=== PATIENT | male | born 1935 | race Caucasian/White ===

== ENCOUNTER 2019-06-24 10:34 | Outpatient (CLI) | payer MEDICARE, SELFPAY ==
[2019-06-24 10:57] LABS: Basophils Percent Auto 0.1 % (0.2-1.2); Eosinophils Absolute Auto 0.1 K/mm3 (0-0.3); Eosinophils Percent Auto 1.7 % (0-4.4); Hematocrit 34.5 % (42.0-52.0); Hemoglobin 11.4 g/dL (14.0-18.0); Immature Granulocyte Absolute 0.03 K/mm3 (0.00-0.031); Immature Granulocyte Percent A 0.4 % (0-0.5); Lymphocytes Absolute Auto 2.21 K/mm3 (0.9-3.2); Lymphocytes Percent Auto 31.1 % (18.3-44.2); Mean Corpuscular Hemoglobin 32.4 pg (26-34); Mean Platelet Volume 8.9 fl (7.4-10.4); Monocytes Absolute Auto 0.5 K/mm3 (0.1-0.6); Monocytes Percent Auto 7.2 % (2.6-8.5); Neutrophils Absolute Auto 4.2 K/mm3 (1.3-6.7); Neutrophils Percent Auto 59.5 % (45.5-73.1); Platelet Count Result 158 k/mm3 (150-375); Red Blood Count 3.52 M/mm3 (4.6-6.20); Red Cell Distribution Width 13.4 % (11.5-14.5); White Blood Count 7.1 K/mm3 (4.5-10.0)
[2019-06-24 11:11] LABS: Alanine Aminotransferase 20 U/L (4-50); Albumin Level 4.1 g/dL (3.5-5.1); Alkaline Phosphatase 101 U/L (38-126); Aspartate Amino Transferase 28 U/L (17-59); Bilirubin,Total 0.5 mg/dL (0.2-1.3); Blood Urea Nitrogen 58 mg/dL (9-20); Calcium 9.3 mg/dL (8.4-10.2); Carbon Dioxide 31 mmol/L (22-30); Chloride 107 mmol/L (98-107); Cholesterol 158 mg/dL (0-200); Estimated Glomerular Filt Rate 26; Glucose 110 mg/dL (75-110); HDL Direct 39 mg/dL; Potassium 4.5 mmol/L (3.4-5.0); Sodium 143 mmol/L (137-145); Triglycerides 97 mg/dL (<150)
[2019-06-24 11:22] LABS: LDL Cholesterol Direct 85 mg/dL
[2019-06-24 11:41] LABS: Thyroid Stimulating Hormone 0.811 uIU/mL (0.465-4.680)
== END 2019-06-24 10:35 | disposition home or self-care (01) ==
LOC: ANHLAB 10:36
PROVIDERS: PCP Family Medicine; Visit Provider Family Medicine
DX: I50.20 Unspecified systolic (congestive) heart failure (principal); E78.2 Mixed hyperlipidemia; I10 Essential (primary) hypertension; E11.49 Type 2 diabetes mellitus with other diabetic neurological complication
CPT/HCPCS: 36415; 80053; 80061; 84443; 85025

== ENCOUNTER 2019-08-31 06:20 | Observation (INO) | payer MEDICARE, SELFPAY ==
[2019-08-31] VITALS (12 sets, daily range): BP systolic 120–148; BP diastolic 69–85; PULSE 56–77; RESP 12–20; TEMP 36–36.8; O2SAT 94–97; BMI 39.9
--- NOTE | ~2019-08-31 | US_ITS ---
US venous doppler [facility] DATE: 09/01/2019 10:12 INDICATION: Swelling of the lower extremities TECHNIQUE: Real-time and color flow imaging and Doppler analysis of the veins of the lower extremitie s COMPARISON: None FINDINGS: The greater saphenous veins are patent. There is spontaneous and phasic flow and normal aug mentation and color flow signal and normal compression of the deep veins of both lower extremities. IMPRESSION: No evidence of deep venous thrombosis of the legs Reviewed, dictated and finalized at [facility] Reviewed, dictated and finalized at [facility].
--- NOTE | ~2019-08-31 | XR_ITS ---
XR chest 2V DATE: 08/31/2019 06:54 INDICATION: Shortness of breath TECHNIQUE: AP and lateral views COMPARISON: 04/04/2016 portable AP chest at 1225 hours FINDINGS: Cardiac megaly. Aortic calcification and tortuosity. Left-sided dual-lead pacemaker device with leads overlying right atrial appendage and right ventricle. There is mild pulmonary vascular congestion and redistribution, prominence of the minor fissure and s uggestion of minimal pleural effusions. Minimal perihilar and lower lung infiltrates which may be sec ondary to pulmonary edema versus atelectasis or pneumonia or aspiration. Diffuse osteopenia. IMPRESSION: Mild congestive heart failure, new since 04/04/2016 Mild bilateral perihilar and lower lung infiltrates may be secondary to pulmonary edema, pneumonia an d/or aspiration Reviewed, dictated and finalized at [facility]. IMPRESSION: Mild congestive heart failure, new since 04/04/2016 Mild bilateral perihilar and lower lung infiltrates may be secondary to pulmona ry edema, pneumonia and/or aspiration
--- NOTE | 2019-08-31 06:21 | ED.SOB ---
HPI - SOB/Dyspnea General Chief Complaint: Shortness of Breath/Dyspnea <Kizzy Victor MD - Last Filed: 08/31/19 06:45> Stated Complaint: diff breathing <Kizzy Victor MD - Last Filed: 08/31/19 06:45> Time Seen by Provider: 08/31/19 06:21 <Kizzy Victor MD - Last Filed: 08/31/19 06:45> Source: patient, family and EMS <Kizzy Victor MD - Last Filed: 08/31/19 06:45> Mode of arrival: EMS <Kizzy Victor MD - Last Filed: 08/31/19 06:45> Limitations: no limitations <Kizzy Victor MD - Last Filed: 08/31/19 06:45> History of Present Illness HPI Narrative: Patient is an 83-year-old male with a history of hypertension, coronary artery disease, numerous AR with stenting, CHF, and Stage IV CKD who presents for evaluation of shortness of breath. Patient reportedly has had developing shortness of breath over the past several weeks. Patient denies cough or chest pain, states he just feels as if he can not get a deep breath patient denies fever, chills, cough, congestion, sore throat. No loss of taste or sense or smell. Patient does report some mild lower extremity swelling, difficulty breathing when he lays flat. Patient has been using his CPAP machine at night, but awakened because he felt as if he could not get a deep breath. Patient denying any chest pain, palpitations. No recent immobility. No recent surgeries. No recent long car or air travel. <Kizzy Victor MD - Last Filed: 08/31/19 06:45> Related Data Home Medications: Home Medications Medication Instructions Recorded Confirmed aspirin 81 mg tablet,delayed 81 mg PO DAILY 04/17/19 08/31/19 release cholecalciferol (vitamin D3) 100 3,000 unit PO DAILY cap 04/17/19 08/31/19 mcg (4,000 unit) capsule clopidogrel 75 mg tablet 75 mg PO DAILY 04/17/19 08/31/19 furosemide 40 mg tablet 40 mg PO TID tablet 04/17/19 08/31/19 levothyroxine 50 mcg capsule 50 mcg PO DAILY 04/17/19 08/31/19 loteprednol etabonate 0.5 % eye 3 drop EACH EYE HS 04/17/19 08/31/19 gel drops vitamin B complex 1 tablet PO DAILY 04/17/19 08/31/19 Daily Multiple Vitamins/Iron 1 ea DAILY 08/31/19 08/31/19 acetaminophen 500 mg PO Q6H PRN 08/31/19 08/31/19 alprazolam 0.5 mg PO PRN PRN 08/31/19 08/31/19 carboxymethylcellulose sodium 1 drp OPHTHALMIC (EYE) 08/31/19 08/31/19 [Refresh Tears] USEASDIRECTD PRN dextran 70-hypromellose [GenTeal 1 drp OPHTHALMIC (EYE) PRN PRN 08/31/19 08/31/19 Tears Mild] diphenhydramine-acetaminophen 1 tablet PO HS PRN 08/31/19 08/31/19 [Tylenol PM Extra Strength] vit C,H-Vj-fpmmi-lutein-zeaxan 1 tablet DAILY 08/31/19 08/31/19 [PreserVision AREDS-2] <Kizzy Victor MD - Last Filed: 08/31/19 06:45> Allergies/Adverse Reactions: Allergies Allergy/AdvReac Type Severity Reaction Status Date / Time Androgenic Anabolic Steroid Allergy Unknown breathing Verified 04/17/19 08:26 problems betamethasone Allergy Unknown htn Verified 04/17/19 08:26 bupivacaine Allergy Unknown htn Verified 04/17/19 08:26 lidocaine Allergy Unknown htn Verified 04/17/19 08:26 norflurane [Pod-Care 100KG] Allergy Unknown htn Verified 04/17/19 08:26 oxycodone Allergy Unknown breathing Verified 04/17/19 08:26 troubles pentafluoropropane (HFC Allergy Unknown htn Verified 04/17/19 08:26 [id number]) [Pod-Care 100KG] triamcinolone Allergy Unknown htn Verified 04/17/19 08:26 [Pod-Care 100KG] trolamine salicylate Allergy Unknown htn Verified 04/17/19 08:26 [Aspercreme] <Kizzy Victor MD - Last Filed: 08/31/19 06:45> Review of Systems Review of Systems: Narrative: CONSTITUTIONAL: Denies fever, chills, or sweats. EYES: Denies visual changes ENT: Denies rhinorrhea, congestion, sore throat, or otalgia. CARDIOVASCULAR: Denies chest pain, palpitations, reports bilateral lower extremity edema RESPIRATORY: Denies cough, reports shortness of breath GASTROINTESTINAL: Denies abdominal pain, nausea, vomiting, or di
--- NOTE | 2019-08-31 06:32 | ECG_ITS ---
Measurements Intervals [place] Rate: 81 P: 199 KS: 205 QRS: -44 QRSD: 174 T: 146 QT: 422 QTc: 491 Interpretive Statements ELECTRONIC ATRIAL PACEMAKER WITH INHIBITION ELECTRONIC VENTRICULAR PACEMAKER FUSION COMPLEXES AND VENTRICULAR PREMATURE COMPLEX NO FURTHER INTERPRETATION IS POSSIBLE ATYPICAL ECG Electronically Signed On 08-31-2019 7:40:32 CDT by Jaime Fuchs D.O.
[2019-08-31 06:52] LABS: Basophils Percent Auto 0.2 % (0.2-1.2); Eosinophils Absolute Auto 0.2 K/mm3 (0-0.3); Eosinophils Percent Auto 3.1 % (0-4.4); Hematocrit 30.6 % (42.0-52.0); Hemoglobin 9.8 g/dL (14.0-18.0); Immature Granulocyte Absolute 0.01 K/mm3 (0.00-0.031); Immature Granulocyte Percent A 0.2 % (0-0.5); Lymphocytes Absolute Auto 1.58 K/mm3 (0.9-3.2); Lymphocytes Percent Auto 26.2 % (18.3-44.2); Mean Corpuscular Hemoglobin 31.8 pg (26-34); Mean Corpuscular Volume 99.4 fl (80-100); Mean Platelet Volume 9.9 fl (7.4-10.4); Monocytes Absolute Auto 0.6 K/mm3 (0.1-0.6); Monocytes Percent Auto 9.8 % (2.6-8.5); Neutrophils Absolute Auto 3.7 K/mm3 (1.3-6.7); Neutrophils Percent Auto 60.5 % (45.5-73.1); Platelet Count Result 150 k/mm3 (150-375); Red Blood Count 3.08 M/mm3 (4.6-6.20); Red Cell Distribution Width 13.8 % (11.5-14.5)
[2019-08-31 07:06] LABS: Prothrombin Time 13.3 Seconds (11.1-14.7)
[2019-08-31 07:07] LABS: Alanine Aminotransferase 18 U/L (4-50); Albumin Level 3.8 g/dL (3.5-5.1); Alkaline Phosphatase 130 U/L (38-126); Anion Gap 10.5 mmol/L (7-16); Aspartate Amino Transferase 28 U/L (17-59); Bilirubin,Total 0.7 mg/dL (0.2-1.3); Blood Urea Nitrogen 50 mg/dL (9-20); Calcium 8.8 mg/dL (8.4-10.2); Carbon Dioxide 25 mmol/L (22-30); Chloride 109 mmol/L (98-107); Estimated CRCL calculation 28 ml/min; Estimated Glomerular Filt Rate 27; Glucose 105 mg/dL (75-110); Potassium 4.5 mmol/L (3.4-5.0); Sodium 140 mmol/L (137-145)
[2019-08-31 07:08] LABS: Partial Thromboplastin Time 33.1 SECONDS (22.3-36.8)
[2019-08-31 07:19] LABS: NT Pro B Type Natriuretic Pept 5900 PG/ML (5-100); Troponin I 0.032 ng/mL (0.000-0.034)
[2019-08-31] MEDS: FUROSEMIDE INJ 40 MG/4 ML VIAL IV PUSH ×2 (08:03→21:18)
--- NOTE | 2019-08-31 09:58 | ADMGEN ---
This patient, Desean Montiel, was admitted to Medical Room [facility]- at 0945. Patient/family oriented to hospital policies and general routines including ID bracelet, bed and alarms, visiting hours, pain management, procedures, bathroom and other care routines, personal items, smoking policy, room service/diet, and visiting hours. Valuables list has been completed. Information on how to activate the Rapid Response Team has been discussed. Patient/Family are encouraged to report perceived risks to care and to ask questions if they do not understand what they are told or what they should do.
--- NOTE | 2019-08-31 15:15 | PM.IMHP ---
H&P: HPI History of Present Illness Chief complaint: Shortness of breath. 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 Over the last couple of months he has noticed that he tires more easily when up walking and doing activities, however it has gotten significantly worse over the past week or so. His is currently in [facility] after a hip fracture and it is to the point where he is having to sit and rest to catch his breath 3 or 4 times when walking from the entrance to the hospital up to the rehab center. He tells me that it feels as though he just cannot get in a deep breath, and in fact he reports that early this morning it felt like I had a 500 pound weight on my chest and I could not take in a breath. He then went to the living room to the recliner, and felt a little bit better when sitting upright. With further questioning, he does admit that he has not been taking his morning dose of Lasix for the past 1 week, as he has been coming to the hospital to visit his and he did not want to be going to the bathroom all the time. He has chronic lower extremity edema and is unsure whether not it has changed recently. He does not believe that he has had any significant weight gain. It is also noted that he has been having difficulties with his CPAP, and he is typically only wearing it 2 to 3 hours a night. He has not had any further chest pain or heaviness. He denies fever, chills, sweats, cold and flu symptoms, and cough. No dysphagia or concerns for aspiration. No pleuritic pain or calf pain. No history of venous thromboembolism. Review of Systems Review of Systems: Narrative: Twelve systems were reviewed with pertinent positives and negatives as per HPI. No recent travel or sick contacts. He denies cough. No nausea, vomiting, or diarrhea. Patient and daughter also reports that he has seemed more weak over the past couple of months, and in fact has had several falls, 2 just this week. He reports that his right knee just gives way and he falls. There has been no head trauma or loss of consciousness. States his diabetes is pretty well controlled. He has not had any significant highs or lows. Except as documented, all other systems were reviewed and are negative. [facility] Past Medical History Medical History Benign prostatic hyperplasia Chronic anemia Chronic kidney disease, stage 4 (severe) Baseline creatinine is around 2.40. Combined congestive systolic and diastolic heart failure With improved ejection fraction on echocardiogram in November 2014. Coronary artery disease With history of GA and multiple PCIs. Cyst of lateral meniscus Essential hypertension GI bleed (~04/2012) Due to internal hemorrhoid bleeding. Gout Hypothyroidism Male erectile disorder Mixed hyperlipidemia Obstructive sleep apnea on CPAP Paroxysmal atrial fibrillation Presence of biventricular cardiac pacemaker For symptomatic bradycardia. 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 Surgical History Surgical History History of appendectomy History of arthroplasty of right knee (~10/2011) History of cardiac catheterization With PTCA/ stent on multiple occasions. History of cardiac radiofrequency ablation History of cholecystectomy History of corneal transplant History of gastric bypass (~2006) History of surgery on arm Right arm ORIF after
[2019-08-31] MEDS: FUROSEMIDE INJ 40 MG/4 ML VIAL 20 MG IV PUSH (22:07)
[2019-08-31] MEDS: carvediloL 6.25 MG TABLET PO (22:08)
[2019-08-31] MEDS: ALPRAZolam 0.5 MG TABLET PO (22:09)
[2019-08-31] MEDS: ACETAMINOPHEN 500 MG TABLET PO (22:09)
--- NOTE | 2019-08-31 23:10 | PHAR ---
Pharmacy verified: Loteprednol Etabonate [Lotemax] 0.5% SUSP *SHAKE* and Instill 1 drop in each eye at bedtime
[2019-09-01] VITALS (10 sets, daily range): BP systolic 128–131; BP diastolic 67–86; PULSE 70–93; RESP 15–18; TEMP 36–36.2; O2SAT 95–98
[2019-09-01] MEDS: LEVOTHYROXINE SODIUM 50 MCG TABLET PO (05:29)
[2019-09-01 05:46] LABS: Basophils Percent Auto 0.2 % (0.2-1.2); Eosinophils Absolute Auto 0.2 K/mm3 (0-0.3); Eosinophils Percent Auto 2.6 % (0-4.4); Hematocrit 31.3 % (42.0-52.0); Hemoglobin 10.1 g/dL (14.0-18.0); Immature Granulocyte Absolute 0.01 K/mm3 (0.00-0.031); Immature Granulocyte Percent A 0.2 % (0-0.5); Lymphocytes Absolute Auto 1.71 K/mm3 (0.9-3.2); Lymphocytes Percent Auto 29.2 % (18.3-44.2); Mean Corpuscular HGB Conc 32.3 g/dl (32-36); Mean Corpuscular Hemoglobin 31.7 pg (26-34); Mean Corpuscular Volume 98.1 fl (80-100); Mean Platelet Volume 10.3 fl (7.4-10.4); Monocytes Absolute Auto 0.6 K/mm3 (0.1-0.6); Monocytes Percent Auto 9.6 % (2.6-8.5); Neutrophils Absolute Auto 3.4 K/mm3 (1.3-6.7); Neutrophils Percent Auto 58.2 % (45.5-73.1); Platelet Count Result 163 k/mm3 (150-375); Red Blood Count 3.19 M/mm3 (4.6-6.20); Red Cell Distribution Width 13.6 % (11.5-14.5); White Blood Count 5.9 K/mm3 (4.5-10.0)
[2019-09-01 06:17] LABS: Anion Gap 9.5 mmol/L (7-16); Blood Urea Nitrogen 52 mg/dL (9-20); Calcium 8.8 mg/dL (8.4-10.2); Carbon Dioxide 28 mmol/L (22-30); Chloride 106 mmol/L (98-107); Estimated CRCL calculation 27 ml/min; Estimated Glomerular Filt Rate 26; Glucose 114 mg/dL (75-110); Magnesium 2.3 mg/dL (1.6-2.3); Potassium 4.5 mmol/L (3.4-5.0); Sodium 139 mmol/L (137-145)
[2019-09-01 06:32] LABS: Troponin I 0.041 ng/mL (0.000-0.034)
[2019-09-01 08:15] LABS: Glucose Point of Care 180 (65-105)
[2019-09-01] MEDS: allopurinoL 300 MG TABLET PO (09:11)
[2019-09-01] MEDS: TAMSULOSIN HCL 0.4 MG CAPSULE PO (09:12)
[2019-09-01] MEDS: carvediloL 6.25 MG TABLET PO (09:12)
[2019-09-01] MEDS: CLOPIDOGREL BISULFATE 75 MG TABLET PO (09:12)
[2019-09-01] MEDS: ASPIRIN 81 MG ENTERIC TABLET PO (09:12)
[2019-09-01] MEDS: ATORVASTATIN 10 MG TABLET PO (09:12)
[2019-09-01] MEDS: THERAPEUTIC MULTIVITAMINS/MINERALS TAB (*BKC) 1 TABLET BY MOUTH (09:12)
[2019-09-01] MEDS: CHOLECALCIFEROL 1,000 UNIT TABLET 3000 UNITS PO (09:12)
[2019-09-01] MEDS: OPTI-GEN TAB 1 TABLET BY MOUTH (09:13)
[2019-09-01] MEDS: FUROSEMIDE INJ 100 MG/10 ML VIAL 60 MG IV PUSH (09:13)
[2019-09-01] MEDS: GABAPENTIN 300 MG CAPSULE PO (09:13)
[2019-09-01] MEDS: VITAMIN B COMPLEX CAPSULE 1 CAP PO (09:13)
[2019-09-01] MEDS: ISOSORBIDE MONONITRATE 60 MG TAB.ER.24H PO (09:13)
--- NOTE | 2019-09-01 11:14 | PM.IMPN ---
Progress Note: A&P Assessment and Plan (1) Acute on chronic congestive heart failure: Code(s): I50.9 - Heart failure, unspecified Status: Acute Assessment and Plan: The patient reports that he did not take his morning lasix dose for 1 week. He reports significant symptomatic improvement following diuresis and he has had good urine output with 2.8 liters since admission. Continue IV furosemide and likely switch to PO regimen later today. Monitor I/O and daily weights. He is established with Dr. Saldivar for primary cardiology. I have consulted cardiology and recommendations are greatly appreciated. (2) Elevated troponin: Code(s): R79.89 - Other specified abnormal findings of blood chemistry Status: Acute Assessment and Plan: His troponins were elevated up to 0.041 with flat trend. This is likely elevated in the setting of chronic kidney disease and acute on chronic CHF exacerbation and not due to ACS. He notes significant improvement in his dyspnea following diuresis. (3) Coronary artery disease: Code(s): I25.10 - Atherosclerotic heart disease of [place] coronary artery without angina pectoris Status: Acute Assessment and Plan: Chronic and stable with no complaints of angina. Continue ASA and plavix. Continue carvedilol. Continue atorvastatin. (4) Chronic anemia: Code(s): D64.9 - Anemia, unspecified Status: Acute Assessment and Plan: Hemoglobin was down about a gram from baseline at 9.8. This may be dilutional from hypervolemia. Repeat hemoglobin is 10.1 and Hct 31.3. He has chronic anemia, likely due to his chronic renal insufficiency. Further workup outpatient as indicated per his PCP's discretion. Continue to monitor. Transfuse PRN to maintain hemoglobin >7. (5) Chronic kidney disease, stage 4 (severe): Code(s): N18.4 - Chronic kidney disease, stage 4 (severe) Status: Acute Assessment and Plan: Creatinine is stable on review of previous labs. Cr is 2.4 today and BUN 52 which appears close to baseline. Avoid nephrotoxins and renally dose medications. Monitor renal function closely while diuresing. (6) Essential hypertension: Code(s): I10 - Essential (primary) hypertension Status: Acute Assessment and Plan: Blood pressures were reviewed and are reasonably controlled. Continue carvedilol, furosemide, and imdur. Continue to monitor. (7) Hypothyroidism: Code(s): E03.9 - Hypothyroidism, unspecified Status: Acute Assessment and Plan: TSH was 1.25. Continue levothyroxine. (8) Type 2 diabetes mellitus: Code(s): E11.9 - Type 2 diabetes mellitus without complications Status: Acute Assessment and Plan: Blood sugars were reviewed and are reasonably controlled. Hold glimepiride while hospitalized. Repeat hemoglobin A1c is pending. Continue sliding scale insulin, ACHS glucose monitoring, and hypoglycemia protocol. (9) Obstructive sleep apnea on CPAP: Code(s): G47.33 - Obstructive sleep apnea (adult) (pediatric); Z99.89 - Dependence on other enabling machines and devices Status: Acute Assessment and Plan: He is working with his PCP to change his home CPAP settings. He reports that he slept very well with the CPAP here overnight. (10) Benign prostatic hyperplasia: Code(s): N40.0 - Benign prostatic hyperplasia without lower urinary tract symptoms Status: Acute Assessment and Plan: Chronic with no acute issues. Continue tamsulosin. (11) Generalized weakness: Code(s): R53.1 - Weakness Status: Acute Assessment and Plan: He reports progressive weakness and two falls in the past several months. Initiate fall precautions. PT/OT are seeing the patient in consultation and recommendations are appreciated. Subjective Date/time seen: 09/01/19 11:14 Interval history: Mr. Montiel is a ple
[2019-09-01 11:21] LABS: Glucose Point of Care 199 (65-105)
--- NOTE | 2019-09-01 12:38 | PM.CNCAR ---
Assessment and Plan Assessment and plan (1) Congestive heart failure: Code(s): I50.9 - Heart failure, unspecified Status: Acute Assessment and Plan: acute on chronic systolic and diastolic heart failure secondary to medication noncompliance effectively reducing Lasix to once daily for the past week resulting in decompensated heart failure. Patient states he has returned to baseline and has no complaints at this time. Denies shortness of breath or chest pain. Continue home cardiovascular medical therapy including furosemide. Counseled ports of compliance. Patient states he has learned his lesson and will do so but only did this noted to function as he was visiting his . (2) CAD (coronary artery disease): Code(s): I25.10 - Atherosclerotic heart disease of [place] coronary artery without angina pectoris Status: Acute Assessment and Plan: continue home medical therapy. Mild flat troponin elevation not acute coronary syndrome type 2 infarct secondary to acute on chronic decompensated heart failure and chronic kidney disease. (3) Elevated troponin: Code(s): R79.89 - Other specified abnormal findings of blood chemistry Status: Acute Assessment and Plan: as above. Not ACS. (4) Essential hypertension: Code(s): I10 - Essential (primary) hypertension Status: Acute Assessment and Plan: Continue medical therapy. Fair control overall. Additional Plan Disposition per hospitalist service. No further inpatient cardiovascular workup indicated. Patient will be discharged on same cardiovascular medical therapy. He will follow up in the office with Dr. Saldivar. Contact the office on Monday for follow-up appointment. History of Present Illness History of Present Illness Consult date/time: Date of service:09/01/19 12:38 This is a cardiology consultation at the request of Angeles Zaidi of the [facility] for our opinion regarding congestive heart failure and elevated troponin. Requesting physician: Angeles Zaidi PA-C Consult reason: congestive heart failure Reason For Visit: Shortness of breath. Narrative: Patient is a very pleasant 83-year-old male followed by Dr. Saldivar with past medical history severe coronary disease, ischemic cardiomyopathy with improvement in EF, chronic systolic diastolic heart failure, obstructive sleep apnea on CPAP, diabetes mellitus, chronic kidney disease stage 3 to 4, chronic anemia who was in his usual state of health when over the past week he states he has been more fatigued, shortness of breath with any activity with worsening lower extremity edema. States he had been skipping his morning Lasix dose as he had been visiting his who was in the hospital so that he did not have to use the restroom frequently. He denies weight gain. Denies any exertional chest pain but noted when he could not breathe chest felt heavy but this is completely resolved. He did admit to orthopnea improved sitting up in the recliner but states now he is at his baseline. Troponins are mildly elevated but fairly flat 0.04. Patient feels well would like to be discharged home. He denies any fevers or chills. He has no other complaints and notes his edema is improving as well. Review of Systems Review of Systems: All systems reviewed & are unremarkable except as noted in HPI and below Constitutional: Constitutional: Reports as per HPI, Reports no additional constitutional complaints and Reports fatigue Eyes: Eyes: Reports as per HPI and Reports no additional eye complaints ENT: Reports system reviewed and no additional complaints, except as documented and Reports as per HPI Cardiovascular: Cardiovascular: Reports as per HPI, Reports no additional cardiovascular complaints, Denies chest pain, Reports pedal edema, Reports leg edema and Denies palpitations Respiratory: Respiratory: Reports as per HPI, Reports no additio
[2019-09-01 16:43] LABS: Glucose Point of Care 103 (65-105)
--- NOTE | 2019-09-01 16:43 | PM.DS ---
DS: Admitting Diagnosis Admitting Diagnosis Admitting Diagnosis: Heart failure, unspecified DS: Discharge Diagnosis Discharge Diagnosis (1) Acute on chronic congestive heart failure: Qualifiers: Heart failure type: unspecified Qualified Code(s): I50.9 - Heart failure, unspecified Code(s): I50.9 - Heart failure, unspecified Status: Acute Assessment and Plan: Discharge Summary: Date of service 09/01/19 Mr. Montiel is an 84 y.o. male with PMH significant for CAD, combined systolic and diastolic congestive heart failure, ANTHONY, T2DM, HTN, CKD, chronic anemia, and hypothyroidism who presented to the emergency department for the evaluation of dyspnea. He reported progressive dyspnea on exertion. He endorsed that he missed his morning dose of lasix for the past week because he was visiting his who was in rehab and he did not want to have to use the restroom while visiting. Initial workup in the emergency department was notable for Hb 9.8, Hct 30.6, BUN 50, Cr 2.3, CO2 31, BNP 5900, troponin with elevation up to 0.041 with a flat trend, and CXR with mild pulmonary vascular congestion and redistribution, suggestion of minimal pleural effusions, and minimal perihilar and lower lung infiltrates. He was treated with IV lasix for a presumed acute on chronic congestive heart failure exaceration and admitted to the hospitalist service for further evaluation and management. He was treated with continued IV lasix. He noted significant symptomatic improvement following diuresis. He had excellent urine output with 3.7L output during his stay. His dyspnea resolved completely. He was evaluated by cardiology and no further cardiovascular workup was felt to be indicated. Cardiology recommended he continue his current medication regimen and follow-up with his primary claims attorney, Dr. Saldivar, outpatient. He felt much better and wished to be discharged home. He was discharged in stable condition on the afternoon of 09/01/19. (2) Elevated troponin: Code(s): R79.89 - Other specified abnormal findings of blood chemistry Status: Acute Assessment and Plan: His troponins were elevated up to 0.041 with flat trend. This was likely elevated in the setting of chronic kidney disease and acute on chronic CHF exacerbation and not due to ACS. He notes significant improvement in his dyspnea following diuresis. Cardiology was consulted and his troponin elevation was not felt to be due to ACS. (3) Coronary artery disease: Code(s): I25.10 - Atherosclerotic heart disease of [place] coronary artery without angina pectoris Status: Acute Assessment and Plan: Chronic and stable with no complaints of angina. Continue ASA and plavix. Continue carvedilol. Continue atorvastatin. (4) Chronic anemia: Code(s): D64.9 - Anemia, unspecified Status: Acute Assessment and Plan: Hemoglobin was down about a gram from baseline at 9.8 at presentation. This may be dilutional from hypervolemia. Repeat hemoglobin was 10.1 and Hct 31.3. He has chronic anemia, likely due to his chronic renal insufficiency. Further workup outpatient as indicated per his PCP's discretion. (5) Chronic kidney disease, stage 4 (severe): Code(s): N18.4 - Chronic kidney disease, stage 4 (severe) Status: Acute Assessment and Plan: Creatinine was stable on review of previous labs. He needs to continue follow-up with Dr. Krishnamurthy. (6) Essential hypertension: Code(s): I10 - Essential (primary) hypertension Status: Acute Assessment and Plan: Blood pressures were reviewed and are reasonably controlled. Carvedilol, furosemide, and imdur were continued. (7) Hypothyroidism: Code(s): E03.9 - Hypothyroidism, unspecified Status: Acute Assessment and Plan: TSH was 1.25. Levothyroxine was continued. (8) Type 2 diabetes mellitus: Code(s): E11.9 - Type
[2019-09-02 11:45] LABS: Hemoglobin A1C 5.6 % (<5.7)
== END 2019-09-01 18:29 | disposition home or self-care (01) ==
LOC: ANHED 07:03 → ANH2MED 08:18
PROVIDERS: Emergency Medicine; Physician Assistant; Admitting Provider Family Medicine; Emergency Provider General Practice; PCP Family Medicine; Visit Provider Internal Medicine
DX: I13.0 Hypertensive heart and chronic kidney disease with heart failure and stage 1 through stage 4 chronic kidney disease, or unspecified chronic kidney disease (principal); I50.43 Acute on chronic combined systolic (congestive) and diastolic (congestive) heart failure; E11.22 Type 2 diabetes mellitus with diabetic chronic kidney disease; N18.4 Chronic kidney disease, stage 4 (severe); T50.1X6A Underdosing of loop [high-ceiling] diuretics, initial encounter; Z91.128 Patient's intentional underdosing of medication regimen for other reason; R79.89 Other specified abnormal findings of blood chemistry; I25.10 Atherosclerotic heart disease of native coronary artery without angina pectoris; E11.319 Type 2 diabetes mellitus with unspecified diabetic retinopathy without macular edema; E11.40 Type 2 diabetes mellitus with diabetic neuropathy, unspecified; E78.2 Mixed hyperlipidemia; D64.9 Anemia, unspecified; G47.33 Obstructive sleep apnea (adult) (pediatric); E03.9 Hypothyroidism, unspecified; N40.0 Benign prostatic hyperplasia without lower urinary tract symptoms; M10.9 Gout, unspecified; R53.1 Weakness; Z79.82 Long term (current) use of aspirin; Z79.899 Other long term (current) drug therapy; Z79.84 Long term (current) use of oral hypoglycemic drugs; Z87.891 Personal history of nicotine dependence; Z91.81 History of falling; Z94.7 Corneal transplant status; Z95.0 Presence of cardiac pacemaker; Z96.651 Presence of right artificial knee joint; Z98.61 Coronary angioplasty status; Z98.84 Bariatric surgery status; Z99.89 Dependence on other enabling machines and devices
CPT/HCPCS: 36415; 71046; 80048; 80053; 83036; 83735; 83880; 84443; 84484; 85025; 85610; 85730; 93005; 93970; 96374; 96376; 97161; 97165; 99285; A9270; G0378; J1940

== ENCOUNTER 2019-10-13 04:35 | Inpatient (IN) | payer MEDICARE, SELFPAY ==
[2019-10-13] VITALS (58 sets, daily range): BP systolic 63–124; BP diastolic 30–75; PULSE 69–113; RESP 10–34; TEMP 36.3–36.8; O2SAT 68–100
--- NOTE | ~2019-10-13 | CT_ITS ---
EXAMINATION: CT brain wo con DATE: 10/20/2019 13:04 INDICATION: Fusion. Respiratory arrest. TECHNIQUE: Computed tomography (CT) of the head was performed without intravenous contrast. The dose- length product was 605.33 mGy-cm. The mA was adjusted according to patient size. Iterative reconstruc tion technique was employed. COMPARISON: None FINDINGS: No acute intracranial hemorrhage, infarction, mass or mass effect. No ventriculomegaly or m idline shift. Mild generalized atrophy. There are scattered mild periventricular and subcortical whit e matter changes, most likely related to small vessel ischemic disease (microangiopathy). Basilar cis terns are patent. There is intracranial atherosclerosis. Paranasal sinuses and mastoids are pneumatiz ed. No depressed skull fractures. IMPRESSION: 1. No acute intracranial abnormality. 2: Chronic age-related findings. Reviewed, dictated and finalized at location A.
--- NOTE | ~2019-10-13 | US_ITS ---
US venous doppler [facility] DATE: 10/13/2019 14:47 INDICATION: Respiratory failure TECHNIQUE: Real-time and color flow imaging and Doppler analysis of the veins of both lower extremiti es COMPARISON: 09/01/2019 venous duplex examination of the lower extremities FINDINGS: The greater saphenous veins are patent. There is spontaneous and phasic flow and normal aug mentation and color flow signal and normal compression of the deep veins of both legs. IMPRESSION: No evidence of deep venous thrombosis of the legs Reviewed, dictated and finalized at Location A. Reviewed, dictated and finalized at location A.
--- NOTE | ~2019-10-13 | XR_ITS ---
EXAMINATION: XR chest 1V portable DATE: 10/15/2019 05:47 INDICATION: Acute respiratory failure TECHNIQUE: frontal view of the chest was obtained. COMPARISON: Chest radiograph dated 10/14/2019 FINDINGS: Endotracheal tube tip 3.1 cm above the avis. Nasogastric tube extends below the left hemidiaphragm with distal tip collimated off the study. Unchanged small bilateral pleural effusions. Persistent airspace opacities in the left lower lung zon e. No pneumothorax. Cardiomegaly with pulmonary vascular congestion but no kayla pulmonary edema. Rosa l lead pacemaker seen with leads projecting over the expected locations of the right atrium and right ventricle. Old healed right rib fracture. IMPRESSION: 1. Unchanged small bilateral pleural effusions with associated left basilar atelectasis and/or pneumo mann. 2. Cardiomegaly and pulmonary vascular congestion. Reviewed, dictated and finalized at location A. IMPRESSION: 1. Unchanged small bilateral pleural effusions with associated left basilar ate lectasis and/or pneumonia. 2. Cardiomegaly and pulmonary vascular congestion.
--- NOTE | ~2019-10-13 | CT_ITS ---
EXAMINATION: CT chest high resolution wo co DATE: 10/13/2019 11:49 INDICATION: Atypical pneumonia TECHNIQUE: Computed tomography (CT) of the chest was performed without intravenous contrast. Automate d exposure control and iterative reconstruction technique were employed. Exam dose: 908.94 mGy-cm to anna exam DLP. High-resolution COMPARISON: None FINDINGS: Cardiomegaly. There is extensive coronary artery calcification. Pacemaker leads in the righ t atrium and right ventricle. No pericardial effusion. There is thoracic aortic and great vessel calcification. Abdominal aortic calcification. There is pr ominent calcification at the origins of the celiac, SMA and particularly renal arteries. ET tube in satisfactory position. There is dependent infiltrate or atelectasis of the left upper lobe. There is more prominent atelect asis/consolidation of the lower lobes, with air bronchograms, left greater than right. The left lower lobe is virtually completely consolidated, with air bronchograms. There is slight right pneumothorax. Small right pleural effusion, mild to moderate left pleural effusion. Status post cholecystectomy. There are slightly angulated nondisplaced apparently recent bilateral anterior second through seventh rib fractures, possibly related to cardiopulmonary resuscitation There is mild anterior wedge compression fracture deformity of undetermined age of T12. Diffuse idiop athic skeletal hyperostosis of the thoracic spine. IMPRESSION: Bilateral lower lobe atelectasis/consolidation, involving virtually the entire left lowe r lobe and to a lesser extent the right lower lobe Mild dependent infiltrate or atelectasis in the left upper lobe Slight right pneumothorax ET tube in satisfactory position Slight right and mild to moderate left pleural effusion Cardiomegaly Extensive atherosclerosis Bilateral anterior second through seventh rib fractures, possibly due to cardiopulmonary resuscitatio n Mild anterior wedge compression fracture deformity of T12 Reviewed, dictated and finalized at Location A. Reviewed, dictated and finalized at location A. IMPRESSION: Bilateral lower lobe atelectasis/consolidation, involving virtuall y the entire left lower lobe and to a lesser extent the right lower lobe Mild dependent infiltrate or atelectasis in the left upper lobe Slight right pneumothorax ET tube in satisfactory position Slight right and mild to moderate left pleural effusion Cardiomegaly Extensive atherosclerosis Bilateral anterior second through seventh rib fractures, possibly due to cardio pulmonary resuscitation Mild anterior wedge compression fracture deformity of T12
--- NOTE | ~2019-10-13 | XR_ITS ---
EXAMINATION: XR abdomen NG/feed tube insert INDICATION: OG placement TECHNIQUE: Portable AP KUB-NG at 0454 hours COMPARISON: 08/29/2011 FINDINGS: The OG tube is in the stomach. Cardiomegaly is noted. Interstitial and airspace opacities a re present in the mid and lower lung zones. Surgical clips in the right upper quadrant are likely fro m prior cholecystectomy. IMPRESSION: 1. OG tube in the stomach. 2. Cardiomegaly with pulmonary edema. Reviewed, dictated and finalized at location A.
--- NOTE | ~2019-10-13 | XR_ITS ---
EXAMINATION: XR chest 1V portable INDICATION: Attempted central line insertion TECHNIQUE: Portable AP chest at 0917 hours COMPARISON: 0453 hours FINDINGS: The endotracheal tube ends approximately 2.3 cm above the avis. The nasogastric tube is f ollowed as far as the stomach. Its tip is beyond the inferior margin of the radiograph. No central ve nous catheter is identified. There is stable cardiomegaly. Diffuse interstitial pattern persists with slight worsening in the left midlung zone. There are small pleural effusions. No pneumothorax is chong ntified. A dual-lead cardiac pacemaker of the left chest wall ends with leads in expected locations. IMPRESSION: 1. Cardiomegaly with pulmonary edema, slightly worse on the left midlung zone. 2. No pneumothorax. 3. Small pleural effusions. Reviewed, dictated and finalized at location A.
--- NOTE | ~2019-10-13 | XR_ITS ---
XR chest 1V portable 10/19/2019 07:02 Indication: Dyspnea. Respiratory distress. Procedure: AP portable chest Comparison: Comparison to multiple prior studies sequentially, with oldest reviewed study dated 10/2019. Findings: Moderate cardiomegaly. Pacemaker leads are stable. PICC line tip in the SVC. Diffuse bilate ral airspace disease. Small left pleural effusion. No pneumothorax. There is atherosclerosis. Impression: 1: Cardiomegaly with persistent unchanged diffuse bilateral airspace disease, most likely edema. Supe rimposed pneumonia not excluded. Reviewed, dictated and finalized at location A. Impression: 1: Cardiomegaly with persistent unchanged diffuse bilateral airspace disease, m ost likely edema. Superimposed pneumonia not excluded.
--- NOTE | ~2019-10-13 | XR_ITS ---
XR chest 1V portable DATE: 10/21/2019 05:58 INDICATION: Congestive heart failure, pneumonia TECHNIQUE: Portable AP chest on 10/21/2019 at 0535 hours COMPARISON: 10/19/2019 portable AP chest at 0524 hours FINDINGS: Left-sided dual-lead pacemaker device with leads overlying right atrium and right ventricle . Cardiomegaly. There is pulmonary vascular congestion and redistribution. There are mild bilateral p ulmonary infiltrates the central and lower lung zones. Aortic calcification and unfolding. Diffuse osteopenia. Old right rib fractures. IMPRESSION: Cardiomegaly, congestive heart failure and pulmonary edema; cannot exclude pneumonia No significant change since 10/19/2019. Reviewed, dictated and finalized at location A.
--- NOTE | ~2019-10-13 | XR_ITS ---
EXAMINATION: XR chest PICC line INDICATION: PICC insertion TECHNIQUE: Portable AP chest at 1313 hours COMPARISON: 10/18/2019 FINDINGS: A right upper extremity PICC has been inserted which ends with its tip in the midsuperior v jose cava. There is stable cardiomegaly. Airspace opacities of the mid and lower lung zones persist wi thout significant change. A small left pleural effusion is suggested. There is no pneumothorax. A linda l-lead cardiac pacemaker of the left chest wall ends with leads in expected locations. IMPRESSION: 1. Right upper extremity PICC insertion ending in the midsuperior vena cava. 2. Stable cardiomegaly. 3. Airspace opacities of the mid and lower lung zones, consistent with atelectasis and/or pulmonary e surinder and/or pneumonia. 4. Small left pleural effusion. Reviewed, dictated and finalized at location B. IMPRESSION: 1. Right upper extremity PICC insertion ending in the midsuperior vena cava. 2. Stable cardiomegaly. 3. Airspace opacities of the mid and lower lung zones, consistent with atelecta sis and/or pulmonary edema and/or pneumonia. 4. Small left pleural effusion.
--- NOTE | ~2019-10-13 | XR_ITS ---
EXAMINATION: XR chest 1V portable INDICATION: Acute respiratory failure TECHNIQUE: Portable AP chest at 0517 hours COMPARISON: 10/13/2019 FINDINGS: The endotracheal tube ends approximately 3.8 cm above the avis. The nasogastric tube is f ollowed as far as the stomach. Its tip is beyond the inferior margin of the radiograph. A mild diffus e interstitial pattern persists without significant change. Stable cardiomegaly is noted. Small pleur al effusions are stable. More focal airspace opacity is present in the left lung base. A dual-lead ca rdiac pacemaker of the left chest wall ends with leads in expected locations. IMPRESSION: 1. Cardiomegaly with unchanged mild pulmonary edema. 2. Small pleural effusions. 3. Left basilar airspace opacity, consistent with atelectasis versus pneumonia. Reviewed, dictated and finalized at location A.
--- NOTE | ~2019-10-13 | XR_ITS ---
EXAMINATION: XR chest ET placement INDICATION: Respiratory failure, endotracheal tube placement TECHNIQUE: Portable AP chest at 0453 hours COMPARISON: 08/31/2019 FINDINGS: The endotracheal tube ends approximately 3.0 cm above the avis. The nasogastric tube is f ollowed as far as the stomach. Its tip is beyond the inferior margin of the radiograph. The left cost ophrenic angle is excluded from the examination. There are minimal interstitial and airspace opacitie s of the mid and lower lung zones. Cardiomegaly is noted. There is no pneumothorax. No definite pleur al effusion is identified. A dual-lead cardiac pacemaker of the right-sided rib fractures are noted. chest wall ends with leads in expected locations. IMPRESSION: 1. Cardiomegaly with mild pulmonary edema. 2. Nasogastric and endotracheal tubes in adequate position. Reviewed, dictated and finalized at location A.
--- NOTE | ~2019-10-13 | XR_ITS ---
EXAMINATION: XR chest 1V portable DATE: 10/18/2019 05:49 INDICATION: Acute respiratory failure TECHNIQUE: frontal view of the chest was obtained. COMPARISON: Chest radiograph dated 10/17/19 FINDINGS: Significant improvement in aeration of the left upper and mid lung zones. Persistent airspace opaciti es in the bilateral mid and lower lung zones. Likely small left pleural effusion. No pneumothorax. Ca rdiomegaly. Coronary artery stenting. Dual lead pacemaker seen with leads projecting over the expecte d locations of the right atrium and right ventricle. IMPRESSION: 1. Significant interval improvement in aeration of the left lung. 2. Airspace opacities in the bilateral mid and lower lung zones which could represent pneumonia, atel ectasis, pulmonary edema or some combination thereof along with a likely small left pleural effusion. 3. Cardiomegaly. Reviewed, dictated and finalized at location A. IMPRESSION: 1. Significant interval improvement in aeration of the left lung. 2. Airspace opacities in the bilateral mid and lower lung zones which could rep resent pneumonia, atelectasis, pulmonary edema or some combination thereof kiera g with a likely small left pleural effusion. 3. Cardiomegaly.
--- NOTE | ~2019-10-13 | XR_ITS ---
EXAMINATION: XR chest 1V portable DATE: 10/16/2019 05:48 INDICATION: Acute respiratory failure TECHNIQUE: frontal view of the chest was obtained. COMPARISON: Chest radiograph dated 10/15/2019 FINDINGS: Endotracheal tube tip 2.5 cm above the avis. Nasogastric tube extends below the left hemidiaphragm with distal tip collimated off the study. Opacities at the bilateral lower lung zones without significant interval change in the right with inc rease on the left along with new mild patchy airspace opacities in the midlung zone. No pneumothorax. Cardiomegaly with pulmonary vascular congestion but without pulmonary edema. Coronary artery stentin g. Dual lead pacemaker seen with leads projecting over the expected locations of the right atrium and right ventricle. Old right rib fracture. IMPRESSION: 1. Unchanged tiny right and small left pleural effusions 2. Opacities unchanged the right lower lung zone and with increase in the left mid and lower lung zon es which could represent atelectasis and/or pneumonia. Reviewed, dictated and finalized at location A. IMPRESSION: 1. Unchanged tiny right and small left pleural effusions 2. Opacities unchanged the right lower lung zone and with increase in the left mid and lower lung zones which could represent atelectasis and/or pneumonia.
--- NOTE | ~2019-10-13 | XR_ITS ---
EXAMINATION: XR chest 1V portable INDICATION: Attempted central line placement TECHNIQUE: Portable AP chest at 1337 hours COMPARISON: 0917 hours FINDINGS: The endotracheal tube ends approximately 2.7 cm above the avis. The nasogastric tube is f ollowed as far as the stomach. Its tip is beyond the inferior margin of the radiograph. There is stab le cardiomegaly. A diffuse interstitial pattern persists without significant change. Small pleural ef fusions are present. No pneumothorax is identified. A dual-lead cardiac pacemaker of the left chest w all ends with leads in expected locations. IMPRESSION: 1. No new central line or pneumothorax identified. 2. Cardiomegaly with pulmonary edema. 3. Small pleural effusions. Reviewed, dictated and finalized at location A.
--- NOTE | ~2019-10-13 | XR_ITS ---
EXAMINATION: XR chest 1V portable DATE: 10/17/2019 06:15 INDICATION: Acute respiratory failure TECHNIQUE: frontal view of the chest was obtained. COMPARISON: Chest radiograph dated 10/16/2019 FINDINGS: Progression of now significant opacification of the entire left hemithorax without suggestion of sign ificant associated volume loss consistent with likely large left pleural effusion with associated ate lectasis and/or pneumonia. Increasing more patchy airspace opacities in the right mid to lower lung z one. The left side of the cardiomediastinal silhouette is largely obscured however heart size appears enlarged. Coronary artery stenting. Dual lead pacemaker seen with leads projecting over the expected locations of the right atrium and right ventricle. Old right rib fracture. IMPRESSION: 1. Definite increase in a now large left pleural effusion with underlying atelectasis and/or pneumoni a. 2. Increasing patchy airspace opacities in the right mid to lower lung zone which could represent pne umonia, pulmonary edema, atelectasis or some combination thereof 3. Cardiomegaly. Reviewed, dictated and finalized at location A. IMPRESSION: 1. Definite increase in a now large left pleural effusion with underlying atele ctasis and/or pneumonia. 2. Increasing patchy airspace opacities in the right mid to lower lung zone whi ch could represent pneumonia, pulmonary edema, atelectasis or some combination thereof 3. Cardiomegaly.
--- NOTE | 2019-10-13 04:39 | PC.NURSE ---
EDP Speedy in room for intubation. 0439 - successful intubation, good equal rise and fall of chest, size 7.5 ETT, good color change, 25 at the lip.
--- NOTE | 2019-10-13 04:46 | ED.GENADULT ---
HPI - General Adult General Chief complaint: Cardiac Arrest/CPR Stated complaint: vomiting blood Time Seen by Provider: 10/13/19 04:45 History of Present Illness HPI narrative: Patient is an 84-year-old male who presents the ER with complaint of bloody sputum. Is began over the evening. He is on Plavix. Has history of heart failure and coronary disease. Patient has had weakness since last week after helping his into the house. He spent 3 days in bed after that. He has had no complaints of chest pain per family. EMS reports patient started having low sats on the way and. They have some passive breaths with BVM. Patient was awake and holding his emesis bag upon arrival to the ER but as he was transferred to the bed he lost consciousness, became cyanotic, and lost pulses. CPR initiated immediately. Related Data Home Medications Medication Instructions Recorded Confirmed aspirin 81 mg tablet,delayed 81 mg PO DAILY 04/17/19 09/12/19 release cholecalciferol (vitamin D3) 100 3,000 unit PO DAILY cap 04/17/19 09/12/19 mcg (4,000 unit) capsule clopidogrel 75 mg tablet 75 mg PO DAILY 04/17/19 09/12/19 furosemide 40 mg tablet 40 mg PO TID tablet 04/17/19 09/12/19 loteprednol etabonate 0.5 % eye 3 drop EACH EYE HS 04/17/19 09/12/19 gel drops vitamin B complex 1 tablet PO DAILY 04/17/19 09/12/19 Daily Multiple Vitamins/Iron 1 ea DAILY 08/31/19 09/12/19 GenTeal Tears Mild 1 drp OPHTHALMIC (EYE) PRN PRN 08/31/19 09/12/19 PreserVision AREDS-2 1 tablet DAILY 08/31/19 09/12/19 Refresh Tears 1 drp OPHTHALMIC (EYE) 08/31/19 09/12/19 USEASDIRECTD PRN acetaminophen 500 mg PO Q6H PRN 08/31/19 09/12/19 alprazolam 0.5 mg PO PRN PRN 08/31/19 09/12/19 diphenhydramine-acetaminophen 1 tablet PO HS PRN 08/31/19 09/12/19 [Tylenol PM Extra Strength] Allergies Allergy/AdvReac Type Severity Reaction Status Date / Time Androgenic Anabolic Steroid Allergy Unknown breathing Verified 04/17/19 08:26 problems betamethasone Allergy Unknown htn Verified 04/17/19 08:26 bupivacaine Allergy Unknown htn Verified 04/17/19 08:26 lidocaine Allergy Unknown htn Verified 04/17/19 08:26 norflurane [Pod-Care 100KG] Allergy Unknown htn Verified 04/17/19 08:26 oxycodone Allergy Unknown breathing Verified 04/17/19 08:26 troubles pentafluoropropane (HFC Allergy Unknown htn Verified 04/17/19 08:26 [id number]) [Pod-Care 100KG] triamcinolone Allergy Unknown htn Verified 04/17/19 08:26 [Pod-Care 100KG] trolamine salicylate Allergy Unknown htn Verified 04/17/19 08:26 [Aspercreme] Review of Systems Review of Systems: ROS unobtainable: Yes unobtainable due to medical condition [facility] Social History Social History (Updated 10/13/19 @ 05:59 by Lali Soriano, DO) Social History: Surrogate decision maker: Claire, spouse. Code status: Full code Smoking packs per day: 2 Smoking cigarettes per day: 40.0 Years smoked: 18 Smoking pack-years: 36.00 Smoking status: Never smoker Tobacco type: cigarettes Smoking end date: 02/07/1968 Alcohol intake: never Substance use: never Additional living arrangements comments: Patient lives with his in [facility] in [place]. They have a cat and a dog. Additional occupation/education comments: Retired. Gender identity (if verbalized by the patient): Male Spiritual care concerns: No Exam Narrative: Exam Narrative: GENERAL: Ill-appearing, obese, and rapidly losing consciousness. HEAD: Normocephalic, atraumatic. ENT: Mucous membranes moist with bloody frothy sputum.. CHEST: Agonal breathing. Coarse lung sounds with ventilations. HEART: Pulseless with cyanotic extremities and cyanotic face. ABDOMEN: Soft, nontender, nondistended. EXTREMITIES: Normal range of motion. Trace edema. SKIN: Cool, dry, cyanotic. NEURO: GCS 3. Course Reevaluation(s) Reevaluation #1: CODE BLUE initiated upon transfer from EMS stretcher to the hospital bed. Patient min
[2019-10-13 04:57] LABS: Basophils Percent Auto 0.2 % (0.2-1.2); Eosinophils Percent Auto 0.3 % (0-4.4); Hematocrit 37.9 % (42.0-52.0); Hemoglobin 11.6 g/dL (14.0-18.0); Immature Granulocyte Absolute 0.19 K/mm3 (0.00-0.031); Immature Granulocyte Percent A 1.7 % (0-0.5); Lymphocytes Absolute Auto 3.43 K/mm3 (0.9-3.2); Lymphocytes Percent Auto 30.1 % (18.3-44.2); Mean Corpuscular HGB Conc 30.6 g/dl (32-36); Mean Corpuscular Hemoglobin 31.4 pg (26-34); Mean Corpuscular Volume 102.4 fl (80-100); Mean Platelet Volume 10.2 fl (7.4-10.4); Monocytes Absolute Auto 0.5 K/mm3 (0.1-0.6); Monocytes Percent Auto 4.7 % (2.6-8.5); Neutrophils Absolute Auto 7.2 K/mm3 (1.3-6.7); Nucleated Red Blood Cells Absolute Auto 0.1 K/mm3 (0.0-0.012); Nucleated Red Blood Cells Perc 0.7 % (0.0-0.2); Platelet Count Result 178 k/mm3 (150-375); Red Cell Distribution Width 14.1 % (11.5-14.5); White Blood Count 11.4 K/mm3 (4.5-10.0)
[2019-10-13 05:07] LABS: INR 1.2; Prothrombin Time 14.6 Seconds (11.1-14.7)
[2019-10-13 05:08] LABS: Partial Thromboplastin Time 36.5 SECONDS (22.3-36.8); Potassium 3.4 mmol/L (3.4-5.0)
[2019-10-13 05:12] LABS: Alanine Aminotransferase 50 U/L (4-50); Albumin Level 3.7 g/dL (3.5-5.1); Alkaline Phosphatase 124 U/L (38-126); Anion Gap 12 mmol/L (8-16); Aspartate Amino Transferase 76 U/L (17-59); Bilirubin,Total 0.8 mg/dL (0.2-1.3); Blood Urea Nitrogen 58 mg/dL (9-20); Calcium 8.3 mg/dL (8.4-10.2); Carbon Dioxide 23 mmol/L (22-30); Chloride 103 mmol/L (98-107); Estimated CRCL calculation 22 ml/min; Estimated Glomerular Filt Rate 19; Glucose 267 mg/dL (75-110); Sodium 138 mmol/L (137-145)
--- NOTE | 2019-10-13 05:12 | PC.NURSE ---
Patient starting to move at this time. EDP Speedy notified. Per SANTO Ruff verbal order read back give Versed 1mg IVP.
[2019-10-13 05:18] LABS: NT Pro B Type Natriuretic Pept 5920 PG/ML (5-100)
[2019-10-13 05:22] LABS: Troponin I 0.051 ng/mL (0.000-0.034)
[2019-10-13 05:24] LABS: Alveolar/Arterial O2 Gradient 606.6 mmHg; Base Excess ABG -7.9 mEq/l (+/-2.0); Carboxyhemoglobin 0.6 % THb (0-2.0); Fractional Inspired Oxygen 100 %; Methemoglobin ABG 0.3 %THb (0-1.5); Oxygen Content ABG 14.2 %vol (16.0-22.0); Oxygen Saturation ABG 91.8 % (95.0-100.0); Oxyhemoglobin 90.5 % THb (90.0-100.0); PCO2 ABG 38.2 mmHg (35.0-45.0); PO2 ABG 68.2 mmHg (80.0-100.0); PO2 FiO2 Ratio Arterial Blood 0.68 %; Reduced Hemoglobin 8.6 %THb (0-5.0); Total Hemoglobin 11.1 g/dL (12.0-18.0); pH ABG 7.292 (7.350-7.450)
[2019-10-13 05:25] LABS: Arterial Blood Gas PEEP 8 cmH2O; Arterial Blood Gas Tidal Volume 450 ml; Arterial Blood Gas Vent Mode CMV; Arterial Blood Gas Ventilator rate 18 /MIN; Device VENTILATOR; Site Drawn RIGHT BRACHIAL
--- NOTE | 2019-10-13 05:30 | ECG_ITS ---
Measurements Intervals [place] Rate: 105 P: WI: 366 QRS: 95 QRSD: 142 T: -81 QT: 317 QTc: 419 Interpretive Statements ELECTRONIC VENTRICULAR PACEMAKER VENTRICULAR COUPLET AND VENTRICULAR BIGEMINY BASELINE ARTIFACT- I, II, V1 NO FURTHER INTERPRETATION IS POSSIBLE ABNORMAL ECG Electronically Signed On 10-13-2019 7:54:05 CDT by Jaime Fuchs D.O.
--- NOTE | 2019-10-13 05:48 | PC.NURSE ---
Patient has received a total of 500mL normal saline at this time.
--- NOTE | 2019-10-13 05:57 | PM.IMHP ---
H&P: HPI History of Present Illness Date/Time: 10/13/19 05:57 Chief complaint: Coughing up blood Narrative: The patient was seen and examined well still down in the ER. Desean Montiel is a 84 year old male With a past medical history of coronary artery disease, CHF, obstructive sleep apnea and chronic kidney disease stage 4 presented to the ER via EMS due to coughing up bloody sputum for 24 hours. Patient has had weakness since last week after helping his into the house. He spent 3 days in bed after that. He has had no complaints of chest pain per family. upon EMS arrival the patient was noted to have low oxygen saturations down in the 70s. They have some passive breaths with BVM. Patient was awake and holding his emesis bag upon arrival to the ER but as he was transferred to the bed he lost consciousness, became cyanotic, and lost pulses. CPR initiated immediately. ER physician reports that at the time of intubation the patient was found have frothy bloody secretions. after 5 minutes of resuscitation efforts the patient regained perfusing circulation. He was able to respond appropriately to directions. The patient is nodding appropriately to answer questions. He is moving all extremities equally. When OG was placed the patient did not have any kayla hematemesis. his x-ray is consistent with pulmonary edema. The patient's blood pressures were initially stable after resuscitation efforts. However just before my arrival at the patient's bedside patient's blood pressures dropped to the 70s systolic. The ER physician was discussing placement of a central line with the patient and his . Both the patient and his have consented the central line placement. As I left the ER the ER physician was preparing for central line placement. source of information for HPI came from ER records and family report. at the time of this dictation the patient is still in the ER. he has not arrived in the ICU. As such his home med rec a has yet to be reconciled. Review of Systems Review of Systems: ROS unobtainable: Yes unobtainable due to endotracheal tube PMFSH Past Medical History Medical History Benign prostatic hyperplasia Chronic anemia Chronic kidney disease, stage 4 (severe) Baseline creatinine is around 2.40. Combined congestive systolic and diastolic heart failure With improved ejection fraction on echocardiogram in November 2014. Coronary artery disease With history of TX and multiple PCIs. Cyst of lateral meniscus DM w/o complication type II, uncontrolled Essential hypertension GI bleed (~04/2012) Due to internal hemorrhoid bleeding. Gout Hypothyroidism Male erectile disorder Mixed hyperlipidemia Obstructive sleep apnea on CPAP Paroxysmal atrial fibrillation Presence of biventricular cardiac pacemaker For symptomatic bradycardia. 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 Surgical History Surgical History History of appendectomy History of arthroplasty of right knee (~10/2011) History of cardiac catheterization With PTCA/ stent on multiple occasions. History of cardiac radiofrequency ablation History of cholecystectomy History of corneal transplant History of gastric bypass (~2006) History of surgery on arm Right arm ORIF after fracture. History of thoracotomy (~2008) Right-sided. Status post biventricular cardiac pacemaker insertion (~03/2012) For symptomatic bradycardia. Status post surgical removal of malignant neoplasm of skin Multiple excisions of squamous cell and basal cell carcinoma of the ears, face, and hand. Family History Family History Father Family history of elevated blood lipids
--- NOTE | 2019-10-13 06:29 | PC.NURSE ---
SANTO Speedy in room for central line insertion.
--- NOTE | 2019-10-13 07:09 | PC.NURSE ---
EDP was unable to start central line at this time. Speedy spoke to finishing manager transition teacher and patient will get a central line in the ICU.
[2019-10-13] MEDS: PHENYLEPHRINE HCL INJ 50 MG in DEXTROSE 5% IN WATER 250 ML/245 ML BAG 21 ML IV CONT (08:23)
[2019-10-13 08:45] LABS: Troponin I 0.361 ng/mL (0.000-0.034)
[2019-10-13 10:23] LABS: Alveolar/Arterial O2 Gradient 350.2 mmHg; Base Excess ABG -4.6 mEq/l (+/-2.0); Device VENTILATOR; Fractional Inspired Oxygen 70 %; HCO3 ABG 20.6 mEq/l (22.0-26.0); Oxygen Content ABG 16.5 %vol (16.0-22.0); Oxygen Saturation ABG 97.7 % (95.0-100.0); Oxyhemoglobin 96.2 % THb (90.0-100.0); PCO2 ABG 38.7 mmHg (35.0-45.0); PO2 ABG 107.3 mmHg (80.0-100.0); PO2 FiO2 Ratio Arterial Blood 1.53 %; Site Drawn RIGHT BRACHIAL; Total Hemoglobin 12.1 g/dL (12.0-18.0); pH ABG 7.345 (7.350-7.450)
[2019-10-13 10:24] LABS: Arterial Blood Gas PEEP 8 cmH2O; Arterial Blood Gas Tidal Volume 450 ml; Arterial Blood Gas Vent Mode CMV; Arterial Blood Gas Ventilator rate 18 /MIN
[2019-10-13] MEDS: levoFLOXacin 500 MG/D5W 100 ML 500 MG/100 ML BAG 100 MG IVPB (10:43)
[2019-10-13] MEDS: PHENYLEPHRINE HCL 10 MG/ML VIAL (10:57)
[2019-10-13 11:21] LABS: Lactic Acid 1.6 mmol/L (0.7-2.1)
[2019-10-13 11:37] LABS: Troponin I 0.576 ng/mL (0.000-0.034)
--- NOTE | 2019-10-13 11:44 | WPDPROCEDUR ---
Procedures Central Line Placement Right Femoral: Central Line Date: 10/13/19 Central Line Time: 09:44 Discussed w/ the patient/family/POA,the placement of a central venous catheter, including its clinical necessity/indication & associated potential risks, benifits and alternatives.: Yes The patient/family/POA understand(s) and acknowledge(s) the need to proceed with central venous catheter insertion as an important element of the patient's clinical management.: Yes Consent: Consent has already been obtained by emergency department physician. Patient family was called again from the ICU and confirmed consent. Time Out Performed: Yes Patient Position: trendelenburg Patient placed on monitor/pulse ox: Yes Provider Prep: mask, sterile gown, sterile gloves, Max. sterile barrier precautions, cap and hand hygiene with conventional soap/water or alcohol based hand rub Central line prep: 2% Chlorhexidine scrub Local anesthesia used: lidocaine 1% Amount of anesthesia used (ml): 5 Sterile US Technique with sterile gel/sterile probe covers: Yes Central line lumen inserted: triple Length (cm): 16 Depth of Insertion (cm): 16 Post procedure: sutured in place, good blood return, all ports aspirated, flushed, capped, tegaderm, antimicrobial disc and aseptic technique maintained throughout procedure Post procedure x-ray: other Patient tolerated procedure: well Complications: none Additional comments: Left IJ central venous placement is attempted. Vein was cannulated 3 times but unable to place the guidewire after 8-10 as guidewire cannot be advanced beyond that. Right IJ site was attempted by emergency department physician and accidentally punctured the carotid artery. Pressure was applied on the left IJ site. No bleeding was noted. No hematoma was noted. Chest x-ray will be obtained to rule out pneumothorax. A decision was made to put in a catheter in the femoral area and it was successfully done in the right femoral vein.
--- NOTE | 2019-10-13 11:48 | WPDCNINT ---
Assessment and Plan Assessment and plan (1) Cardiac arrest due to respiratory disorder: Code(s): J98.9 - Respiratory disorder, unspecified; I46.8 - Cardiac arrest due to other underlying condition Status: Acute Assessment and Plan: Likely as a result of respiratory arrest. It is unclear the underlying rhythm during cardiac arrest. ROCS were achieved after 5 minutes. He was awake and following command and did not require hypothermia protocol. (2) Coronary artery disease: Code(s): I25.10 - Atherosclerotic heart disease of [place] coronary artery without angina pectoris Status: Acute Assessment and Plan: He has extensive cardiac history with 17 stents. Troponin has been elevated here. Cardiology has been consulted for their inputs. (3) Pulmonary edema: Qualifiers: Chronicity: acute Qualified Code(s): J81.0 - Acute pulmonary edema Code(s): J81.1 - Chronic pulmonary edema Status: Acute Assessment and Plan: Bilateral airspace disease with pink frothy secretion with some red blood as well. Cannot be diuresed at this time because of shock status. (4) Acute exacerbation of CHF (congestive heart failure): Code(s): I50.9 - Heart failure, unspecified Status: Acute Assessment and Plan: Cardiology has been consulted. Strict intake output record and elevate. Command diurese now because of the shock status. (5) Chronic kidney disease, stage 3 (moderate): Code(s): N18.3 - Chronic kidney disease, stage 3 (moderate) Status: Acute Assessment and Plan: Monitor renal parameters. Involved nephrology service in case his renal parameters does not improve. Continue to monitor strict intake output record and Electrolytes. Continue and monitor electrolytes as well. (6) Pneumonia: Code(s): J18.9 - Pneumonia, unspecified organism Status: Acute Assessment and Plan: Bilateral airspace disease with hemoptysis. Continue empiric antibiotics with cefepime levofloxacin and vancomycin. Send sputum culture. Follow sputum and blood culture. Pulmonary has been consulted. Their recommendations are pending. Chest CT has been performed today. If his hemoptysis continues then can consider rheumatological and vascular Garry workup. (7) Acute respiratory failure: Code(s): J96.00 - Acute respiratory failure, unspecified whether with hypoxia or hypercapnia Status: Acute Assessment and Plan: Continue mechanical ventilation. His FiO2 is down to 50%. His PEEP is 8. Continue to wean FiO2 and PEEP if tolerated. Low tidal volume strategies to avoid barotrauma. Fentanyl and Versed for sedation. Daily sedation vacation trial. Target RASS for -1. Continue to monitor ABG and chest x-ray and adjust vent settings accordingly. (8) Shock: Code(s): R57.9 - Shock, unspecified Status: Acute Assessment and Plan: Currently requiring Levophed. Unclear mechanism likely septic versus cardiogenic versus positive pressure ventilation with low volume status wean Levophed if tolerated. Continue to trend lactic acid until it resolves. Echo and Doppler ultrasound has been ordered. If he has significant systolic dysfunction then may consider to add dobutamine. (9) Acute on chronic renal failure: Code(s): N17.9 - Acute kidney failure, unspecified; N18.9 - Chronic kidney disease, unspecified Status: Acute Assessment and Plan: Strict intake output record and daily weight. At baseline he follows with a child and family services worker. Unclear baseline creatinine. Creatinine today is 3.1. if his renal function does not improve then may need to involve Nephrology service for their inputs. Additional Plan SCD boot because of bleeding from respiratory trach with some blood-tinged secretion in the OG tube GI prophylaxis with PPI full code
--- NOTE | 2019-10-13 11:53 | PM.IMPN ---
Progress Note: A&P Assessment and Plan (1) Cardiac arrest due to respiratory disorder: Code(s): J98.9 - Respiratory disorder, unspecified; I46.8 - Cardiac arrest due to other underlying condition Status: Acute Assessment and Plan: cardiac arrest likely secondary to respiratory arrest. Given the patient's overall weakness for the last couple of days after exerting himself pushing his up wheelchair ramp wonder if the patient may not have had a cardiac event a couple of days ago? 10/13/19 11:53 patient is 84-year-old male with history of coronary artery disease and CHF apparently patient had been feeling tired and weak was having bloody streaks put and developed shortness of breath and hypoxia, EMS was called upon arrival patient was saturating 70%, patient was brought to the emergency depart while in the emergency department patient had a cardiac arrest and CPR with ACLS was started after 5 minutes patient had ROSC, and patient was intubated currently on vent unable to provide any review of symptoms, is being tested COVID-19. (2) Pulmonary edema: Qualifiers: Chronicity: acute Qualified Code(s): J81.0 - Acute pulmonary edema Code(s): J81.1 - Chronic pulmonary edema Status: Acute Assessment and Plan: The patient is been intubated and there was protected. The patient has not yet received Lasix as his pressures have now dropped. Patient may benefit from dobutamine will administration. (3) Elevated troponin: Code(s): R79.89 - Other specified abnormal findings of blood chemistry Status: Acute Assessment and Plan: Will trend serial troponins. Subjective Date/time seen: 10/13/19 11:53 patient is 84-year-old male with history of coronary artery disease and CHF apparently patient had been feeling tired and weak was having bloody streaks put and developed shortness of breath and hypoxia, EMS was called upon arrival patient was saturating 70%, patient was brought to the emergency depart while in the emergency department patient had a cardiac arrest and CPR with ACLS was started after 5 minutes patient had ROSC, and patient was intubated currently on vent unable to provide any review of symptoms, is being tested COVID-19. Review of Systems Review of Systems: ROS unobtainable: Yes unobtainable due to endotracheal tube Exam Narrative: Exam Narrative: patient was seen outside his room from glass door but was not examined as patient under investigation for COVID-19 Const: General: comfortable and no acute distress HENMT: Other: ET tube in place Neck: Other: no retraction Resp: Effort & Inspection: normal respiratory effort GI: Other: not distant Skin: General skin exam: normal color Neuro: Other: on vent and sedated Extrem: General: normal to inspection Psych: Other: on vent and sedated Objective Data Vital Signs Vital Signs: Vital Signs - 24 hr 10/13/19 04:40 10/13/19 04:51 10/13/19 05:00 Temperature 98.1 F Pulse Rate 113 H 91 77 Respiratory Rate 25 H 31 H Blood Pressure 116/54 L 77/30 L Pulse Oximetry 68 L 97 94 10/13/19 05:01 10/13/19 05:05 10/13/19 05:14 Temperature Pulse Rate 72 75 76 Respiratory Rate 34 H 32 H Blood Pressure 91/35 L Pulse Oximetry 96 91 93 10/13/19 05:15 10/13/19 05:16 10/13/19 05:21 Temperature Pulse Rate 80 71 70 Respiratory Rate 32 H 32 H 29 H Blood Pressure 102/42 L 86/34 L Pulse Oximetry 93 91 98 10/13/19 05:23 10/13/19 05:26 10/13/19 05:30 Temperature Pulse Rate 70 73 70 Respiratory Rate 25 H 31 H 30 H Blood Pressure 98/32 L Pulse Oximetry 97 98 10/13/19 05:31 10/13/19 05:36 10/13/19 05:37 Temperature Pulse Rate 80 79 Respiratory Rate 31 H 30 H 25 H Blood Pressure 94/33 L 104/54 L Pulse Oximetry 98 99 99 10/13/19 05:41 10/13/19 05:45 10/13/19 05:46 Temperature Pulse Rate 79 70 72 Respiratory Rate 24 H 10 L 29 H Blood Pres
--- NOTE | 2019-10-13 12:57 | PC.NURSE ---
Pt admitted to ICU 5 from ED, intubated and sedated prior to arrival, MD Beck aware and to bedside for eval.
--- NOTE | 2019-10-13 13:22 | WPDPROCEDUR ---
Procedures Central Line Placement Left Femoral: Central Line Date: 10/13/19 Central Line Time: 13:22 Discussed w/ the patient/family/POA,the placement of a central venous catheter, including its clinical necessity/indication & associated potential risks, benifits and alternatives.: Yes The patient/family/POA understand(s) and acknowledge(s) the need to proceed with central venous catheter insertion as an important element of the patient's clinical management.: Yes Time Out Performed: Yes Patient Position: trendelenburg Patient placed on monitor/pulse ox: Yes Provider Prep: mask, sterile gown, sterile gloves, Max. sterile barrier precautions, cap and hand hygiene with conventional soap/water or alcohol based hand rub Central line prep: 2% Chlorhexidine scrub Local anesthesia used: lidocaine 1% Amount of anesthesia used (ml): 5 Sterile US Technique with sterile gel/sterile probe covers: Yes Central line lumen inserted: triple Length (cm): 16 Depth of Insertion (cm): 16 Post procedure: sutured in place, good blood return, all ports aspirated, flushed, capped, tegaderm, antimicrobial disc and aseptic technique maintained throughout procedure Post procedure x-ray: other Patient tolerated procedure: well Complications: none Additional comments: His right femoral central line accidentally get dislodged during CT scan. Right subclavian central line placement is attempted. Vein was cannulated but could not advance the guidewire. Right femoral line was attempted again and vein was cannulated but could not thread in the catheter were the guidewire because of kinked guidewire. Left femoral vein central line was placed without any difficulty.
--- NOTE | 2019-10-13 15:51 | PM.CNCAR ---
Assessment and Plan Assessment and plan (1) Elevated troponin: Code(s): R79.89 - Other specified abnormal findings of blood chemistry Status: Acute Assessment and Plan: likely type 2 infarction rather than related to acute plaque rupture. Will repeat troponin in a.m. (2) Coronary artery disease: Code(s): I25.10 - Atherosclerotic heart disease of [place] coronary artery without angina pectoris Status: Acute Assessment and Plan: known history of multiple stents. Hold aspirin and Plavix because of hemoptysis. (3) Cardiac arrest due to respiratory disorder: Code(s): J98.9 - Respiratory disorder, unspecified; I46.8 - Cardiac arrest due to other underlying condition Status: Acute Assessment and Plan: ? Etiology. Probably PE a related. Will interrogate his Medtronic device. (4) Pulmonary edema: Qualifiers: Chronicity: acute Qualified Code(s): J81.0 - Acute pulmonary edema Code(s): J81.1 - Chronic pulmonary edema Status: Acute Assessment and Plan: COVID pending. 2D echocardiogram with Doppler will be ordered and reviewed. Continue pressor support for now and diuresis when able (5) Acute exacerbation of CHF (congestive heart failure): Code(s): I50.9 - Heart failure, unspecified Status: Acute Assessment and Plan: restart his carvedilol, furosemide, isosorbide when able. Currently in shock with Levophed being given. (6) Acute on chronic renal failure: Code(s): N17.9 - Acute kidney failure, unspecified; N18.9 - Chronic kidney disease, unspecified Status: Acute Assessment and Plan: Follow renal function (7) Shock: Code(s): R57.9 - Shock, unspecified Status: Acute Assessment and Plan: ? Etiology. Patient does not seem to be volume overloaded by examination. Given hemoptysis and hypotension, rule out PE. History of Present Illness History of Present Illness Consult date/time: 10/13/19 15:51 Requesting physician: Nallely Beck MD Consult reason: Other (Cardiac arrest) Reason For Visit: Coughing up blood Narrative: date of service 10/13/2019 reason for consultation: Cardiac arrest History: Patient is a 84-year-old male who is a patient of Dr. Saldivar who was admitted in August for what sounds to be heart failure exacerbation. He has a history of severe coronary disease, ischemic cardiomyopathy, diastolic heart failure, obstructive sleep apnea, chronic kidney disease, chronic anemia, diabetes who also has a Medtronic device who came to the hospital because of weakness and bloody sputum. Bloody sputum have been present for the previous 24 hours. He does have generalized weakness especially after helping his who had broken her hip recently. He had been in bed for previous several days. He was transferred to the bed while in the emergency department and suddenly lost consciousness and became cyanotic. Pulses were lost and CPR was initiated. He did have 5 minutes of resuscitation but then pulse was regained. He was intubated and responding to questions. chest x-ray is consistent with pulmonary edema. Blood pressures did drop and pressors were started. He is now more stable. He is under droplet precautions for rule out COVID. Currently intubated and sedated. There was no recent chest pain that is described or syncope, presyncope or significant edema. Review of Systems Review of Systems: All systems reviewed & are unremarkable except as noted in HPI and below Constitutional: Constitutional: Reports weakness Eyes: Eyes: Denies blurry vision ENT: Denies epistaxis Cardiovascular: Cardiovascular: Denies pedal edema Respiratory: Respiratory: Reports cough, Reports hemoptysis and Reports dyspnea Gastrointestinal: Gastrointestinal: Reports vomiting Genitourinary: Genitourinary: Denies dysuria Musculoskeletal: Musculoskeletal: Denies neck pain Integume
[2019-10-13] MEDS: NOREPINEPHRINE 8 MG/D5W 250 ML 8 MG/250 ML BAG 9.4 MG IV CONT (17:34)
--- NOTE | 2019-10-13 19:29 | PM.CNPUL ---
Assessment and Plan Assessment and plan (1) Acute hypoxemic respiratory failure: Code(s): J96.01 - Acute respiratory failure with hypoxia Status: Acute Assessment and Plan: Likely from bilateral pneumonia, probably aspiration in nature - broad spectrum antibiotics with Cefpime, Vancomcycin and Levaquin with pharmacy to dose - SARS-CoV-2 nasal swab sent - low tidal volume. Would recommend decreasing TV to 400, titrate oxygen to keep sats 92-96%. Plateau pressure target < 30 - consider starting Dexamethasone 6 mg daily and d/c if SARS-CoV-2 RT CR is negative (2) Pneumonia: Qualifiers: Pneumonia type: due to unspecified organism Laterality: bilateral Lung location: lower lobe of lung Qualified Code(s): J18.9 - Pneumonia, unspecified organism Code(s): J18.9 - Pneumonia, unspecified organism Status: Acute (3) Shock: Code(s): R57.9 - Shock, unspecified Status: Acute History of Present Illness History of Present Illness Consult date: 10/13/19 Chief complaint: Coughing up blood Narrative: 84 y/o male with history of diastolic CHF, severe CAD, CRI, anemia of chronic disease, hypothyroidism, DM, presents with acute hypoxemic respiratory failure and shock requiring vasopressor support. It's unclear but the hypoxemia may have lead to a cardiac arrest as he underwent CPR for 5 minutes. He is currently intubate sedated and mechanically ventilated with CMV 450/20/PEEP 8 and FiO2 weaned form 100% down to 50% rapidly. CXR shows bilateral scattered airspace disease which was also present on August 30 CXR from this year. Futher history is not available from family. BNP is > 5000 but this is unreliable in sever chronic kidney disease. HRCT chest shows bibasilar apirspace disease and significant consolidation of the LLL with mild pleural effusions. I question whether he aspirated. Review of Systems Review of Systems: All systems reviewed & are unremarkable except as noted in HPI and below PMFSH Past Medical History Medical History Benign prostatic hyperplasia Chronic anemia Chronic kidney disease, stage 4 (severe) Baseline creatinine is around 2.40. Combined congestive systolic and diastolic heart failure With improved ejection fraction on echocardiogram in November 2014. Coronary artery disease With history of IL and multiple PCIs. Cyst of lateral meniscus DM w/o complication type II, uncontrolled Essential hypertension GI bleed (~04/2012) Due to internal hemorrhoid bleeding. Gout Hypothyroidism Male erectile disorder Mixed hyperlipidemia Obstructive sleep apnea on CPAP Paroxysmal atrial fibrillation Presence of biventricular cardiac pacemaker For symptomatic bradycardia. 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 Surgical History Surgical History History of appendectomy History of arthroplasty of right knee (~10/2011) History of cardiac catheterization With PTCA/ stent on multiple occasions. History of cardiac radiofrequency ablation History of cholecystectomy History of corneal transplant History of gastric bypass (~2006) History of surgery on arm Right arm ORIF after fracture. History of thoracotomy (~2008) Right-sided. Status post biventricular cardiac pacemaker insertion (~03/2012) For symptomatic bradycardia. Status post surgical removal of malignant neoplasm of skin Multiple excisions of squamous cell and basal cell carcinoma of the ears, face, and hand. Family History Family History Father Family history of elevated blood lipids Family history of cardiovascular disease Sibling Family history of cardiovascular disease, Onset Age: 48 Other Fam
[2019-10-13] MEDS: DEXAMETHASONE SOD PHOS INJ 4 MG/ML VIAL 6 MG IV PUSH (20:35)
[2019-10-13] MEDS: CENTRAL LINE FLUSH 10 ML IV PUSH (21:54)
[2019-10-13 23:10] LABS: Glucose Point of Care 162 (65-105)
[2019-10-14] VITALS (28 sets, daily range): BP systolic 101–139; BP diastolic 52–103; PULSE 69–95; RESP 18–25; TEMP 36.2–36.9; O2SAT 92–97
--- NOTE | 2019-10-14 | ECHO_ITS ---
Patient Info Name: Desean Montiel Age: 84 years : 1935 Gender: Male Ht: 72 in Wt: 253 lbs BSA: 2.45 m2 HR: 59 bpm BP: 115 / 56 mmHg Heart Rhythm: Paced Technical Quality: Good Exam Date: 10/14/2019 1:25 PM Exam Location: [facility]monary Patient Status: Inpatient Admit Date: 10/13/2019 Staff Ordering Physician: Nallely Beck MD Assisted Living Coordinator: Yfn Yen RDCS Attending Provider: Lali Soriano DO Exam Type: CA echo doppler color flow Study Info Indications J96.01 - Acute respiratory failure with hypoxia Complete two-dimensional, color flow and Doppler transthoracic echocardiogram is performed. History/Risk Factors NSTEMI; CAD, respiratory failure, pulmonary edema, ICM, CKD4, DM2, Afib w/ PPM. Summary 1. Complete two-dimensional, color flow and Doppler transthoracic echocardiogram is performed. 2. Left ventricular chamber dimension is moderately enlarged. 3. Left ventricular systolic function is severely reduced, estimated at 20-25%. 4. There is moderately increased left ventricular wall thickness. 5. Left ventricular septal wall motion is abnormal with septal motion related to pacing. 6. The left ventricular diastolic function is grade II diastolic dysfunction. 7. Left atrial chamber dimension is mildly enlarged. 8. There is moderate aortic valve calcification. 9. The mitral valve has thickened leaflets and calcified annulus. 10. There is moderate mitral valve regurgitation. 11. Moderate pulmonary hypertension, estimated pulmonary arterial systolic pressure is 53 mmHg. 12. There is mild tricuspid valve regurgitation. 13. There is mild pulmonic regurgitation. Left Ventricle Left ventricular chamber dimension is moderately enlarged. Left ventricular systolic function is severely reduced, estimated at 20-25%. There is moderately increased left ventricular wall thickness. Left ventricular septal wall motion is abnormal with septal motion related to pacing. The left ventricular diastolic function is grade II diastolic dysfunction. Right Ventricle Right ventricular chamber dimension is normal. Right ventricular systolic function is normal. Left Atria Left atrial chamber dimension is mildly enlarged. Right Atria Right atrial chamber dimension is normal. Atrial Septum Intact interatrial septum visualized by color flow imaging. Aortic Valve The aortic valve is trileaflet. There is no aortic valve stenosis. There is trace aortic valve regurgitation. There is moderate aortic valve calcification. Pulmonic Valve The pulmonic valve is normal. There is no pulmonic valve stenosis. There is mild pulmonic regurgitation. Mitral Valve The mitral valve has thickened leaflets and calcified annulus. There is no mitral valve stenosis. There is moderate mitral valve regurgitation. Tricuspid Valve Moderate pulmonary hypertension, estimated pulmonary arterial systolic pressure is 53 mmHg. The tricuspid valve leaflets are normal. There is no significant tricuspid valve stenosis. There is mild tricuspid valve regurgitation. Pericardium/Pleural The pericardium appears normal. There is no pericardial effusion. Inferior Vena Cava Dilated inferior vena cava with <50% collapse upon inspiration consistent with elevated right atrial pressure, 15 mmHg. Aorta The aortic root size at the sinus of Valsalva is normal. The prox ascending aorta size is normal. There is mild aortic atherosclerosis. Tricuspid Valve
[2019-10-14 04:35] LABS: Alveolar/Arterial O2 Gradient 203.6 mmHg; Base Excess ABG -0.5 mEq/l (+/-2.0); Carboxyhemoglobin 0.3 % THb (0-2.0); Fractional Inspired Oxygen 45 %; HCO3 ABG 24.3 mEq/l (22.0-26.0); Methemoglobin ABG 0.3 %THb (0-1.5); Oxygen Content ABG 13.9 %vol (16.0-22.0); Oxygen Saturation ABG 94.2 % (95.0-100.0); Oxyhemoglobin 92.8 % THb (90.0-100.0); PCO2 ABG 40.7 mmHg (35.0-45.0); PO2 FiO2 Ratio Arterial Blood 1.58 %; Reduced Hemoglobin 6.6 %THb (0-5.0); Total Hemoglobin 10.6 g/dL (12.0-18.0); pH ABG 7.394 (7.350-7.450)
[2019-10-14 04:37] LABS: Arterial Blood Gas Vent Mode CMV; Arterial Blood Gas Ventilator rate 18 /MIN; Device VENTILATOR; Site Drawn RIGHT BRACHIAL
[2019-10-14 04:38] LABS: Arterial Blood Gas PEEP 8 cmH2O; Arterial Blood Gas Tidal Volume 450 ml
[2019-10-14] MEDS: CENTRAL LINE FLUSH 10 ML IV PUSH ×3 (05:04→20:43)
[2019-10-14 05:21] LABS: Hematocrit 29.5 % (42.0-52.0); Hemoglobin 9.4 g/dL (14.0-18.0); Mean Corpuscular HGB Conc 31.9 g/dl (32-36); Mean Corpuscular Hemoglobin 31.3 pg (26-34); Mean Corpuscular Volume 98.3 fl (80-100); Mean Platelet Volume 10.1 fl (7.4-10.4); Platelet Count Result 127 k/mm3 (150-375); White Blood Count 13.4 K/mm3 (4.5-10.0)
[2019-10-14 05:41] LABS: Lactic Acid Reflex 1.6 mmol/L (0.7-2.1)
[2019-10-14 05:51] LABS: Anion Gap 8 mmol/L (8-16); Blood Urea Nitrogen 70 mg/dL (9-20); Calcium 8.4 mg/dL (8.4-10.2); Carbon Dioxide 24 mmol/L (22-30); Chloride 102 mmol/L (98-107); Estimated CRCL calculation 20 ml/min; Estimated Glomerular Filt Rate 17; Glucose 175 mg/dL (75-110); Magnesium 2.2 mg/dL (1.6-2.3); Phosphorus 5.4 mg/dL (2.5-4.5); Potassium 4.8 mmol/L (3.4-5.0); Sodium 134 mmol/L (137-145)
[2019-10-14 06:00] LABS: Troponin I 0.308 ng/mL (0.000-0.034)
[2019-10-14] MEDS: DEXAMETHASONE SOD PHOS INJ 4 MG/ML VIAL 6 MG IV PUSH (09:28)
[2019-10-14] MEDS: levoFLOXacin 250 MG/D5W 50 ML 250 MG/50 ML BAG 50 MG IVPB (09:28)
--- NOTE | 2019-10-14 10:15 | PM.PNCARD ---
Progress Note: A&P Assessment and Plan (1) Elevated troponin: Code(s): R79.89 - Other specified abnormal findings of blood chemistry Status: Acute Assessment and Plan: likely type 2 infarction rather than related to acute plaque rupture. troponins are trending down (2) Coronary artery disease: Code(s): I25.10 - Atherosclerotic heart disease of [place] coronary artery without angina pectoris Status: Acute Assessment and Plan: known history of multiple stents. restart aspirin 81 mg p.o. daily the hold Plavix for now given hemoptysis (3) Cardiac arrest due to respiratory disorder: Code(s): J98.9 - Respiratory disorder, unspecified; I46.8 - Cardiac arrest due to other underlying condition Status: Acute Assessment and Plan: ? Etiology. (4) Pulmonary edema: Qualifiers: Chronicity: acute Qualified Code(s): J81.0 - Acute pulmonary edema Code(s): J81.1 - Chronic pulmonary edema Status: Acute Assessment and Plan: COVID pending. 2D echocardiogram with Doppler pending. Continue pressor support for now and diuresis when able (5) Acute exacerbation of CHF (congestive heart failure): Code(s): I50.9 - Heart failure, unspecified Status: Acute Assessment and Plan: restart his carvedilol, furosemide, isosorbide when able. Currently in shock with Levophed being given. (6) Acute on chronic renal failure: Code(s): N17.9 - Acute kidney failure, unspecified; N18.9 - Chronic kidney disease, unspecified Status: Acute Assessment and Plan: Follow renal function (7) Shock: Code(s): R57.9 - Shock, unspecified Status: Acute Assessment and Plan: ? Etiology. Patient does not seem to be volume overloaded by examination. Given hemoptysis and hypotension, rule out PE. Subjective Date/time seen: 10/14/19 10:15 Interval history: 84-year-old admitted for shortness of breath, hemoptysis. Status post arrest in ER Date of service 10/14/2019: Blood pressure is stable. Av paced rhythm. No acute issues overnight Review of Systems Review of Systems: ROS unobtainable: Yes unobtainable due to endotracheal tube Constitutional: Constitutional: Reports fatigue and Reports weakness Eyes: Eyes: Denies blurry vision ENT: Denies lip swelling, Denies epistaxis and Denies neck pain Cardiovascular: Cardiovascular: Denies pedal edema and Reports dyspnea Respiratory: Respiratory: Reports cough, Reports hemoptysis and Reports dyspnea Gastrointestinal: Gastrointestinal: Reports vomiting Genitourinary: Genitourinary: Denies dysuria Musculoskeletal: Musculoskeletal: Denies neck pain Integumentary/Breasts: Skin/Breast: Denies dry skin Neurologic: Denies behavioral changes and Reports weakness Psychiatric: Psychiatric: Denies behavioral changes Endocrine: Endocrine: Reports fatigue Hematologic/Lymphatic: Hematologic/Lymphatic: Reports easy bleeding Allergic/Immunologic: Allergic/Immunologic: Denies lip swelling Exam Narrative: Exam Narrative: Currently intubated and sedated. Const: General: comfortable HENMT: General nose exam: Normal nares present Neck: Neck: supple and no JVD Chest: Other: No chest wall deformities noted. Cardio: Rate: regular rate Other: Ectopy noted Skin: General skin exam: normal color Neuro: Motor exam (neuro): Normal motor muscle tone present throughout Other: patient is currently intubated and sedated Extrem: General: no edema Psych: Other: sedated Objective Data Vital Signs Vital Signs: Vital Signs - 24 hr 10/13/19 10:57 10/13/19 11:55 10/13/19 12:00 Temperature 36.3 C L Pulse Rate 82 69 Respiratory Rate 18 Blood Pressure 118/75 106/59 L Pulse Oximetry 100 10/13/19 14:00 10/13/19 14:45 10/13/19 14:51 Temperature Pulse Rate 70 70 Respiratory Rate 18 Blood Pressure 104/57 L Pulse Oximetry 100 100
[2019-10-14 11:39] LABS: SARS-CoV-2 RNA PCR Negative
--- NOTE | 2019-10-14 11:47 | WPDINTPN ---
Progress Note: A&P Assessment and Plan (1) Acute respiratory failure: Code(s): J96.00 - Acute respiratory failure, unspecified whether with hypoxia or hypercapnia Status: Acute Assessment and Plan: Continue mechanical ventilation. His FiO2 is down to 40%%. His PEEP is 8. Continue to wean FiO2 and PEEP if tolerated. Low tidal volume strategies to avoid barotrauma. Fentanyl and Versed for sedation. Daily sedation vacation trial. Target RASS for -1. Continue to monitor ABG and chest x-ray and adjust vent settings accordingly. (2) Pneumonia: Qualifiers: Pneumonia type: due to unspecified organism Laterality: bilateral Lung location: lower lobe of lung Qualified Code(s): J18.9 - Pneumonia, unspecified organism Code(s): J18.9 - Pneumonia, unspecified organism Status: Acute Assessment and Plan: Bilateral airspace disease with hemoptysis. Continue empiric antibiotics with cefepime levofloxacin and vancomycin. Follow sputum and blood culture. Pulmonary has been consulted. HRCT done and report pending but shows diffuse ground-glass opacities suggestive of pulmonary edema, left lower lobe consolidation/ atelectasis and left pleural effusion (3) Cardiac arrest due to respiratory disorder: Code(s): J98.9 - Respiratory disorder, unspecified; I46.8 - Cardiac arrest due to other underlying condition Status: Acute Assessment and Plan: Likely as a result of respiratory arrest. It is unclear the underlying rhythm during cardiac arrest. ROCS were achieved after 5 minutes. He was awake and following command and did not require hypothermia protocol. echocardiogram is ordered and pending (4) Coronary artery disease: Code(s): I25.10 - Atherosclerotic heart disease of [place] coronary artery without angina pectoris Status: Acute Assessment and Plan: He has extensive cardiac history with 17 stents. Troponin has been elevated here. Cardiology has been consulted and recommend conservative management at this time (5) Pulmonary edema: Qualifiers: Chronicity: acute Qualified Code(s): J81.0 - Acute pulmonary edema Code(s): J81.1 - Chronic pulmonary edema Status: Acute Assessment and Plan: Bilateral airspace disease with pink frothy secretion with some red blood as well. will give Lasix 80 mg IV x1 (6) Acute exacerbation of CHF (congestive heart failure): Code(s): I50.9 - Heart failure, unspecified Status: Acute Assessment and Plan: Cardiology has been consulted. Strict intake output record and elevate. start Lasix today (7) Chronic kidney disease, stage 3 (moderate): Code(s): N18.3 - Chronic kidney disease, stage 3 (moderate) Status: Acute Assessment and Plan: continue to monitor urine output, creatinine and electrolytes. will consult nephrology service in case his renal parameters does not improve. Lasix 80 mg IV x1 today for pulmonary edema (8) Shock: Code(s): R57.9 - Shock, unspecified Status: Acute Assessment and Plan: improved and patient is off of vasopressors. likely septic and cardiogenic in nature monitor echocardiogram pending (9) Acute on chronic renal failure: Code(s): N17.9 - Acute kidney failure, unspecified; N18.9 - Chronic kidney disease, unspecified Status: Acute Assessment and Plan: see above (10) Type 2 diabetes mellitus: Code(s): E11.9 - Type 2 diabetes mellitus without complications Status: Acute Assessment and Plan: add sliding scale insulin (11) Hemoptysis: Code(s): R04.2 - Hemoptysis Status: Acute Assessment and Plan: patient presented with hemoptysis which has since improved. Today the ET suction is not blood tinged. His coags are normal. CT shows bilateral interstitial infiltrate and left lower lobe pneumonia. Pulmonar
[2019-10-14] MEDS: FUROSEMIDE INJ 100 MG/10 ML VIAL 80 MG IV PUSH (12:17)
[2019-10-14 12:30] LABS: Glucose Point of Care 180 (65-105)
--- NOTE | 2019-10-14 14:15 | PM.PNPUL ---
Progress Note: A&P Assessment and Plan (1) Acute hypoxemic respiratory failure: Code(s): J96.01 - Acute respiratory failure with hypoxia Status: Acute Assessment and Plan: Likely from bilateral pneumonia, probably aspiration in nature - broad spectrum antibiotics with Cefpime, Vancomcycin and Levaquin. - SARS-CoV-2 nasal swab negative - low tidal volume. TV 400, titrate oxygen to keep sats 92-96%. Plateau pressure target < 30 (2) Pneumonia: Qualifiers: Laterality: bilateral Lung location: lower lobe of lung Pneumonia type: due to unspecified organism Qualified Code(s): J18.9 - Pneumonia, unspecified organism Code(s): J18.9 - Pneumonia, unspecified organism Status: Acute (3) Shock: Code(s): R57.9 - Shock, unspecified Status: Acute Subjective Date/time seen: 10/14/19 14:15 This 84 yo man is seen in [facility] for acute hypoxemic respiratory failure. he presented with shock requiring vasopressor support. It's unclear but the hypoxemia may have lead to a cardiac arrest as he underwent CPR for 5 minutes PMH: dCHF, severe CAD, CRI, anemia of chronic disease, hypothyroidism, DM, CMV 450/20/PEEP 8 and FiO2 weaned fromorm 100% down to 50% rapidly. CXR shows bilateral scattered airspace disease which was also present on August 30 CXR from this year. Futher history is not available from family. BNP is > 5000 but this is unreliable in sever chronic kidney disease. HRCT: bibasilar airspace disease and significant consolidation of the LLL with mild pleural effusions. Possible aspiration. Review of Systems Review of Systems: All systems reviewed & are unremarkable except as noted in HPI and below Exam Const: General: no acute distress Other: intubated and mechanically ventilated Neck: Neck: supple and no JVD Resp: Auscultation: crackles (at bases ) bilateral Cardio: Rate: regular rate Rhythm: regular rhythm Heart sounds: no murmurs GI: Auscultation: normal bowel sounds Skin: General skin exam: normal color and no rashes or lesions noted Extrem: General: normal to inspection, no edema and no pedal edema Objective Data Vital Signs Vital Signs: Vital Signs - 24 hr 10/13/19 14:45 10/13/19 14:51 10/13/19 16:00 Temperature 36.8 C Pulse Rate 70 74 Respiratory Rate 18 Blood Pressure 107/58 L Pulse Oximetry 100 100 100 10/13/19 16:18 10/13/19 17:47 10/13/19 20:00 Temperature 36.6 C Pulse Rate 74 71 70 Respiratory Rate 18 18 Blood Pressure 103/69 107/59 L Pulse Oximetry 100 100 97 10/13/19 20:31 10/13/19 20:32 10/13/19 20:42 Temperature Pulse Rate 72 73 73 Respiratory Rate 18 18 18 Blood Pressure Pulse Oximetry 10/13/19 21:06 10/13/19 22:00 10/13/19 22:24 Temperature Pulse Rate 70 70 70 Respiratory Rate 18 Blood Pressure 124/56 L 124/56 L Pulse Oximetry 98 97 10/13/19 23:05 10/13/19 23:06 10/13/19 23:20 Temperature Pulse Rate 71 69 70 Respiratory Rate 18 18 18 Blood Pressure Pulse Oximetry 97 10/13/19 23:54 10/14/19 00:00 10/14/19 02:00 Temperature Pulse Rate 70 70 91 Respiratory Rate 25 H 18 Blood Pressure 139/60 130/103 H Pulse Oximetry 97 97 94 10/14/19 02:07 10/14/19 02:17 10/14/19 03:35 Temperature Pulse Rate 73 71 70 Respiratory Rate 22 H 19 18 Blood Pressure Pulse Oximetry 97 10/14/19 04:00 10/14/19 04:33 10/14/19 05:02 Temperature 36.9 C Pulse Rate 70 70 70 Respiratory Rate 18 18 Blood Pressure 104/55 L Pulse Oximetry 95 95 10/14/19 05:03 10/14/19 06:00 10/14/19 08:00 Temperature 36.6 C Pulse Rate 70 70 71 Respiratory Rate 19 18 20 Blood Pressure 102/53 L 121/70 Pulse Oximetry 93 94 10/14/19 10:00 10/14/19 10:08 10/14/19 12:00 Temperature 36.6 C Pulse Rate 69 69 71 Respiratory Rate 18 18 Blood Pressure 101/52 L 115/69 Pulse Oximetry 95 92 93 Intake/Output Intake/Output: Intake & Output 10/11/19 10/12/19 09/0
--- NOTE | 2019-10-14 16:14 | PM.IMPN ---
Progress Note: A&P Assessment and Plan (1) Cardiac arrest due to respiratory disorder: Code(s): J98.9 - Respiratory disorder, unspecified; I46.8 - Cardiac arrest due to other underlying condition Status: Acute Assessment and Plan: cardiac arrest likely secondary to respiratory arrest. Given the patient's overall weakness for the last couple of days after exerting himself pushing his up wheelchair ramp wonder if the patient may not have had a cardiac event a couple of days ago? 10/14/19 16:14 patient is 84-year-old male with history of coronary artery disease and CHF apparently patient had been feeling tired and weak was having bloody streaks put and developed shortness of breath and hypoxia, EMS was called upon arrival patient was saturating 70%, patient was brought to the emergency depart while in the emergency department patient had a cardiac arrest and CPR with ACLS was started after 5 minutes patient had ROSC, and patient was intubated, respiratory arrest secondary to aspiration pneumoniac being treated with cefepime Levaquin and vancomycin, patient seen by project technician, patient with elevated tropes patient seen by pest locator suspect type 2 medical infarcts secondary to pneumonia and stress unlikely acute coronary syndrome, patient seen managed tank filler and appreciate, currently on vent unable to provide any review of symptoms, is being tested COVID-19 and pending. (2) Pulmonary edema: Qualifiers: Chronicity: acute Qualified Code(s): J81.0 - Acute pulmonary edema Code(s): J81.1 - Chronic pulmonary edema Status: Acute Assessment and Plan: The patient is been intubated and there was protected. The patient has not yet received Lasix as his pressures have now dropped. Patient may benefit from dobutamine will administration. (3) Elevated troponin: Code(s): R79.89 - Other specified abnormal findings of blood chemistry Status: Acute Assessment and Plan: Will trend serial troponins. Subjective Date/time seen: 10/14/19 16:14 patient is 84-year-old male with history of coronary artery disease and CHF apparently patient had been feeling tired and weak was having bloody streaks put and developed shortness of breath and hypoxia, EMS was called upon arrival patient was saturating 70%, patient was brought to the emergency depart while in the emergency department patient had a cardiac arrest and CPR with ACLS was started after 5 minutes patient had ROSC, and patient was intubated, respiratory arrest secondary to aspiration pneumoniac being treated with cefepime Levaquin and vancomycin, patient seen by project technician, patient with elevated tropes patient seen by pest locator suspect type 2 medical infarcts secondary to pneumonia and stress unlikely acute coronary syndrome, patient seen managed tank filler and appreciate, currently on vent unable to provide any review of symptoms, is being tested COVID-19 and pending. Review of Systems Review of Systems: ROS unobtainable: Yes unobtainable due to endotracheal tube Exam Narrative: Exam Narrative: patient was seen outside his room from glass door but was not examined as patient under investigation for COVID-19 Const: General: comfortable and no acute distress HENMT: Other: ET tube in place Neck: Other: no retraction Resp: Effort & Inspection: normal respiratory effort GI: Other: not distant Skin: General skin exam: normal color Neuro: Other: on vent and sedated Extrem: General: normal to inspection Psych: Other: on vent and sedated Objective Data Vital Signs Vital Signs: Vital Signs - 24 hr 10/13/19 16:18 10/13/19 17:47 10/13/19 20:00 Temperature 97.9 F Pulse Rate 74 71 70 Respiratory Rate 18 18 Blood Pressure 103/69 107/59 L Pulse Oximetry 100 100 97 10/13/19 20:31 10/13/19 20:32 10/13/19 20:42 Temperature Pulse Rate 72 73 73 Respiratory Rate 18
[2019-10-14 17:58] LABS: Glucose Point of Care 198 (65-105)
[2019-10-14 23:29] LABS: Glucose Point of Care 192 (65-105)
[2019-10-15] VITALS (30 sets, daily range): BP systolic 97–158; BP diastolic 56–76; PULSE 70–93; RESP 13–22; TEMP 36.4–36.8; O2SAT 96–99; BMI 34.4
[2019-10-15 04:19] LABS: Hematocrit 27.7 % (42.0-52.0); Mean Corpuscular HGB Conc 32.5 g/dl (32-36); Mean Corpuscular Hemoglobin 31.5 pg (26-34); Mean Corpuscular Volume 96.9 fl (80-100); Mean Platelet Volume 10.5 fl (7.4-10.4); Platelet Count Result 128 k/mm3 (150-375); Red Blood Count 2.86 M/mm3 (4.6-6.20); Red Cell Distribution Width 13.8 % (11.5-14.5); White Blood Count 12.9 K/mm3 (4.5-10.0)
[2019-10-15 04:34] LABS: Lactic Acid Reflex 1.4 mmol/L (0.7-2.1)
[2019-10-15 04:36] LABS: Anion Gap 10 mmol/L (8-16); Blood Urea Nitrogen 89 mg/dL (9-20); Calcium 8.5 mg/dL (8.4-10.2); Carbon Dioxide 24 mmol/L (22-30); Chloride 99 mmol/L (98-107); Estimated CRCL calculation 20 ml/min; Estimated Glomerular Filt Rate 18; Glucose 200 mg/dL (75-110); Magnesium 2.3 mg/dL (1.6-2.3); Phosphorus 5.9 mg/dL (2.5-4.5); Potassium 4.6 mmol/L (3.4-5.0); Sodium 133 mmol/L (137-145)
[2019-10-15 04:56] LABS: Alveolar/Arterial O2 Gradient 166.8 mmHg; Base Excess ABG -4.2 mEq/l (+/-2.0); Carboxyhemoglobin 0.3 % THb (0-2.0); Fractional Inspired Oxygen 40 %; HCO3 ABG 20.2 mEq/l (22.0-26.0); Methemoglobin ABG 0.3 %THb (0-1.5); Oxygen Content ABG 14.3 %vol (16.0-22.0); Oxygen Saturation ABG 95.6 % (95.0-100.0); Oxyhemoglobin 93.6 % THb (90.0-100.0); PCO2 ABG 34.5 mmHg (35.0-45.0); PO2 ABG 78.7 mmHg (80.0-100.0); PO2 FiO2 Ratio Arterial Blood 1.97 %; Reduced Hemoglobin 5.8 %THb (0-5.0); Total Hemoglobin 10.8 g/dL (12.0-18.0); pH ABG 7.385 (7.350-7.450)
[2019-10-15 04:58] LABS: Device VENTILATOR; Modified Allen's Test Pass; Site Drawn RIGHT RADIAL
[2019-10-15 04:59] LABS: Arterial Blood Gas PEEP 8 cmH2O; Arterial Blood Gas Tidal Volume 450 ml; Arterial Blood Gas Vent Mode CMV; Arterial Blood Gas Ventilator rate 18 /MIN
[2019-10-15] MEDS: CENTRAL LINE FLUSH 10 ML IV PUSH ×4 (05:16→20:17)
--- NOTE | 2019-10-15 08:57 | PM.CNNEP ---
Assessment and Plan Assessment and plan (1) IMER (acute kidney injury): Code(s): N17.9 - Acute kidney failure, unspecified Status: Acute Assessment and Plan: multifactorial ATN due to: - cardiac arrest - respiratory arrest - hemodynamic instability (shock) - acute infection (pneumonia?) no critical electrolytes at this time volume status a bit of an issue - still making urine; ok to use diuretics PRN follow repeat labs and UOP (2) Chronic kidney disease, stage 4 (severe): Code(s): N18.4 - Chronic kidney disease, stage 4 (severe) Status: Chronic Assessment and Plan: baseline creatinine ~ 2.0 - 2.5mg/dl since as far back as 2017 more recently, 2.4mg/dl as of August 2019 due to DM, HTN, ANTHONY, vascular disease and likely chronic prerenal azotemia from diuretics (3) Acute hypoxemic respiratory failure: Code(s): J96.01 - Acute respiratory failure with hypoxia Status: Acute Assessment and Plan: due to pneumonia +/- pulmonary edema CT of chest results noted Pulmonary following on antibiotics COVID-19 ruled out PRN diuretics to facilitate diuresis (4) Cardiac arrest due to respiratory disorder: Code(s): J98.9 - Respiratory disorder, unspecified; I46.8 - Cardiac arrest due to other underlying condition Status: Acute Assessment and Plan: presumably potentiated by respiratory failure ROSC after ~ 5 minutes continue supportive therapy (5) Hemoptysis: Code(s): R04.2 - Hemoptysis Status: Acute Assessment and Plan: due to edema and pneumonia previous serological testing for CKD negative however, consider re-checking given presentation (hemoptysis + IMER...etc) appears to be clearing Will continue to follow. History of Present Illness Reason for Consult Consult date: 10/15/19 Reason for consult: acute renal failure (on chronic kidney disease) Chief Complaint Chief complaint: Coughing up blood History of Present Illness Narrative: Most of the information I have obtained is from review of the electronic medical record as the patient is currently intubated and unable to provide me with much history. The patient is a 84 year old male with a past medical history as noted below who presented to [facility] ER with complaints of coughing up bloody sputum/hemoptysis. Initially, the patient had reported increased fatigue for last few days after doing some housework. He apparently rest in bed for last few days because of these symptoms. However, as it seemed that things are not improving, his family called EMS for further evaluation. Upon arrival by EMS, they found that he was quite hypoxic and reportedly had O2 saturations of 70% on room air. He was placed on supplemental oxygen and subsequently transferred to the emergency room for further evaluation and therapy. On arrival to the ER, he apparently was somewhat nauseated and when he was transferred to a bed in the emergency room he apparently lost consciousness and was reportedly cyanotic and pulseless. CPR/ACLS protocol was initiated and return of circulation was achieved after approximately 5 minutes. During this, the ER physician noted frothy bloody secretions at the time of intubation. he appeared to be neurologically intact following a cardiac arrest but his blood pressure dropped to the 70 systolic requiring central line placement and initiation of vasopressor therapy. He was subsequent transferred to the intensive care unit for further therapy. Since his admission to the ICU, he has been weaned off vasopressor therapy with relative stability in his hemodynamics. His chest x-ray was somewhat consistent with pulmonary edema and he received IV diuretic therapy for this issue. Pulmonary was consulted given the a for mentioned hemoptysis and high-resolution CT scan of his chest was done with results as outlined below. He wa
--- NOTE | 2019-10-15 09:00 | WPDINTPN ---
Progress Note: A&P Assessment and Plan (1) Acute respiratory failure: Code(s): J96.00 - Acute respiratory failure, unspecified whether with hypoxia or hypercapnia Status: Acute Assessment and Plan: Continue mechanical ventilation. His FiO2 is down to 40%%. His PEEP is 8. I will decrease his PEEP to 5 will attempt SBT today but I am not sure if he is ready for extubation as he needs more diuresis. HisS chest x-ray still shows significant pulmonary edema Fentanyl and Versed for sedation. Daily sedation vacation trial. Target RASS for -1. Continue to monitor ABG and chest x-ray and adjust vent settings accordingly. (2) Pneumonia: Qualifiers: Pneumonia type: due to unspecified organism Laterality: bilateral Lung location: lower lobe of lung Qualified Code(s): J18.9 - Pneumonia, unspecified organism Code(s): J18.9 - Pneumonia, unspecified organism Status: Acute Assessment and Plan: Bilateral airspace disease with hemoptysis. Continue empiric antibiotics with cefepime levofloxacin and vancomycin. Follow sputum and blood culture which are negative as of now Pulmonary has been consulted. HRCT done and report pending but shows diffuse ground-glass opacities suggestive of pulmonary edema, left lower lobe consolidation/ atelectasis and left pleural effusion (3) Shock: Code(s): R57.9 - Shock, unspecified Status: Acute Assessment and Plan: improved and patient is off of vasopressors. likely septic and cardiogenic in nature monitor echocardiogram reviewed (4) Cardiac arrest due to respiratory disorder: Code(s): J98.9 - Respiratory disorder, unspecified; I46.8 - Cardiac arrest due to other underlying condition Status: Acute Assessment and Plan: Likely as a result of respiratory arrest. It is unclear the underlying rhythm during cardiac arrest. ROCS were achieved after 5 minutes. He was awake and following command and did not require hypothermia protocol. (5) Coronary artery disease: Code(s): I25.10 - Atherosclerotic heart disease of [place] coronary artery without angina pectoris Status: Acute Assessment and Plan: He has extensive cardiac history with 17 stents. Troponin has been elevated here. Cardiology has been consulted and recommend conservative management at this time (6) Pulmonary edema: Qualifiers: Chronicity: acute Qualified Code(s): J81.0 - Acute pulmonary edema Code(s): J81.1 - Chronic pulmonary edema Status: Acute Assessment and Plan: Bilateral airspace disease with pink frothy secretion with some red blood as well. will give Lasix again today (7) Acute exacerbation of CHF (congestive heart failure): Code(s): I50.9 - Heart failure, unspecified Status: Acute Assessment and Plan: ECHO 10/13 shows moderate pulmonary hypertension and both systolic and diastolic congestive heart failure with EF of 20-25%. I will start patient on low-dose dobutamine infusion to see if that helps with diuresis Summary 1. Complete two-dimensional, color flow and Doppler transthoracic echocardiogram is performed. 2. Left ventricular chamber dimension is moderately enlarged. 3. Left ventricular systolic function is severely reduced, estimated at 20-25%. 4. There is moderately increased left ventricular wall thickness. 5. Left ventricular septal wall motion is abnormal with septal motion related to pacing. 6. The left ventricular diastolic function is grade II diastolic dysfunction. 7. Left atrial chamber dimension is mildly enlarged. 8. There is moderate aortic valve calcification. 9. The mitral valve has thickened leaflets and calcified annulus. 10. There is moderate mitral valve regurgitation. 11. Moderate pulmonary hypertension, estimated pulmonary arterial systolic pressure is 53 mmHg. 12. There is mild tricuspid valve reg
[2019-10-15] MEDS: levoFLOXacin 250 MG/D5W 50 ML 250 MG/50 ML BAG 50 MG IVPB (09:15)
[2019-10-15] MEDS: ASPIRIN 81 MG ENTERIC TABLET PO (09:16)
[2019-10-15] MEDS: FUROSEMIDE INJ 100 MG/10 ML VIAL 80 MG IV PUSH ×2 (09:16→16:15)
--- NOTE | 2019-10-15 09:52 | WPDCDIQUERY2 ---
CDI Query Clarification Request - Shock has been documented by spacer type bar and segment - No mention of shock by hospitalist - Pt received Levophed gtt on 10/12 and Phenylephrine gtt on 10/12. Please clarify if shock was ruled in or ruled out. Also if ruled in, please specify type of shock: septic, cardiogenic, other, unable to determine. <Bhavna Auguste RN - Last Filed: 10/16/19 07:15> Provider Comments CARDIOGENIC SHOCK <Lili Narvaez MD - Last Filed: 11/03/19 18:07>
[2019-10-15] MEDS: DOBUTamine 250 MG/D5W 250 ML 250 MG/250 ML BAG 17.3 MG IV CONT ×2 (10:23→23:48)
--- NOTE | 2019-10-15 12:25 | PM.PNCARD ---
Progress Note: A&P Assessment and Plan (1) Elevated troponin: Code(s): R79.89 - Other specified abnormal findings of blood chemistry Status: Acute Assessment and Plan: thought most likely type 2 infarction rather than related to acute plaque rupture. continue supportive care. Known underlying CAD. (2) Coronary artery disease: Code(s): I25.10 - Atherosclerotic heart disease of [place] coronary artery without angina pectoris Status: Acute Assessment and Plan: known history of multiple stents. Continue aspirin 81 mg p.o. daily the hold Plavix for now given hemoptysis (3) Cardiac arrest due to respiratory disorder: Code(s): J98.9 - Respiratory disorder, unspecified; I46.8 - Cardiac arrest due to other underlying condition Status: Acute Assessment and Plan: ? Etiology. most likely respiratory. still blood-tinged sputum in OG. Per Critical Care. Patient remains critically ill. Prognosis guarded. (4) Pulmonary edema: Qualifiers: Chronicity: acute Qualified Code(s): J81.0 - Acute pulmonary edema Code(s): J81.1 - Chronic pulmonary edema Status: Acute Assessment and Plan: COVID Negative. 2D echocardiogram with Doppler pending. Continue pressor support for now and diuresis when able (5) Acute exacerbation of CHF (congestive heart failure): Code(s): I50.9 - Heart failure, unspecified Status: Acute Assessment and Plan: resume carvedilol, IV furosemide increased to 80 mg twice daily. isosorbide when able. Currently in shock with Levophed being given. on dobutamine for management of heart failure, declining urine output, worsening renal failure. Monitor for tachyarrhythmias on dobutamine. Monitor and replete electrolytes as appropriate. (6) Acute on chronic renal failure: Code(s): N17.9 - Acute kidney failure, unspecified; N18.9 - Chronic kidney disease, unspecified Status: Acute Assessment and Plan: Worsening renal function, BUN 89, creatinine 3.3 today. as above. (7) Shock: Code(s): R57.9 - Shock, unspecified Status: Acute Assessment and Plan: As above. Dexamethasone discontinued due to negative COVID. Monitor hemodynamic status with diuresis very closely. Check chest x-ray in a.m.. Chest x-ray today with pulmonary vascular congestion. Subjective Date/time seen: Date of service:10/15/19 12:25 Interval history: 84-year-old admitted for shortness of breath, hemoptysis , CHF. Status post arrest in ER Blood pressure is stable. Av paced rhythm. No acute issues overnight. patient awake on ventilator this morning. Started on dobutamine 2.5 mcg/ kg/minute this morning by Critical Care due to declining urine output and worsening kidney failure. Review of Systems Review of Systems: All systems reviewed & are unremarkable except as noted in HPI and below ROS unobtainable: Yes unobtainable due to endotracheal tube Constitutional: Constitutional: Reports fatigue and Reports weakness Eyes: Eyes: Denies blurry vision ENT: Denies lip swelling, Denies epistaxis and Denies neck pain Cardiovascular: Cardiovascular: Denies pedal edema and Reports dyspnea Respiratory: Respiratory: Reports cough, Reports hemoptysis and Reports dyspnea Gastrointestinal: Gastrointestinal: Reports vomiting Genitourinary: Genitourinary: Denies dysuria Musculoskeletal: Musculoskeletal: Denies neck pain Integumentary/Breasts: Skin/Breast: Denies dry skin Neurologic: Denies behavioral changes and Reports weakness Psychiatric: Psychiatric: Denies behavioral changes Endocrine: Endocrine: Reports fatigue Hematologic/Lymphatic: Hematologic/Lymphatic: Reports easy bleeding Allergic/Immunologic: Allergic/Immunologic: Denies lip swelling Exam Narrative: Exam Narrative: Currently intubated and sedated. eyes open, no apparent distress. Nodding head to questions. Const: Genera
[2019-10-15 12:33] LABS: Glucose Point of Care 181 (65-105)
--- NOTE | 2019-10-15 14:02 | PM.IMPN ---
Progress Note: A&P Assessment and Plan (1) Acute hypoxemic respiratory failure: Code(s): J96.01 - Acute respiratory failure with hypoxia Status: Acute Assessment and Plan: Likely due to pulmonary edema and PNA. He remains intubated. (2) Shock: Code(s): R57.9 - Shock, unspecified Status: Acute Assessment and Plan: Possible cardiogenic and septic. On dobutamine. On wide spectrum antibiotics for possible PNA. (3) Acute exacerbation of CHF (congestive heart failure): Code(s): I50.9 - Heart failure, unspecified Status: Acute Assessment and Plan: Ef noted to be around 20-25% systolic dysfunction. On lasix and was also started on dobutamine. (4) Pulmonary edema: Qualifiers: Chronicity: acute Qualified Code(s): J81.0 - Acute pulmonary edema Code(s): J81.1 - Chronic pulmonary edema Status: Acute Assessment and Plan: As detailed above. (5) Hemoptysis: Code(s): R04.2 - Hemoptysis Status: Acute Assessment and Plan: This problem seems to be resolved now. Continue to monitor. (6) Suspected COVID-19 virus infection: Code(s): Z20.828 - Contact with and (suspected) exposure to other viral communicable diseases Status: Acute Assessment and Plan: Negative. (7) Pneumonia: Qualifiers: Pneumonia type: due to unspecified organism Laterality: bilateral Lung location: lower lobe of lung Qualified Code(s): J18.9 - Pneumonia, unspecified organism Code(s): J18.9 - Pneumonia, unspecified organism Status: Acute Assessment and Plan: On levofloxacin, cefepime and vancomycin. Subjective Date/time seen: Pt seen and examined, intubated, sedated. 10/15/19 14:02 Exam Const: Other: Intubated and sedated. Neck: Neck: supple Resp: Auscultation: rales Cardio: Other: Paced rhythm. GI: Auscultation: normal bowel sounds Urinary Catheter: Urinary Catheter: patent and draining Neuro: Other: Sedated Extrem: Other: Non pitting edema in lower extremities. Objective Data Vital Signs Vital Signs: Vital Signs - 24 hr 10/14/19 14:27 10/14/19 14:55 10/14/19 15:05 Temperature Pulse Rate 70 70 69 Respiratory Rate 18 18 Blood Pressure Pulse Oximetry 95 10/14/19 16:00 10/14/19 17:10 10/14/19 18:00 Temperature 97.6 F Pulse Rate 70 72 73 Respiratory Rate 18 18 Blood Pressure 115/66 106/76 Pulse Oximetry 95 95 95 10/14/19 20:00 10/14/19 20:40 10/14/19 22:00 Temperature 97.2 F L Pulse Rate 80 81 80 Respiratory Rate 18 18 Blood Pressure 119/63 114/55 L Pulse Oximetry 95 96 96 10/14/19 23:19 10/14/19 23:20 10/14/19 23:30 Temperature Pulse Rate 71 79 80 Respiratory Rate 18 18 Blood Pressure Pulse Oximetry 97 10/15/19 00:00 10/15/19 01:09 10/15/19 01:15 Temperature 97.6 F Pulse Rate 80 76 76 Respiratory Rate 18 18 18 Blood Pressure 117/56 L Pulse Oximetry 96 10/15/19 02:00 10/15/19 03:56 10/15/19 04:00 Temperature 97.9 F Pulse Rate 74 74 77 Respiratory Rate 18 18 18 Blood Pressure 97/61 L 115/59 L Pulse Oximetry 96 96 96 10/15/19 04:19 10/15/19 05:00 10/15/19 06:00 Temperature Pulse Rate 71 70 78 Respiratory Rate 20 18 Blood Pressure 111/59 L Pulse Oximetry 96 96 10/15/19 06:02 10/15/19 06:03 10/15/19 08:00 Temperature Pulse Rate 80 80 70 Respiratory Rate 18 18 18 Blood Pressure Pulse Oximetry 99 10/15/19 08:22 10/15/19 10:00 10/15/19 10:10 Temperature Pulse Rate 70 70 70 Respiratory Rate 18 Blood Pressure 114/63 Pulse Oximetry 96 98 99 10/15/19 11:55 10/15/19 12:00 Temperature 97.6 F Pulse Rate 92 85 Respiratory Rate 13 Blood Pressure 158/61 H Pulse Oximetry 98 97 Intake/Output Intake/Output: Intake & Output 10/12/19 10/13/19 10/14/19 10/15/19 23:59 23:59 23:59 23:59 Intake Total 858 263 866 Output Total 350 850 720 B
[2019-10-15 19:40] LABS: Glucose Point of Care 159 (65-105)
[2019-10-15] MEDS: INSULIN ASPART (*BKC) 100 UNITS/ML SUB-Q (23:47)
[2019-10-15 23:48] LABS: Glucose Point of Care 240 (65-105)
[2019-10-16] VITALS (28 sets, daily range): BP systolic 127–163; BP diastolic 48–101; PULSE 74–108; RESP 14–26; TEMP 36.6–37.2; O2SAT 88–99
[2019-10-16 04:53] LABS: Alveolar/Arterial O2 Gradient 173.6 mmHg; Carboxyhemoglobin 0.3 % THb (0-2.0); Fractional Inspired Oxygen 40 %; HCO3 ABG 22.3 mEq/l (22.0-26.0); Methemoglobin ABG 0.3 %THb (0-1.5); Oxygen Content ABG 13.1 %vol (16.0-22.0); Oxygen Saturation ABG 94.2 % (95.0-100.0); Oxyhemoglobin 92.8 % THb (90.0-100.0); PCO2 ABG 36.4 mmHg (35.0-45.0); PO2 ABG 69.7 mmHg (80.0-100.0); PO2 FiO2 Ratio Arterial Blood 1.74 %; Reduced Hemoglobin 6.6 %THb (0-5.0); pH ABG 7.406 (7.350-7.450)
[2019-10-16 04:54] LABS: Device VENTILATOR; Modified Allen's Test Unable to perform; Site Drawn RIGHT RADIAL
[2019-10-16 04:55] LABS: Arterial Blood Gas PEEP 5 cmH2O; Arterial Blood Gas Tidal Volume 450 ml; Arterial Blood Gas Vent Mode CMV; Arterial Blood Gas Ventilator rate 18 /MIN
[2019-10-16] MEDS: CENTRAL LINE FLUSH 10 ML IV PUSH ×4 (05:04→20:49)
[2019-10-16 05:08] LABS: Glucose Point of Care 199 (65-105)
[2019-10-16 05:34] LABS: Hematocrit 28.9 % (42.0-52.0); Hemoglobin 9.4 g/dL (14.0-18.0); Mean Corpuscular HGB Conc 32.5 g/dl (32-36); Mean Corpuscular Volume 95.4 fl (80-100); Mean Platelet Volume 11.1 fl (7.4-10.4); Platelet Count Result 155 k/mm3 (150-375); Red Blood Count 3.03 M/mm3 (4.6-6.20); Red Cell Distribution Width 13.5 % (11.5-14.5); White Blood Count 14.5 K/mm3 (4.5-10.0)
[2019-10-16 05:44] LABS: Lactic Acid Reflex 1.1 mmol/L (0.7-2.1)
[2019-10-16 05:47] LABS: Anion Gap 10 mmol/L (8-16); Blood Urea Nitrogen 106 mg/dL (9-20); Calcium 8.5 mg/dL (8.4-10.2); Carbon Dioxide 24 mmol/L (22-30); Chloride 100 mmol/L (98-107); Estimated CRCL calculation 23 ml/min; Estimated Glomerular Filt Rate 21; Glucose 215 mg/dL (75-110); Magnesium 2.4 mg/dL (1.6-2.3); Phosphorus 4.1 mg/dL (2.5-4.5); Potassium 3.8 mmol/L (3.4-5.0); Sodium 134 mmol/L (137-145)
[2019-10-16] MEDS: levoFLOXacin 250 MG/D5W 50 ML 250 MG/50 ML BAG 50 MG IVPB (09:07)
[2019-10-16] MEDS: ASPIRIN 81 MG ENTERIC TABLET PO (09:07)
[2019-10-16] MEDS: FUROSEMIDE INJ 40 MG/4 ML VIAL IV PUSH ×2 (10:55→16:35)
[2019-10-16] MEDS: DORNASE ALFA INH SOLN 1 MG/ML 2.5 ML AMP 2.5 MG INHALATION ×2 (11:51→20:53)
--- NOTE | 2019-10-16 12:14 | PCDIET ---
ICU Rounding Note: Patient has been receiving Nepro at 40mL/hr goal rate without reported issues. Last recorded weight is 115.3kg which is stable, despite increased urine output and negative I/O. Bowel Motility: Last documented BM on 10/14/19. Labs Reviewed: Hgb (9.4), Hct (28.9), Glu (199), BUN (106), Cr (2.9), Na (134) Meds Noted: Cefepime, Dobutamine, Fentanyl, Lasix, Novolog, Levaquin, Versed, Levophed, Vancomycin Additional Notes: RN reports rash in abdominal folds. No open areas documented. Following daily in ICU rounds. Assessing/reassessing every Monday/Monday.
[2019-10-16 12:43] LABS: Vancomycin Trough 14.4 ug/mL (10.0-20.0)
--- NOTE | 2019-10-16 13:04 | WPDINTPN ---
Progress Note: A&P Assessment and Plan (1) Acute respiratory failure: Code(s): J96.00 - Acute respiratory failure, unspecified whether with hypoxia or hypercapnia Status: Acute Assessment and Plan: patient with acute respiratory failure on admission, likely respiratory arrest from congestive heart failure, pneumonia, pulmonary edema and volume overload - Continue mechanical ventilation. His FiO2 is down to 35%. His PEEP is 5. - have asked bedside RN to hold Sedation and tube feeds - patient diuresed very well yesterday, will again diurese today, place patient on spontaneous breathing trial and evaluate for extubation today (2) Pneumonia: Qualifiers: Pneumonia type: due to unspecified organism Laterality: bilateral Lung location: lower lobe of lung Qualified Code(s): J18.9 - Pneumonia, unspecified organism Code(s): J18.9 - Pneumonia, unspecified organism Status: Acute Assessment and Plan: Bilateral airspace disease with hemoptysis. Continue empiric antibiotics with cefepime levofloxacin and vancomycin. Follow sputum and blood culture which are negative as of now Pulmonary has been consulted. HRCT done 10/14/2019: shows diffuse ground-glass opacities suggestive of pulmonary edema, left lower lobe consolidation/ atelectasis and left pleural effusion (3) Shock: Code(s): R57.9 - Shock, unspecified Status: Acute Assessment and Plan: improved and patient is off of vasopressors. likely septic and cardiogenic in nature monitor echocardiogram reviewed (4) Cardiac arrest due to respiratory disorder: Code(s): J98.9 - Respiratory disorder, unspecified; I46.8 - Cardiac arrest due to other underlying condition Status: Acute Assessment and Plan: Likely as a result of respiratory arrest. It is unclear the underlying rhythm during cardiac arrest. ROCS were achieved after 5 minutes. He was awake and following command and did not require hypothermia protocol. (5) Coronary artery disease: Code(s): I25.10 - Atherosclerotic heart disease of [place] coronary artery without angina pectoris Status: Acute Assessment and Plan: He has extensive cardiac history with 17 stents. Troponin has been elevated here. Cardiology has been consulted and recommend conservative management at this time (6) Pulmonary edema: Qualifiers: Chronicity: acute Qualified Code(s): J81.0 - Acute pulmonary edema Code(s): J81.1 - Chronic pulmonary edema Status: Acute Assessment and Plan: Bilateral airspace disease with pink frothy secretion with some red blood as well. will give Lasix again today (7) Acute exacerbation of CHF (congestive heart failure): Code(s): I50.9 - Heart failure, unspecified Status: Acute Assessment and Plan: ECHO 10/13 shows moderate pulmonary hypertension and both systolic and diastolic congestive heart failure with EF of 20-25%. continue low-dose dobutamine infusion and diuresis Summary 1. Complete two-dimensional, color flow and Doppler transthoracic echocardiogram is performed. 2. Left ventricular chamber dimension is moderately enlarged. 3. Left ventricular systolic function is severely reduced, estimated at 20-25%. 4. There is moderately increased left ventricular wall thickness. 5. Left ventricular septal wall motion is abnormal with septal motion related to pacing. 6. The left ventricular diastolic function is grade II diastolic dysfunction. 7. Left atrial chamber dimension is mildly enlarged. 8. There is moderate aortic valve calcification. 9. The mitral valve has thickened leaflets and calcified annulus. 10. There is moderate mitral valve regurgitation. 11. Moderate pulmonary hypertension, estimated pulmonary arterial systolic pressure is 53 mmHg. 12. There is mild tricuspid valve regurgitation. 13. There is mild pulmonic regurg
[2019-10-16 13:35] LABS: Glucose Point of Care 188 (65-105)
[2019-10-16 13:56] LABS: Fractional Inspired Oxygen 35 %; HCO3 ABG 23.5 mEq/l (22.0-26.0); Oxygen Content ABG 14.5 %vol (16.0-22.0); Oxyhemoglobin 94.1 % THb (90.0-100.0); PCO2 ABG 33.9 mmHg (35.0-45.0); PO2 ABG 76.1 mmHg (80.0-100.0); PO2 FiO2 Ratio Arterial Blood 2.17 %; Total Hemoglobin 10.9 g/dL (12.0-18.0); pH ABG 7.458 (7.350-7.450)
[2019-10-16 13:57] LABS: Arterial Blood Gas PEEP 5 cmH2O; Arterial Blood Gas Pressure Support 8 cmH2O; Arterial Blood Gas Vent Mode SPONTANEOUS; Device VENTILATOR; Modified Allen's Test Pass; Site Drawn LEFT RADIAL
--- NOTE | 2019-10-16 14:51 | PM.PNCARD ---
Progress Note: A&P Assessment and Plan (1) Elevated troponin: Code(s): R79.89 - Other specified abnormal findings of blood chemistry Status: Acute Assessment and Plan: thought most likely type 2 infarction rather than related to acute plaque rupture. continue supportive care. Known underlying CAD. (2) Coronary artery disease: Code(s): I25.10 - Atherosclerotic heart disease of [place] coronary artery without angina pectoris Status: Acute Assessment and Plan: known history of multiple stents. Continue aspirin 81 mg p.o. daily the hold Plavix for now given hemoptysis (3) Cardiac arrest due to respiratory disorder: Code(s): J98.9 - Respiratory disorder, unspecified; I46.8 - Cardiac arrest due to other underlying condition Status: Acute Assessment and Plan: Unclear etiology most likely respiratory. still blood-tinged sputum in OG. Per Critical Care. Patient remains critically ill. Prognosis guarded. planning to extubate per critical care later today. (4) Pulmonary edema: Qualifiers: Chronicity: acute Qualified Code(s): J81.0 - Acute pulmonary edema Code(s): J81.1 - Chronic pulmonary edema Status: Acute Assessment and Plan: COVID Negative. Continue pressor support for now. diuresing, urine output improving. (5) Acute exacerbation of CHF (congestive heart failure): Code(s): I50.9 - Heart failure, unspecified Status: Acute Assessment and Plan: IV furosemide 80 mg twice daily. on dobutamine for management of heart failure, declining urine output, worsening renal failure. Monitor for tachyarrhythmias on dobutamine. Monitor and replete electrolytes as appropriate. Wean Levophed. (6) Acute on chronic renal failure: Code(s): N17.9 - Acute kidney failure, unspecified; N18.9 - Chronic kidney disease, unspecified Status: Acute Assessment and Plan: on dobutamine, BUN 106, creatinine 2.9 today. as above. (7) Shock: Code(s): R57.9 - Shock, unspecified Status: Acute Assessment and Plan: As above. Dexamethasone discontinued due to negative COVID. Monitor hemodynamic status with diuresis very closely. . Subjective Date/time seen: date of service:10/16/19 14:51 Interval history: 84-year-old admitted for shortness of breath, hemoptysis , CHF. Status post arrest in ER Hemodynamically stable. Urine output improving, FIO2 35%, on Dobutamine. On vent, sedated. Intermittent V paced. Review of Systems Review of Systems: All systems reviewed & are unremarkable except as noted in HPI and below ROS unobtainable: Yes unobtainable due to endotracheal tube Constitutional: Constitutional: Reports fatigue and Reports weakness Eyes: Eyes: Denies blurry vision ENT: Denies lip swelling, Denies epistaxis and Denies neck pain Cardiovascular: Cardiovascular: Denies pedal edema and Reports dyspnea Respiratory: Respiratory: Reports cough, Reports hemoptysis and Reports dyspnea Gastrointestinal: Gastrointestinal: Reports vomiting Genitourinary: Genitourinary: Denies dysuria Musculoskeletal: Musculoskeletal: Denies neck pain Integumentary/Breasts: Skin/Breast: Denies dry skin Neurologic: Denies behavioral changes and Reports weakness Psychiatric: Psychiatric: Denies behavioral changes Endocrine: Endocrine: Reports fatigue Hematologic/Lymphatic: Hematologic/Lymphatic: Reports easy bleeding Allergic/Immunologic: Allergic/Immunologic: Denies lip swelling Exam Narrative: Exam Narrative: Currently intubated and sedated. no apparent distress. . Const: General: comfortable HENMT: General nose exam: Normal nares present Eyes: Sclera: sclerae normal Neck: Neck: supple and no JVD Chest: Other: No chest wall deformities noted. Resp: Auscultation: diminished lung sounds Cardio: Rate: regular rate Other: Ectopy noted Skin: General skin exam: normal colo
--- NOTE | 2019-10-16 15:50 | ECG_ITS ---
Measurements Intervals [place] Rate: 96 P: 43 [place]: 208 QRS: -47 QRSD: 170 T: 143 QT: 368 QTc: 467 Interpretive Statements ELECTRONIC ATRIAL PACEMAKER WITH INHIBITION ELECTRONIC VENTRICULAR PACEMAKER WITH INHIBITION FREQUENTVENTRICULAR PREMATURE COMPLEX NO FURTHER INTERPRETATION IS POSSIBLE ABNORMAL ECG Electronically Signed On 10-17-2019 11:13:55 CDT by Jaime Fuchs D.O.
[2019-10-16] MEDS: DOBUTamine 250 MG/D5W 250 ML 250 MG/250 ML BAG 17.3 MG IV CONT (16:03)
--- NOTE | 2019-10-16 16:34 | PM.IMPN ---
Progress Note: A&P Assessment and Plan (1) Acute hypoxemic respiratory failure: Code(s): J96.01 - Acute respiratory failure with hypoxia Status: Acute Assessment and Plan: Likely due to pulmonary edema and PNA. He is going for a breathing trial and possible extubation. (2) Shock: Code(s): R57.9 - Shock, unspecified Status: Acute Assessment and Plan: Possible cardiogenic and septic. On dobutamine. On wide spectrum antibiotics for possible PNA. (3) Acute exacerbation of CHF (congestive heart failure): Code(s): I50.9 - Heart failure, unspecified Status: Acute Assessment and Plan: Ef noted to be around 20-25% systolic dysfunction. On lasix and was also started on dobutamine. (4) Pulmonary edema: Qualifiers: Chronicity: acute Qualified Code(s): J81.0 - Acute pulmonary edema Code(s): J81.1 - Chronic pulmonary edema Status: Acute Assessment and Plan: As detailed above. (5) Pneumonia: Qualifiers: Pneumonia type: due to unspecified organism Laterality: bilateral Lung location: lower lobe of lung Qualified Code(s): J18.9 - Pneumonia, unspecified organism Code(s): J18.9 - Pneumonia, unspecified organism Status: Acute Assessment and Plan: On levofloxacin, cefepime and vancomycin. (6) Hemoptysis: Code(s): R04.2 - Hemoptysis Status: Acute Assessment and Plan: This problem seems to be resolved now. Continue to monitor. (7) Suspected COVID-19 virus infection: Code(s): Z20.828 - Contact with and (suspected) exposure to other viral communicable diseases Status: Acute Assessment and Plan: Negative. Subjective Date/time seen: Off sedation, he is going for a breathing trial later today. 10/16/19 16:34 Exam Const: Other: Intubated but alert Resp: Auscultation: rales Cardio: Other: Paced rhythm. GI: Auscultation: normal bowel sounds Urinary Catheter: Urinary Catheter: patent and draining Extrem: Other: Non pitting edema in lower extremities. Objective Data Vital Signs Vital Signs: Vital Signs - 24 hr 10/15/19 17:29 10/15/19 18:00 10/15/19 20:00 Temperature 97.7 F Pulse Rate 75 90 88 Respiratory Rate 21 H 22 H Blood Pressure 152/76 H 140/76 Pulse Oximetry 99 99 99 10/15/19 20:24 10/15/19 20:49 10/15/19 21:38 Temperature Pulse Rate 89 90 90 Respiratory Rate 18 18 Blood Pressure Pulse Oximetry 96 10/15/19 21:39 10/15/19 22:00 10/15/19 23:08 Temperature Pulse Rate 90 81 90 Respiratory Rate 18 20 Blood Pressure 133/61 Pulse Oximetry 97 97 10/15/19 23:48 10/16/19 00:00 10/16/19 01:51 Temperature 97.9 F Pulse Rate 78 74 85 Respiratory Rate 18 Blood Pressure 157/62 H 155/87 H Pulse Oximetry 95 97 10/16/19 02:00 10/16/19 04:00 10/16/19 04:24 Temperature 98.2 F Pulse Rate 76 81 81 Respiratory Rate 18 18 18 Blood Pressure 157/73 H 150/95 H Pulse Oximetry 97 94 10/16/19 05:03 10/16/19 05:30 10/16/19 06:00 Temperature Pulse Rate 87 82 107 H Respiratory Rate 18 22 H Blood Pressure 161/79 H Pulse Oximetry 96 97 10/16/19 08:00 10/16/19 08:09 10/16/19 09:30 Temperature 98.5 F Pulse Rate 99 90 85 Respiratory Rate 21 H 15 Blood Pressure 152/59 H Pulse Oximetry 97 97 10/16/19 10:00 10/16/19 11:00 10/16/19 11:09 Temperature Pulse Rate 81 98 102 H Respiratory Rate 14 15 Blood Pressure 151/101 H Pulse Oximetry 97 98 10/16/19 11:54 10/16/19 12:00 10/16/19 12:05 Temperature Pulse Rate 97 90 98 Respiratory Rate 18 17 18 Blood Pressure 162/82 H Pulse Oximetry 98 10/16/19 14:00 Temperature Pulse Rate 82 Respiratory Rate 19 Blood Pressure 127/48 L Pulse Oximetry 95 Intake/Output Intake/Output: Intake & Output 10/13/19 10/14/19 10/15/19 10/16/19 23:59 23:59 23:59 23:59 Intake Total 170 874 9724 1105.1 Output Total 350
[2019-10-16] MEDS: INSULIN ASPART (*BKC) 100 UNITS/ML SUB-Q (16:45)
[2019-10-16 16:58] LABS: Glucose Point of Care 215 (65-105)
--- NOTE | 2019-10-16 17:52 | P.PNNP_ITS ---
Progress Note: A&P Assessment and Plan (1) IMER (acute kidney injury): Code(s): N17.9 - Acute kidney failure, unspecified Status: Acute Assessment and Plan: * multifactorial ATN due to: - cardiac arrest - respiratory arrest - hemodynamic instability (shock) - acute infection (pneumonia?) * this is further complicated by his cardio-renal syndrome/physiology * no critical electrolytes at this time * volume status a bit of an issue - still making urine with IV diuretics and dobutamine gtt * follow repeat labs and UOP (2) Chronic kidney disease, stage 4 (severe): Code(s): N18.4 - Chronic kidney disease, stage 4 (severe) Status: Chronic Assessment and Plan: * baseline creatinine ~ 2.0 - 2.5mg/dl since as far back as 2017 * more recently, 2.4mg/dl as of August 2019 * due to DM, HTN, ANTHONY, vascular disease and likely chronic prerenal azotemia (from cardiorenal syndrome) (3) Acute hypoxemic respiratory failure: Code(s): J96.01 - Acute respiratory failure with hypoxia Status: Acute Assessment and Plan: * extubated * due to pneumonia +/- pulmonary edema * CT of chest results noted * Pulmonary following * on antibiotics * COVID-19 ruled out * continue diuretics (4) Cardiac arrest due to respiratory disorder: Code(s): J98.9 - Respiratory disorder, unspecified; I46.8 - Cardiac arrest due to other underlying condition Status: Acute Assessment and Plan: * presumably potentiated by respiratory failure * ROSC after ~ 5 minutes * continue supportive therapy (5) Acute exacerbation of CHF (congestive heart failure): Code(s): I50.9 - Heart failure, unspecified Status: Acute Assessment and Plan: * Echo results noted * on IV diuretics and dobutamine * follow I/Os and repeat labs * Cardiology following (6) Hemoptysis: Code(s): R04.2 - Hemoptysis Status: Acute Assessment and Plan: * due to edema and pneumonia * previous serological testing for CKD negative * however, consider re-checking given presentation (hemoptysis + IMER...etc) * appears to be clearing Will continue to follow. Subjective Date/time seen: 10/16/19 17:52 Successfully extubated today after good diuresis in the last 24 hours; remains on dobutamine gtt and remains hemodynamically stable; no acute distress voiced -- respiratory status seems reasonable. Exam Narrative: Exam Narrative: General: WD/WN male in NAD; on venti-mask Heart: normal S1 and S2; no rub Lungs: coarse with bibasilar rhonchi Abdomen: soft, nontender, nondistended, positive bowel sounds Extremities: no cyanosis or clubbing; trace edema Skin: warm and dry Objective Data Vital Signs Vital Signs: Vital Signs Temp Pulse Resp BP Pulse Ox 10/16/19 17:00 95 10/16/19 16:55 88 L 10/16/19 14:15 93 10/16/19 14:00 82 19 127/48 L 95 10/16/19 12:05 98 18 10/16/19 12:00 90 17 162/82 H 98 10/16/19 11:54 97 18 10/16/19 11:09 102 H 98 10/16/19 11:00 98 15 10/16/19 10:00 81 14 151/101 H 97 10/16/19 09:30 85 15 10/16/19 08:09 90 97 10/16/19 08:00 36.9 C 99 21 H 152/59 H 97 10/16/19 06:00 107 H 22 H 161/79 H 97 10/16/19 05:30 82 18 10/16/19 05:03 87 96
--- NOTE | 2019-10-16 17:52 | PM.PNNEP ---
Progress Note: A&P Assessment and Plan (1) IMER (acute kidney injury): Code(s): N17.9 - Acute kidney failure, unspecified Status: Acute Assessment and Plan: multifactorial ATN due to: - cardiac arrest - respiratory arrest - hemodynamic instability (shock) - acute infection (pneumonia?) this is further complicated by his cardio-renal syndrome/physiology no critical electrolytes at this time volume status a bit of an issue - still making urine with IV diuretics and dobutamine gtt follow repeat labs and UOP (2) Chronic kidney disease, stage 4 (severe): Code(s): N18.4 - Chronic kidney disease, stage 4 (severe) Status: Chronic Assessment and Plan: baseline creatinine ~ 2.0 - 2.5mg/dl since as far back as 2017 more recently, 2.4mg/dl as of August 2019 due to DM, HTN, ANTHONY, vascular disease and likely chronic prerenal azotemia (from cardiorenal syndrome) (3) Acute hypoxemic respiratory failure: Code(s): J96.01 - Acute respiratory failure with hypoxia Status: Acute Assessment and Plan: extubated due to pneumonia +/- pulmonary edema CT of chest results noted Pulmonary following on antibiotics COVID-19 ruled out continue diuretics (4) Cardiac arrest due to respiratory disorder: Code(s): J98.9 - Respiratory disorder, unspecified; I46.8 - Cardiac arrest due to other underlying condition Status: Acute Assessment and Plan: presumably potentiated by respiratory failure ROSC after ~ 5 minutes continue supportive therapy (5) Acute exacerbation of CHF (congestive heart failure): Code(s): I50.9 - Heart failure, unspecified Status: Acute Assessment and Plan: Echo results noted on IV diuretics and dobutamine follow I/Os and repeat labs Cardiology following (6) Hemoptysis: Code(s): R04.2 - Hemoptysis Status: Acute Assessment and Plan: due to edema and pneumonia previous serological testing for CKD negative however, consider re-checking given presentation (hemoptysis + IMER...etc) appears to be clearing Will continue to follow. Subjective Date/time seen: 10/16/19 17:52 Successfully extubated today after good diuresis in the last 24 hours; remains on dobutamine gtt and remains hemodynamically stable; no acute distress voiced -- respiratory status seems reasonable. Exam Narrative: Exam Narrative: General: WD/WN male in NAD; on venti-mask Heart: normal S1 and S2; no rub Lungs: coarse with bibasilar rhonchi Abdomen: soft, nontender, nondistended, positive bowel sounds Extremities: no cyanosis or clubbing; trace edema Skin: warm and dry Objective Data Vital Signs Vital Signs: Vital Signs Temp Pulse Resp BP Pulse Ox 10/16/19 17:00 95 10/16/19 16:55 88 L 10/16/19 14:15 93 10/16/19 14:00 82 19 127/48 L 95 10/16/19 12:05 98 18 10/16/19 12:00 90 17 162/82 H 98 10/16/19 11:54 97 18 10/16/19 11:09 102 H 98 10/16/19 11:00 98 15 10/16/19 10:00 81 14 151/101 H 97 10/16/19 09:30 85 15 10/16/19 08:09 90 97 10/16/19 08:00 36.9 C 99 21 H 152/59 H 97 10/16/19 06:00 107 H 22 H 161/79 H 97 10/16/19 05:30 82 18 10/16/19 05:03 87 96 10/16/19 04:24 81 18 10/16/19 04:00 36.8 C 81 18 150/95 H 94 10/16/19 02:00 76 18 157/73 H 97 10/16/19 01:51 85 97 10/16/19 00:00 36.6 C 74 18 155/87 H 95 10/15/19 23:48 78 157/62 H 10/15/19 23:08 90 97 10/15/19 22:00 81 20 133/61 97 10/15/19 21:39 90 18 10/15/19 21:38 90 18 10/15/19 20:49 90 18 10/15/19 20:24 89 96 10/15/19 20:00 36.5 C 88 22 H 140/76 99 10/15/19 18:00 90 21 H 152/76 H 99 Intake/Output Intake/Output: Intake & Output 10/13/19 10/14/19 10/15/19 10/16/19 23:59 23:59 23:59 23:59 Intake Total 804 854 4449 1105.1 Output Tot
--- NOTE | 2019-10-16 20:08 | PM.PNPUL ---
Progress Note: A&P Assessment and Plan (1) Acute hypoxemic respiratory failure: Code(s): J96.01 - Acute respiratory failure with hypoxia <Eufemia Cadena MD - Last Filed: 10/18/19 22:42> Status: Acute <Eufemia Cadena MD - Last Filed: 10/18/19 22:42> Assessment and Plan: Likely from bilateral pneumonia, probably aspiration in nature - broad spectrum antibiotics with Cefpime, Vancomcycin and Levaquin. - SARS-CoV-2 nasal swab negative -extubated, appears to be tolerating this, watching closely for any deterioration <Eufemia Cadena MD - Last Filed: 10/18/19 22:42> (2) Pneumonia: Qualifiers: Laterality: bilateral Lung location: lower lobe of lung Pneumonia type: due to unspecified organism Qualified Code(s): J18.9 - Pneumonia, unspecified organism <Eufemia Cadena MD - Last Filed: 10/18/19 22:42> Code(s): J18.9 - Pneumonia, unspecified organism <Eufemia Cadena MD - Last Filed: 10/18/19 22:42> Status: Acute <Eufemia Cadena MD - Last Filed: 10/18/19 22:42> Assessment and Plan: - stable pattern on CXR <Eufemia Cadena MD - Last Filed: 10/18/19 22:42> Subjective Date/time seen: 10/16/19 20:08 84 yo man is seen in follow up for acute respiratory failure due to hemoptysis, CHF, now extubated, has chest pain from CPR, appears to be comfortable however will need to be watched closely to see if he can protect his airway and stay off the vent. <Eufemia Cadena MD - Last Filed: 10/18/19 22:42> Review of Systems Review of Systems: All systems reviewed & are unremarkable except as noted in HPI and below <Eufemia Cadena MD - Last Filed: 10/18/19 22:42> Exam Const: General: no acute distress <Eufemia Cadena MD - Last Filed: 10/18/19 22:42> Other: <Eufemia Cadena MD - Last Filed: 10/18/19 22:42> HENMT: Mouth: Yes moist mucous membranes <Eufemia Cadena MD - Last Filed: 10/18/19 22:42> Eyes: General: appearance normal, both eyes and all related structures <Eufemia Cadena MD - Last Filed: 10/18/19 22:42> Neck: Neck: supple and no JVD <Eufemia Cadena MD - Last Filed: 10/18/19 22:42> Resp: Auscultation: crackles (at bases ) bilateral <Eufemia Cadena MD - Last Filed: 10/18/19 22:42> Cardio: Rate: regular rate <Eufemia Cadena MD - Last Filed: 10/18/19 22:42> Rhythm: regular rhythm <Eufemia Cadena MD - Last Filed: 10/18/19 22:42> Heart sounds: no murmurs <Eufemia Cadnea MD - Last Filed: 10/18/19 22:42> GI: Auscultation: normal bowel sounds <Eufemia Cadena MD - Last Filed: 10/18/19 22:42> Skin: General skin exam: normal color and no rashes or lesions noted <Eufemia Cadena MD - Last Filed: 10/18/19 22:42> Extrem: General: normal to inspection and edema (mild generalized edema) bilateral <Eufemia Cadena MD - Last Filed: 10/18/19 22:42> Objective Data Vital Signs Vital Signs: Vital Signs - 24 hr 10/15/19 20:24 10/15/19 20:49 10/15/19 21:38 Temperature Pulse Rate 89 90 90 Respiratory Rate 18 18 Blood Pressure Pulse Oximetry 96 10/15/19 21:39 10/15/19 22:00 10/15/19 23:08 Temperature Pulse Rate 90 81 90 Respiratory Rate 18 20 Blood Pressure 133/61 Pulse Oximetry 97 97 10/15/19 23:48 10/16/19 00:00 10/16/19 01:51 Temperature 36.6 C Pulse Rate 78 74 85 Respiratory Rate 18 Blood Pressure 157/62 H 155/87 H Pulse Oximetry 95 97 10/16/19 02:00 10/16/19 04:00 10/16/19 04:24 Temperature 36.8 C Pulse Rate 76 81 81 Respiratory Rate 18 18 18 Blood Pressure 157/73 H 150/95 H Pulse Oximetry 97 94 10/16/19 05:03 10/16/19 05:30 10/16/19 06:00 Temperature Pulse Rate 87 82 107 H Respiratory Rate 18 22 H Blood Pressure 161/79 H Pulse Oximetry 96 97 10/16/19 08:00
[2019-10-16] MEDS: TOLNAFTATE 1% POWDER 45 GM BTL 1 APPLIC TOPICAL (20:49)
[2019-10-17] VITALS (22 sets, daily range): BP systolic 100–168; BP diastolic 52–89; PULSE 69–98; RESP 21–34; TEMP 36.3–36.9; O2SAT 91–100
[2019-10-17] MEDS: INSULIN ASPART (*BKC) 100 UNITS/ML SUB-Q ×4 (00:11→23:01)
[2019-10-17 00:13] LABS: Glucose Point of Care 243 (65-105)
[2019-10-17] MEDS: CENTRAL LINE FLUSH 10 ML IV PUSH ×4 (04:10→20:14)
[2019-10-17 04:20] LABS: Basophils Percent Auto 0.1 % (0.2-1.2); Eosinophils Percent Auto 0.1 % (0-4.4); Hematocrit 32.9 % (42.0-52.0); Hemoglobin 10.6 g/dL (14.0-18.0); Immature Granulocyte Absolute 0.13 K/mm3 (0.00-0.031); Immature Granulocyte Percent A 0.9 % (0-0.5); Lymphocytes Absolute Auto 1.08 K/mm3 (0.9-3.2); Lymphocytes Percent Auto 7.6 % (18.3-44.2); Mean Corpuscular HGB Conc 32.2 g/dl (32-36); Mean Corpuscular Hemoglobin 31.1 pg (26-34); Mean Corpuscular Volume 96.5 fl (80-100); Mean Platelet Volume 10.7 fl (7.4-10.4); Monocytes Absolute Auto 1.2 K/mm3 (0.1-0.6); Monocytes Percent Auto 8.5 % (2.6-8.5); Neutrophils Absolute Auto 11.8 K/mm3 (1.3-6.7); Neutrophils Percent Auto 82.8 % (45.5-73.1); Platelet Count Result 160 k/mm3 (150-375); Red Blood Count 3.41 M/mm3 (4.6-6.20); Red Cell Distribution Width 13.8 % (11.5-14.5); White Blood Count 14.2 K/mm3 (4.5-10.0)
[2019-10-17 04:29] LABS: Alveolar/Arterial O2 Gradient 258.1 mmHg; Base Excess ABG -0.9 mEq/l (+/-2.0); Carboxyhemoglobin 0.4 % THb (0-2.0); Fractional Inspired Oxygen 50 %; HCO3 ABG 23.2 mEq/l (22.0-26.0); Oxygen Content ABG 14.8 %vol (16.0-22.0); Oxygen Saturation ABG 90.3 % (95.0-100.0); Oxyhemoglobin 89.1 % THb (90.0-100.0); PCO2 ABG 36.8 mmHg (35.0-45.0); PO2 FiO2 Ratio Arterial Blood 1.14 %; Reduced Hemoglobin 10.5 %THb (0-5.0); Total Hemoglobin 11.8 g/dL (12.0-18.0); pH ABG 7.418 (7.350-7.450)
[2019-10-17 04:30] LABS: Device VENTURI MASK; Modified Allen's Test Pass; Site Drawn LEFT RADIAL
[2019-10-17 04:33] LABS: Lactic Acid Reflex 1.8 mmol/L (0.7-2.1)
[2019-10-17 04:34] LABS: Anion Gap 10 mmol/L (8-16); Blood Urea Nitrogen 97 mg/dL (9-20); Calcium 8.9 mg/dL (8.4-10.2); Carbon Dioxide 25 mmol/L (22-30); Chloride 100 mmol/L (98-107); Estimated CRCL calculation 24 ml/min; Estimated Glomerular Filt Rate 22; Glucose 240 mg/dL (75-110); Magnesium 2.3 mg/dL (1.6-2.3); Phosphorus 3.8 mg/dL (2.5-4.5); Potassium 3.7 mmol/L (3.4-5.0); Sodium 135 mmol/L (137-145)
[2019-10-17] MEDS: DOBUTamine 250 MG/D5W 250 ML 250 MG/250 ML BAG 17.3 MG IV CONT ×2 (04:51→20:13)
[2019-10-17 05:05] LABS: Glucose Point of Care 256 (65-105)
[2019-10-17] MEDS: DORNASE ALFA INH SOLN 1 MG/ML 2.5 ML AMP 2.5 MG INHALATION ×2 (10:09→21:05)
[2019-10-17] MEDS: levoFLOXacin 250 MG/D5W 50 ML 250 MG/50 ML BAG 50 MG IVPB (11:45)
[2019-10-17] MEDS: TOLNAFTATE 1% POWDER 45 GM BTL 1 APPLIC TOPICAL ×2 (12:10→20:14)
[2019-10-17 12:13] LABS: Glucose Point of Care 228 (65-105)
--- NOTE | 2019-10-17 13:35 | P.PNNP_ITS ---
Progress Note: A&P Assessment and Plan (1) IMER (acute kidney injury): Code(s): N17.9 - Acute kidney failure, unspecified Status: Acute Assessment and Plan: * multifactorial ATN due to: - cardiac arrest - respiratory arrest - hemodynamic instability (shock) - acute infection (pneumonia?) * this is further complicated by his cardio-renal syndrome/physiology * no critical electrolytes at this time * making good urine output with IV diuretics and dobutamine gtt * follow repeat labs and UOP (2) Chronic kidney disease, stage 4 (severe): Code(s): N18.4 - Chronic kidney disease, stage 4 (severe) Status: Chronic Assessment and Plan: * baseline creatinine ~ 2.0 - 2.5mg/dl since as far back as 2017 * more recently, 2.4mg/dl as of August 2019 * due to DM, HTN, ANTHONY, vascular disease and likely chronic prerenal azotemia (from cardiorenal syndrome) (3) Acute hypoxemic respiratory failure: Code(s): J96.01 - Acute respiratory failure with hypoxia Status: Acute Assessment and Plan: * extubated * due to pneumonia +/- pulmonary edema * CT of chest results noted * Pulmonary following - may need bronchoscopy based on last imaging * on antibiotics * COVID-19 ruled out * continue diuretics (4) Cardiac arrest due to respiratory disorder: Code(s): J98.9 - Respiratory disorder, unspecified; I46.8 - Cardiac arrest due to other underlying condition Status: Acute Assessment and Plan: * presumably potentiated by respiratory failure * ROSC after ~ 5 minutes * continue supportive therapy (5) Acute exacerbation of CHF (congestive heart failure): Code(s): I50.9 - Heart failure, unspecified Status: Acute Assessment and Plan: * Echo results noted * on IV diuretics and dobutamine * follow I/Os and repeat labs * Cardiology following (6) Hemoptysis: Code(s): R04.2 - Hemoptysis Status: Acute Assessment and Plan: * due to edema and pneumonia * previous serological testing for CKD negative - however, consider re-checking given presentation (hemoptysis + IMER...etc) * appears to be clearing Will continue to follow. Subjective Date/time seen: 10/17/19 13:35 Extubated yesterday and remains on supplemental oxygen at this time; significant pain issues all over requiring pain medications; remains on dobutamine with excellent urine output in response to IV diuretics. Exam Narrative: Exam Narrative: General: WD/WN male with on/off pain issues Heart: normal S1 and S2; no rub Lungs: coarse with bibasilar rhonchi Abdomen: soft, nontender, nondistended, positive bowel sounds Extremities: no cyanosis or clubbing; trace edema Skin: warm and intact Objective Data Vital Signs Vital Signs: Vital Signs Temp Pulse Resp BP Pulse Ox 10/17/19 12:00 36.4 C L 70 26 H 163/73 H 91 10/17/19 10:10 82 28 H 10/17/19 10:00 75 27 H 154/89 H 96 10/17/19 08:00 36.3 C L 87 34 H 158/74 H 98 10/17/19 07:00 88 139/65 10/17/19 06:00 90 30 H 155/56 H 97 10/17/19 04:51 79 144/68 H 10/17/19 04:15 90 25 H 94 10/17/19 04:00 36.8 C 95 26 H 144/68 H 95 10/17/19 02:00 75 25 H 139/72 100 10/17/19 00:00 36.7 C 98 25 H 140/64 96 10/16/19 22:45 81 26 H 163/100 H 94 10/16/19 22
--- NOTE | 2019-10-17 13:35 | PM.PNNEP ---
Progress Note: A&P Assessment and Plan (1) IMER (acute kidney injury): Code(s): N17.9 - Acute kidney failure, unspecified Status: Acute Assessment and Plan: multifactorial ATN due to: - cardiac arrest - respiratory arrest - hemodynamic instability (shock) - acute infection (pneumonia?) this is further complicated by his cardio-renal syndrome/physiology no critical electrolytes at this time making good urine output with IV diuretics and dobutamine gtt follow repeat labs and UOP (2) Chronic kidney disease, stage 4 (severe): Code(s): N18.4 - Chronic kidney disease, stage 4 (severe) Status: Chronic Assessment and Plan: baseline creatinine ~ 2.0 - 2.5mg/dl since as far back as 2017 more recently, 2.4mg/dl as of August 2019 due to DM, HTN, ANTHONY, vascular disease and likely chronic prerenal azotemia (from cardiorenal syndrome) (3) Acute hypoxemic respiratory failure: Code(s): J96.01 - Acute respiratory failure with hypoxia Status: Acute Assessment and Plan: extubated due to pneumonia +/- pulmonary edema CT of chest results noted Pulmonary following - may need bronchoscopy based on last imaging on antibiotics COVID-19 ruled out continue diuretics (4) Cardiac arrest due to respiratory disorder: Code(s): J98.9 - Respiratory disorder, unspecified; I46.8 - Cardiac arrest due to other underlying condition Status: Acute Assessment and Plan: presumably potentiated by respiratory failure ROSC after ~ 5 minutes continue supportive therapy (5) Acute exacerbation of CHF (congestive heart failure): Code(s): I50.9 - Heart failure, unspecified Status: Acute Assessment and Plan: Echo results noted on IV diuretics and dobutamine follow I/Os and repeat labs Cardiology following (6) Hemoptysis: Code(s): R04.2 - Hemoptysis Status: Acute Assessment and Plan: due to edema and pneumonia previous serological testing for CKD negative - however, consider re-checking given presentation (hemoptysis + IMER...etc) appears to be clearing Will continue to follow. Subjective Date/time seen: 10/17/19 13:35 Extubated yesterday and remains on supplemental oxygen at this time; significant pain issues all over requiring pain medications; remains on dobutamine with excellent urine output in response to IV diuretics. Exam Narrative: Exam Narrative: General: WD/WN male with on/off pain issues Heart: normal S1 and S2; no rub Lungs: coarse with bibasilar rhonchi Abdomen: soft, nontender, nondistended, positive bowel sounds Extremities: no cyanosis or clubbing; trace edema Skin: warm and intact Objective Data Vital Signs Vital Signs: Vital Signs Temp Pulse Resp BP Pulse Ox 10/17/19 12:00 36.4 C L 70 26 H 163/73 H 91 10/17/19 10:10 82 28 H 10/17/19 10:00 75 27 H 154/89 H 96 10/17/19 08:00 36.3 C L 87 34 H 158/74 H 98 10/17/19 07:00 88 139/65 10/17/19 06:00 90 30 H 155/56 H 97 10/17/19 04:51 79 144/68 H 10/17/19 04:15 90 25 H 94 10/17/19 04:00 36.8 C 95 26 H 144/68 H 95 10/17/19 02:00 75 25 H 139/72 100 10/17/19 00:00 36.7 C 98 25 H 140/64 96 10/16/19 22:45 81 26 H 163/100 H 94 10/16/19 22:00 81 26 H 163/100 H 94 10/16/19 21:01 94 26 H 10/16/19 20:53 90 26 H 97 10/16/19 20:00 36.9 C 108 H 21 H 162/63 H 95 10/16/19 18:00 99 25 H 143/81 H 99 10/16/19 17:00 95 10/16/19 16:55 88 L 10/16/19 16:00 37.2 C 103 H 18 159/76 H 91 10/16/19 14:15 88 15 93 10/16/19 14:00 82 19 127/48 L 95 Intake/Output Intake/Output: Intake & Output 10/14/19 10/15/19 10/16/19 10/17/19 23:59 23:59 23:59 23:59 Intake Total 263 1350 1848.1 350 Output Total 850 2370 3600 2300 [facility]587 -1020 -1751.9 -1950 Meds/Results Medications: Active
--- NOTE | 2019-10-17 14:27 | PCDIET ---
ICU Rounding Note: Patient extubated with plan to keep NPO today, per MD. Last recorded weight is 115.3kg which is stable. Bowel Motility: Last documented BM on 10/13/19. Labs Reviewed: Hgb (10.6), Hct (32.9), Glu (240), BUN (97), Cr (2.8), Na (135) Meds Noted: Albuterol, Novolog, Cefepime, Atrovent, Dobutamine, Levaquin, Vancomycin Additional Notes: Documented maceration to bilateral groin with no other skin issues noted. Following daily in ICU rounds. Assessing/reassessing every 3 days.
--- NOTE | 2019-10-17 14:35 | WPDINTPN ---
Progress Note: A&P Assessment and Plan (1) Acute respiratory failure: Code(s): J96.00 - Acute respiratory failure, unspecified whether with hypoxia or hypercapnia Status: Acute Assessment and Plan: patient with acute respiratory failure on admission, likely respiratory arrest from congestive heart failure, pneumonia, pulmonary edema and volume overload - patient was successfully extubated on 10/16/2019 - chest x-ray this morning shows opacification of the left side, likely pleural effusion, mucus plugging, atelectasis - start patient on Pulmozyme, Mucomyst inhalers and bronchodilators, will have RT do chest PT with percussion and vest therapy - repeat chest x-ray in a.m., if does not improve have discussed with pulmonology to perform bronchoscopy (2) Pneumonia: Qualifiers: Pneumonia type: due to unspecified organism Laterality: bilateral Lung location: lower lobe of lung Qualified Code(s): J18.9 - Pneumonia, unspecified organism Code(s): J18.9 - Pneumonia, unspecified organism Status: Acute Assessment and Plan: Bilateral airspace disease with hemoptysis. Continue empiric antibiotics with cefepime levofloxacin and vancomycin. Follow sputum and blood culture which are negative as of now Pulmonary has been consulted. HRCT done 10/14/2019: shows diffuse ground-glass opacities suggestive of pulmonary edema, left lower lobe consolidation/ atelectasis and left pleural effusion (3) Shock: Code(s): R57.9 - Shock, unspecified Status: Acute Assessment and Plan: improved and patient is off of vasopressors. likely septic and cardiogenic in nature monitor echocardiogram reviewed (4) Cardiac arrest due to respiratory disorder: Code(s): J98.9 - Respiratory disorder, unspecified; I46.8 - Cardiac arrest due to other underlying condition Status: Acute Assessment and Plan: Likely as a result of respiratory arrest. It is unclear the underlying rhythm during cardiac arrest. ROCS were achieved after 5 minutes. He was awake and following command and did not require hypothermia protocol. (5) Coronary artery disease: Code(s): I25.10 - Atherosclerotic heart disease of [place] coronary artery without angina pectoris Status: Acute Assessment and Plan: He has extensive cardiac history with 17 stents. Troponin has been elevated here. Cardiology has been consulted and recommend conservative management at this time (6) Pulmonary edema: Qualifiers: Chronicity: acute Qualified Code(s): J81.0 - Acute pulmonary edema Code(s): J81.1 - Chronic pulmonary edema Status: Acute Assessment and Plan: Bilateral airspace disease with pink frothy secretion with some red blood as well. patient diuresed well approximately -5 L negative in cumulative fluid balance (7) Acute exacerbation of CHF (congestive heart failure): Code(s): I50.9 - Heart failure, unspecified Status: Acute Assessment and Plan: ECHO 10/13 shows moderate pulmonary hypertension and both systolic and diastolic congestive heart failure with EF of 20-25%. continue low-dose dobutamine infusion Summary 1. Complete two-dimensional, color flow and Doppler transthoracic echocardiogram is performed. 2. Left ventricular chamber dimension is moderately enlarged. 3. Left ventricular systolic function is severely reduced, estimated at 20-25%. 4. There is moderately increased left ventricular wall thickness. 5. Left ventricular septal wall motion is abnormal with septal motion related to pacing. 6. The left ventricular diastolic function is grade II diastolic dysfunction. 7. Left atrial chamber dimension is mildly enlarged. 8. There is moderate aortic valve calcification. 9. The mitral valve has thickened leaflets and calcified annulus. 10. There is moderate mitral valve regurgitation. 11. Moderate pulmonary hy
--- NOTE | 2019-10-17 14:57 | PM.PNCARD ---
Progress Note: A&P Assessment and Plan (1) Elevated troponin: Code(s): R79.89 - Other specified abnormal findings of blood chemistry Status: Acute Assessment and Plan: thought most likely type 2 infarction rather than related to acute plaque rupture. continue supportive care. Known underlying CAD. (2) Coronary artery disease: Code(s): I25.10 - Atherosclerotic heart disease of [place] coronary artery without angina pectoris Status: Acute Assessment and Plan: known history of multiple stents. Continue aspirin 81 mg p.o. daily the hold Plavix for now given hemoptysis (3) Cardiac arrest due to respiratory disorder: Code(s): J98.9 - Respiratory disorder, unspecified; I46.8 - Cardiac arrest due to other underlying condition Status: Acute Assessment and Plan: Stable, extubated. Continue supportive care. Chest physiotherapy planned for suspicion for mucus plug. (4) Pulmonary edema: Qualifiers: Chronicity: acute Qualified Code(s): J81.0 - Acute pulmonary edema Code(s): J81.1 - Chronic pulmonary edema Status: Acute Assessment and Plan: COVID Negative. Diuresis held today. P.r.n. diuresis for now, but he will require moving forward. (5) Acute exacerbation of CHF (congestive heart failure): Code(s): I50.9 - Heart failure, unspecified Status: Acute Assessment and Plan: continue dobutamine for management of heart failure, declining urine output, renal failure. Monitor for tachyarrhythmias on dobutamine. Monitor and replete electrolytes as appropriate. Continue for another 24 hours. Attempt to discontinue Monday or Monday. (6) Acute on chronic renal failure: Code(s): N17.9 - Acute kidney failure, unspecified; N18.9 - Chronic kidney disease, unspecified Status: Acute Assessment and Plan: on dobutamine, slow improvement in renal function. Urine output stable. (7) Shock: Code(s): R57.9 - Shock, unspecified Status: Acute Assessment and Plan: Off pressors. Extubated. EF 20-25%. Subjective Date/time seen: date of service:10/17/19 14:57 Interval history: 84-year-old admitted for shortness of breath, hemoptysis , CHF. Status post arrest in ER Hemodynamically stable. Extubated yesterday. Diuresis held today. Remains on dobutamine. Patient feels tired, denies chest pain or significant shortness breath. States he is comfortable at this time. at bedside. Review of Systems Review of Systems: All systems reviewed & are unremarkable except as noted in HPI and below Constitutional: Constitutional: Reports fatigue and Reports weakness Eyes: Eyes: Denies blurry vision ENT: Denies lip swelling, Denies epistaxis and Denies neck pain Cardiovascular: Cardiovascular: Denies chest pain, Denies pedal edema and Reports dyspnea Respiratory: Respiratory: Denies cough, Denies hemoptysis and Denies dyspnea Gastrointestinal: Gastrointestinal: Denies abdominal pain and Denies vomiting Genitourinary: Genitourinary: Denies dysuria Musculoskeletal: Musculoskeletal: Denies neck pain Integumentary/Breasts: Skin/Breast: Denies dry skin Neurologic: Denies behavioral changes, Reports confusion and Reports weakness Psychiatric: Psychiatric: Reports confusion Endocrine: Endocrine: Reports fatigue Hematologic/Lymphatic: Hematologic/Lymphatic: Reports easy bleeding Allergic/Immunologic: Allergic/Immunologic: Denies lip swelling Exam Narrative: Exam Narrative: Fatigue, arousable alert, answers questions appropriately a and O x2, no apparent distress breathing comfortably. Const: General: comfortable HENMT: General nose exam: Normal nares present Eyes: Sclera: sclerae normal Neck: Neck: supple and no JVD Chest: Other: No chest wall deformities noted. Resp: Auscultation: diminished lung sounds Cardio: Rate: regular rate Other: Ectopy noted Sk
[2019-10-17] MEDS: ALBUTEROL SULFATE NEB 2.5 MG/0.5 ML INH INHALATION ×2 (15:18→21:05)
[2019-10-17] MEDS: IPRATROPIUM BR 0.02% INH SOLN 0.5 MG/2.5 ML VIAL INHALATION ×2 (15:18→21:05)
[2019-10-17] MEDS: ACETYLCYSTEINE 20% INHAL SOLN 800 MG/4 ML VIAL 200 MG INHALATION ×2 (15:18→21:05)
--- NOTE | 2019-10-17 16:05 | PM.IMPN ---
Progress Note: A&P Assessment and Plan (1) Acute hypoxemic respiratory failure: Code(s): J96.01 - Acute respiratory failure with hypoxia Status: Acute Assessment and Plan: Likely due to pulmonary edema and PNA. He was extubated yesterday. Has possible mucus plug or atelectasis on the left hemithorax, he is on bronchodilators. (2) Shock: Code(s): R57.9 - Shock, unspecified Status: Acute Assessment and Plan: Possible cardiogenic and septic. On dobutamine. On wide spectrum antibiotics for possible PNA. (3) Acute exacerbation of CHF (congestive heart failure): Code(s): I50.9 - Heart failure, unspecified Status: Acute Assessment and Plan: Ef noted to be around 20-25% systolic dysfunction. On dobutamine. (4) Pulmonary edema: Qualifiers: Chronicity: acute Qualified Code(s): J81.0 - Acute pulmonary edema Code(s): J81.1 - Chronic pulmonary edema Status: Acute Assessment and Plan: As detailed above. (5) Pneumonia: Qualifiers: Pneumonia type: due to unspecified organism Laterality: bilateral Lung location: lower lobe of lung Qualified Code(s): J18.9 - Pneumonia, unspecified organism Code(s): J18.9 - Pneumonia, unspecified organism Status: Acute Assessment and Plan: On levofloxacin, cefepime and vancomycin. (6) Hemoptysis: Code(s): R04.2 - Hemoptysis Status: Acute Assessment and Plan: This problem seems to be resolved now. Continue to monitor. (7) Suspected COVID-19 virus infection: Code(s): Z20.828 - Contact with and (suspected) exposure to other viral communicable diseases Status: Acute Assessment and Plan: Negative. (8) Chronic kidney disease, stage IV (severe): Code(s): N18.4 - Chronic kidney disease, stage 4 (severe) Status: Acute Assessment and Plan: May have acute injury on CKD, lasix is on hold now. Subjective Date/time seen: Extubated, seems slightly dyspneic still but otherwise in no acute distress. 10/17/19 16:05 Exam Const: General: no acute distress Other: Mild dyspnea Neck: Neck: supple and no JVD Resp: Other: Decreased breath sounds on the left, rhonchi on the right. Cardio: Rate: regular rate Rhythm: regular rhythm Other: No bradycardia or tachycardia. GI: Auscultation: normal bowel sounds Neuro: Motor exam (neuro): Normal motor muscle tone present throughout Other: Confused Extrem: General: edema Objective Data Vital Signs Vital Signs: Vital Signs - 24 hr 10/16/19 16:55 10/16/19 17:00 10/16/19 18:00 Temperature Pulse Rate 99 Respiratory Rate 25 H Blood Pressure 143/81 H Pulse Oximetry 88 L 95 99 10/16/19 20:00 10/16/19 20:53 10/16/19 21:01 Temperature 98.4 F Pulse Rate 108 H 90 94 Respiratory Rate 21 H 26 H 26 H Blood Pressure 162/63 H Pulse Oximetry 95 97 10/16/19 22:00 10/16/19 22:45 10/17/19 00:00 Temperature 98.1 F Pulse Rate 81 81 98 Respiratory Rate 26 H 26 H 25 H Blood Pressure 163/100 H 163/100 H 140/64 Pulse Oximetry 94 94 96 10/17/19 02:00 10/17/19 04:00 10/17/19 04:15 Temperature 98.2 F Pulse Rate 75 95 90 Respiratory Rate 25 H 26 H 25 H Blood Pressure 139/72 144/68 H Pulse Oximetry 100 95 94 10/17/19 04:51 10/17/19 06:00 10/17/19 07:00 Temperature Pulse Rate 79 90 88 Respiratory Rate 30 H Blood Pressure 144/68 H 155/56 H 139/65 Pulse Oximetry 97 10/17/19 08:00 10/17/19 10:00 10/17/19 10:10 Temperature 97.3 F L Pulse Rate 87 75 82 Respiratory Rate 34 H 27 H 28 H Blood Pressure 158/74 H 154/89 H Pulse Oximetry 98 96 10/17/19 12:00 10/17/19 14:00 10/17/19 15:19 Temperature 97.5 F L Pulse Rate 90 82 79 Respiratory Rate 26 H 24 H 27 H Blood Pressure 163/73 H 122/55 L Pulse Oximetry 91 98 Intake/Output Intake/Output: Intake & Output 10/14/19 10/15/19 10/16/19 10/17/19 23:59 23:
--- NOTE | 2019-10-17 17:24 | ECG_ITS ---
Measurements Intervals [place] Rate: 86 P: [place]: 0 QRS: -46 QRSD: 171 T: 145 QT: 422 QTc: 507 Interpretive Statements ELECTRONIC VENTRICULAR PACEMAKER WITH INHIBITION VENTRICULAR COUPLET AND VENTRICULAR PREMATURE COMPLEXES NO FURTHER INTERPRETATION IS POSSIBLE ABNORMAL ECG Electronically Signed On 10-18-2019 10:20:02 CDT by Jaime Fuchs D.O.
[2019-10-17 17:48] LABS: Alveolar/Arterial O2 Gradient 184.7 mmHg; Base Excess ABG -3.7 mEq/l (+/-2.0); Fractional Inspired Oxygen 40 %; Oxygen Content ABG 15.1 %vol (16.0-22.0); PCO2 ABG 27.4 mmHg (35.0-45.0); PO2 FiO2 Ratio Arterial Blood 1.73 %; Total Hemoglobin 11.5 g/dL (12.0-18.0); pH ABG 7.459 (7.350-7.450)
[2019-10-17 17:49] LABS: Device NASAL CANNULA; Modified Allen's Test Pass; Site Drawn LEFT RADIAL
[2019-10-17 18:18] LABS: Magnesium 2.4 mg/dL (1.6-2.3); Potassium 3.7 mmol/L (3.4-5.0)
[2019-10-17 18:52] LABS: Glucose Point of Care 185 (65-105)
[2019-10-17 23:00] LABS: Glucose Point of Care 325 (65-105)
[2019-10-18] VITALS (20 sets, daily range): BP systolic 139–177; BP diastolic 61–99; PULSE 73–107; RESP 18–29; TEMP 36.5–36.9; O2SAT 91–100
[2019-10-18] MEDS: hydrALAZINE HCL 20 MG/ML VIAL 10 MG IV PUSH (02:06)
[2019-10-18] MEDS: ALBUTEROL SULFATE NEB 2.5 MG/0.5 ML INH INHALATION ×4 (02:16→21:05)
[2019-10-18] MEDS: IPRATROPIUM BR 0.02% INH SOLN 0.5 MG/2.5 ML VIAL INHALATION ×4 (02:16→21:05)
[2019-10-18] MEDS: CENTRAL LINE FLUSH 10 ML IV PUSH ×6 (04:16→20:13)
[2019-10-18 05:06] LABS: Hematocrit 32.5 % (42.0-52.0); Hemoglobin 10.6 g/dL (14.0-18.0); Mean Corpuscular HGB Conc 32.6 g/dl (32-36); Mean Corpuscular Hemoglobin 31.4 pg (26-34); Mean Corpuscular Volume 96.2 fl (80-100); Mean Platelet Volume 10.9 fl (7.4-10.4); Platelet Count Result 164 k/mm3 (150-375); Red Blood Count 3.38 M/mm3 (4.6-6.20); Red Cell Distribution Width 13.8 % (11.5-14.5); White Blood Count 13.8 K/mm3 (4.5-10.0)
[2019-10-18 05:15] LABS: Anion Gap 11 mmol/L (8-16); Blood Urea Nitrogen 97 mg/dL (9-20); Carbon Dioxide 22 mmol/L (22-30); Chloride 101 mmol/L (98-107); Estimated CRCL calculation 26 ml/min; Estimated Glomerular Filt Rate 24; Glucose 328 mg/dL (75-110); Lactic Acid Reflex 1.8 mmol/L (0.7-2.1); Magnesium 2.4 mg/dL (1.6-2.3); Phosphorus 3.1 mg/dL (2.5-4.5); Potassium 3.8 mmol/L (3.4-5.0); Sodium 134 mmol/L (137-145)
[2019-10-18] MEDS: INSULIN ASPART (*BKC) 100 UNITS/ML SUB-Q ×3 (05:19→18:12)
[2019-10-18] MEDS: ASPIRIN 81 MG ENTERIC TABLET PO (09:08)
[2019-10-18] MEDS: TOLNAFTATE 1% POWDER 45 GM BTL 1 APPLIC TOPICAL ×2 (09:09→20:13)
[2019-10-18] MEDS: levoFLOXacin 250 MG/D5W 50 ML 250 MG/50 ML BAG 50 MG IVPB (09:09)
[2019-10-18] MEDS: INSULIN DETEMIR 100 UNITS/ML SUB-Q ×2 (09:09→20:11)
[2019-10-18] MEDS: ACETYLCYSTEINE 20% INHAL SOLN 800 MG/4 ML VIAL 200 MG INHALATION ×3 (09:48→21:06)
[2019-10-18] MEDS: DORNASE ALFA INH SOLN 1 MG/ML 2.5 ML AMP 2.5 MG INHALATION ×2 (09:48→21:06)
[2019-10-18] MEDS: DOBUTamine 250 MG/D5W 250 ML 250 MG/250 ML BAG 17.3 MG IV CONT (11:09)
--- NOTE | 2019-10-18 11:35 | PCOTNOTE ---
Attempted OT evaluation, per RN pt still has a femoral line. Will attempt at later time.
--- NOTE | 2019-10-18 11:37 | PCPTNOTE ---
Attempted PT eval. Pt has femoral line. Will try again at later time.
--- NOTE | 2019-10-18 12:04 | WPDINTPN ---
Progress Note: A&P Assessment and Plan (1) Acute respiratory failure: Code(s): J96.00 - Acute respiratory failure, unspecified whether with hypoxia or hypercapnia Status: Acute Assessment and Plan: patient with acute respiratory failure on admission, likely respiratory arrest from congestive heart failure, pneumonia, pulmonary edema and volume overload - patient was successfully extubated on 10/16/2019 - chest x-ray this morning shows much improvement on the left side ( 10/17/2019 chest x-ray showed complete left side opacification) - continue patient on Pulmozyme, Mucomyst inhalers and bronchodilators, also continue chest PT with percussion vest therapy - will continue to monitor chest x-rays - discussed with pulmonology will hold off bronchoscopy (2) Pneumonia: Qualifiers: Pneumonia type: due to unspecified organism Laterality: bilateral Lung location: lower lobe of lung Qualified Code(s): J18.9 - Pneumonia, unspecified organism Code(s): J18.9 - Pneumonia, unspecified organism Status: Acute Assessment and Plan: Bilateral airspace disease with hemoptysis. Continue empiric antibiotics with cefepime levofloxacin and vancomycin. Follow sputum and blood culture which are negative as of now Pulmonary following the patient HRCT done 10/14/2019: shows diffuse ground-glass opacities suggestive of pulmonary edema, left lower lobe consolidation/ atelectasis and left pleural effusion (3) Shock: Code(s): R57.9 - Shock, unspecified Status: Acute Assessment and Plan: improved and patient is off of vasopressors. likely septic and cardiogenic in nature monitor echocardiogram reviewed (4) Cardiac arrest due to respiratory disorder: Code(s): J98.9 - Respiratory disorder, unspecified; I46.8 - Cardiac arrest due to other underlying condition Status: Acute Assessment and Plan: Likely as a result of respiratory arrest. It is unclear the underlying rhythm during cardiac arrest. ROCS were achieved after 5 minutes. He was awake and following command and did not require hypothermia protocol. (5) Coronary artery disease: Code(s): I25.10 - Atherosclerotic heart disease of [place] coronary artery without angina pectoris Status: Acute Assessment and Plan: He has extensive cardiac history with 17 stents. Troponin has been elevated . Cardiology has been consulted and recommend conservative management at this time (6) Pulmonary edema: Qualifiers: Chronicity: acute Qualified Code(s): J81.0 - Acute pulmonary edema Code(s): J81.1 - Chronic pulmonary edema Status: Acute Assessment and Plan: Bilateral airspace disease with pink frothy secretion with some red blood as well. patient diuresed well approximately -5 L negative in cumulative fluid balance (7) Acute exacerbation of CHF (congestive heart failure): Code(s): I50.9 - Heart failure, unspecified Status: Acute Assessment and Plan: ECHO 10/13 shows moderate pulmonary hypertension and both systolic and diastolic congestive heart failure with EF of 20-25%. continue low-dose dobutamine infusion Summary 1. Complete two-dimensional, color flow and Doppler transthoracic echocardiogram is performed. 2. Left ventricular chamber dimension is moderately enlarged. 3. Left ventricular systolic function is severely reduced, estimated at 20-25%. 4. There is moderately increased left ventricular wall thickness. 5. Left ventricular septal wall motion is abnormal with septal motion related to pacing. 6. The left ventricular diastolic function is grade II diastolic dysfunction. 7. Left atrial chamber dimension is mildly enlarged. 8. There is moderate aortic valve calcification. 9. The mitral valve has thickened leaflets and calcified annulus. 10. There is moderate mitral valve regurgitation. 11. Moderate pulmo
--- NOTE | 2019-10-18 12:48 | P.PNNP_ITS ---
Progress Note: A&P Assessment and Plan (1) IMER (acute kidney injury): Code(s): N17.9 - Acute kidney failure, unspecified Status: Acute Assessment and Plan: * multifactorial ATN due to: - cardiac arrest - respiratory arrest - hemodynamic instability (shock) - acute infection (pneumonia?) * this is further complicated by his cardio-renal syndrome/physiology * no critical electrolytes at this time * making good urine output with IV diuretics and dobutamine gtt * follow repeat labs and UOP (2) Chronic kidney disease, stage 4 (severe): Code(s): N18.4 - Chronic kidney disease, stage 4 (severe) Status: Chronic Assessment and Plan: * baseline creatinine ~ 2.0 - 2.5mg/dl since as far back as 2017 * more recently, 2.4mg/dl as of August 2019 * due to DM, HTN, ANTHONY, vascular disease and likely chronic prerenal azotemia (from cardiorenal syndrome) (3) Acute hypoxemic respiratory failure: Code(s): J96.01 - Acute respiratory failure with hypoxia Status: Acute Assessment and Plan: * extubated * due to pneumonia +/- pulmonary edema * CT of chest results noted * Pulmonary following - may need bronchoscopy based on last imaging * on antibiotics * COVID-19 ruled out * continue diuretics (4) Cardiac arrest due to respiratory disorder: Code(s): J98.9 - Respiratory disorder, unspecified; I46.8 - Cardiac arrest due to other underlying condition Status: Acute Assessment and Plan: * presumably potentiated by respiratory failure * ROSC after ~ 5 minutes * continue supportive therapy (5) Acute exacerbation of CHF (congestive heart failure): Code(s): I50.9 - Heart failure, unspecified Status: Acute Assessment and Plan: * Echo results noted * on IV diuretics and dobutamine * follow I/Os and repeat labs * Cardiology following (6) Hemoptysis: Code(s): R04.2 - Hemoptysis Status: Acute Assessment and Plan: * due to edema and pneumonia * previous serological testing for CKD negative - however, consider re-checking given presentation (hemoptysis + IMER...etc) * appears to be clearing Will continue to follow. Subjective Date/time seen: 10/18/19 12:48 Respiratory status relatively stable on supplemetal oxygen; reasonably urine output with current therapy (diuretics and dobutamine gtt); no events/issues overnight or earlier this AM; no acute distress apparent. Exam Narrative: Exam Narrative: General: WD/WN male with on/off pain issues Heart: normal S1 and S2; no rub Lungs: coarse with bibasilar rhonchi Abdomen: soft, nontender, nondistended, positive bowel sounds Extremities: no cyanosis or clubbing; trace edema Skin: warm and intact Objective Data Vital Signs Vital Signs: Vital Signs Temp Pulse Resp BP Pulse Ox 10/18/19 12:00 101 H 25 H 159/73 H 92 10/18/19 11:09 81 144/66 H 10/18/19 10:15 89 20 10/18/19 10:00 74 23 H 161/99 H 100 10/18/19 09:50 74 18 95 10/18/19 08:00 36.6 C 84 25 H 163/61 H 97 10/18/19 06:00 74 20 139/94 H 100 10/18/19 04:00 36.9 C 89 23 H 160/70 H 96 10/18/19 02:19 90 29 H 10/18/19 02:10 90 29 H 10/18/19 02:00 79 18 177/69 H 96 10/18/19 00:00 36.7 C 107 H 20 165/78 H 98 10/17/19 22:00 85 30 H 139/85
--- NOTE | 2019-10-18 12:48 | PM.PNNEP ---
Progress Note: A&P Assessment and Plan (1) IMER (acute kidney injury): Code(s): N17.9 - Acute kidney failure, unspecified Status: Acute Assessment and Plan: multifactorial ATN due to: - cardiac arrest - respiratory arrest - hemodynamic instability (shock) - acute infection (pneumonia?) this is further complicated by his cardio-renal syndrome/physiology no critical electrolytes at this time making good urine output with IV diuretics and dobutamine gtt follow repeat labs and UOP (2) Chronic kidney disease, stage 4 (severe): Code(s): N18.4 - Chronic kidney disease, stage 4 (severe) Status: Chronic Assessment and Plan: baseline creatinine ~ 2.0 - 2.5mg/dl since as far back as 2018 more recently, 2.4mg/dl as of August 2019 due to DM, HTN, ANTHONY, vascular disease and likely chronic prerenal azotemia (from cardiorenal syndrome) (3) Acute hypoxemic respiratory failure: Code(s): J96.01 - Acute respiratory failure with hypoxia Status: Acute Assessment and Plan: extubated due to pneumonia +/- pulmonary edema CT of chest results noted Pulmonary following - may need bronchoscopy based on last imaging on antibiotics COVID-19 ruled out continue diuretics (4) Cardiac arrest due to respiratory disorder: Code(s): J98.9 - Respiratory disorder, unspecified; I46.8 - Cardiac arrest due to other underlying condition Status: Acute Assessment and Plan: presumably potentiated by respiratory failure ROSC after ~ 5 minutes continue supportive therapy (5) Acute exacerbation of CHF (congestive heart failure): Code(s): I50.9 - Heart failure, unspecified Status: Acute Assessment and Plan: Echo results noted on IV diuretics and dobutamine follow I/Os and repeat labs Cardiology following (6) Hemoptysis: Code(s): R04.2 - Hemoptysis Status: Acute Assessment and Plan: due to edema and pneumonia previous serological testing for CKD negative - however, consider re-checking given presentation (hemoptysis + IMER...etc) appears to be clearing Will continue to follow. Subjective Date/time seen: 10/18/19 12:48 Respiratory status relatively stable on supplemetal oxygen; reasonably urine output with current therapy (diuretics and dobutamine gtt); no events/issues overnight or earlier this AM; no acute distress apparent. Exam Narrative: Exam Narrative: General: WD/WN male with on/off pain issues Heart: normal S1 and S2; no rub Lungs: coarse with bibasilar rhonchi Abdomen: soft, nontender, nondistended, positive bowel sounds Extremities: no cyanosis or clubbing; trace edema Skin: warm and intact Objective Data Vital Signs Vital Signs: Vital Signs Temp Pulse Resp BP Pulse Ox 10/18/19 12:00 101 H 25 H 159/73 H 92 10/18/19 11:09 81 144/66 H 10/18/19 10:15 89 20 10/18/19 10:00 74 23 H 161/99 H 100 10/18/19 09:50 74 18 95 10/18/19 08:00 36.6 C 84 25 H 163/61 H 97 10/18/19 06:00 74 20 139/94 H 100 10/18/19 04:00 36.9 C 89 23 H 160/70 H 96 10/18/19 02:19 90 29 H 10/18/19 02:10 90 29 H 10/18/19 02:00 79 18 177/69 H 96 10/18/19 00:00 36.7 C 107 H 20 165/78 H 98 10/17/19 22:00 85 30 H 139/85 97 10/17/19 21:20 86 29 H 10/17/19 21:09 96 10/17/19 21:08 86 29 H 10/17/19 20:13 74 100/52 L 10/17/19 20:00 36.9 C 78 25 H 100/53 L 95 10/17/19 18:00 97 21 H 168/72 H 97 10/17/19 16:00 36.5 C 90 24 H 162/69 H 97 10/17/19 15:30 80 26 H 10/17/19 15:19 79 27 H 10/17/19 14:00 69 24 H 122/55 L 98 Intake/Output Intake/Output: Intake & Output 10/15/19 10/16/19 10/17/19 10/18/19 23:59 23:59 23:59 23:59 Intake Total 1350 1848.1 800 950.0 Output Total 2370 3600 3100 950 Balance -1020 -1751.9 -2300 0 Meds/Results Medications: Act
--- NOTE | 2019-10-18 13:24 | PCDIET ---
Nutrition Follow-Up Complete: Nutrition Diagnosis: Inadequate oral intake related to oral intubation as evidenced by NPO status. Nutrition Goal: Patient to meet estimated nutritional needs. Goal not met. However, MD has ordered bedside swallow evaluation for today. Will follow closely; if unable to safely advance diet or patient unable to tolerate, would consider resuming enteral feedings. Last recorded weight is 115.5 kg which is stable. Bowel Motility: Last documented BM on 10/14/19. Labs Reviewed: Hgb (10.6), Hct (32.5), Glu (328), BUN (97), Cr (2.6), Na (134) Meds Noted: Albuterol, Cefepime, Dobutamine, Fentanyl, Vancomycin, Novolog, Levemir, Atrovent, Levaquin Additional Notes: Documented maceration to bilateral groin. No other skin issues reported. Will continue to monitor with same goal. Nutrition Monitoring and Evaluation: Follow up every 3 days. Follow daily in ICU rounds.
[2019-10-18 13:28] LABS: Glucose Point of Care 287 (65-105)
--- NOTE | 2019-10-18 13:30 | PCOTNOTE ---
Attempted OT evaluation, per nursing patient has femoral line and is unable to participate in therapy at this time. Will continue to attempt.
--- NOTE | 2019-10-18 13:33 | PCPTNOTE ---
Continue to hold PT due to femoral line. Will try again tomorrow.
--- NOTE | 2019-10-18 14:17 | PM.PNCARD ---
Progress Note: A&P Assessment and Plan (1) Elevated troponin: Code(s): R79.89 - Other specified abnormal findings of blood chemistry Status: Acute Assessment and Plan: thought most likely type 2 infarction rather than related to acute plaque rupture. continue supportive care. Known underlying CAD. (2) Coronary artery disease: Code(s): I25.10 - Atherosclerotic heart disease of [place] coronary artery without angina pectoris Status: Acute Assessment and Plan: known history of multiple stents. Continue aspirin 81 mg p.o. daily the hold Plavix for now given hemoptysis (3) Cardiac arrest due to respiratory disorder: Code(s): J98.9 - Respiratory disorder, unspecified; I46.8 - Cardiac arrest due to other underlying condition Status: Acute Assessment and Plan: Stable, extubated. Continue supportive care. Chest physiotherapy, resp status improving. Per Critical Care Prognosis is poor, unfortunately. (4) Pulmonary edema: Qualifiers: Chronicity: acute Qualified Code(s): J81.0 - Acute pulmonary edema Code(s): J81.1 - Chronic pulmonary edema Status: Acute Assessment and Plan: COVID Negative. Diuresis held today. P.r.n. diuresis for now, but he will require moving forward. (5) Acute exacerbation of CHF (congestive heart failure): Code(s): I50.9 - Heart failure, unspecified Status: Acute Assessment and Plan: continue dobutamine for management of heart failure, maintaining negative fluid balance on Dobutamine. Will reassess tomorrow if able to discontinue. Monitor for tachyarrhythmias on dobutamine. Monitor and replete electrolytes as appropriate. Continue for another 24 hours. Attempt to discontinue Monday or Monday. (6) Acute on chronic renal failure: Code(s): N17.9 - Acute kidney failure, unspecified; N18.9 - Chronic kidney disease, unspecified Status: Acute Assessment and Plan: on dobutamine, very slow improvement in renal function high BUN persists. Urine output stable. (7) Shock: Code(s): R57.9 - Shock, unspecified Status: Acute Assessment and Plan: Resolved, off pressors. Extubated. EF 20-25%. Subjective Date/time seen: date of service:10/18/19 14:17 Interval history: 84-year-old admitted for shortness of breath, hemoptysis , CHF. Status post arrest in ER Hemodynamically stable. Extubated, complains of pain secondary to CPR and rib fractures. Chest physiotherapy. Diuresing on Dobutamine despite holding Lasix. Denies significant shortness breath. Freq ventricular ectopy but only occ brief NSVT. Review of Systems Review of Systems: All systems reviewed & are unremarkable except as noted in HPI and below Constitutional: Constitutional: Reports as per HPI, Reports fatigue and Reports weakness Eyes: Eyes: Reports as per HPI and Denies blurry vision ENT: Reports as per HPI, Denies lip swelling, Denies epistaxis and Denies neck pain Cardiovascular: Cardiovascular: Reports as per HPI, Reports chest pain, Denies pedal edema and Denies dyspnea Respiratory: Respiratory: Reports as per HPI, Denies cough, Denies hemoptysis and Denies dyspnea Gastrointestinal: Gastrointestinal: Reports as per HPI, Denies abdominal pain and Denies vomiting Genitourinary: Genitourinary: Reports as per HPI and Denies dysuria Musculoskeletal: Musculoskeletal: Reports as per HPI and Denies neck pain Integumentary/Breasts: Skin/Breast: Reports as per HPI and Denies dry skin Neurologic: Reports as per HPI, Reports confusion and Reports weakness Psychiatric: Psychiatric: Reports as per HPI and Reports confusion Endocrine: Endocrine: Reports fatigue Hematologic/Lymphatic: Hematologic/Lymphatic: Reports easy bleeding Allergic/Immunologic: Allergic/Immunologic: Denies lip swelling Exam Narrative: Exam Narrative: Fatigued, arousable alert, answers questions appropria
--- NOTE | 2019-10-18 14:41 | P.PNIM_ITS ---
Progress Note: A&P Assessment and Plan (1) Acute hypoxemic respiratory failure: Code(s): J96.01 - Acute respiratory failure with hypoxia Status: Acute Assessment and Plan: * Likely due to pulmonary edema and PNA. * He was extubated . * Has possible mucus plug or atelectasis on the left hemithorax which looks much better on chest x ray today. (2) Shock: Code(s): R57.9 - Shock, unspecified Status: Acute Assessment and Plan: * Possible cardiogenic and septic. * Off dobutamine. * On wide spectrum antibiotics for possible PNA. * Blood pressure more stable, plans to transfer him out form the ICU. (3) Acute exacerbation of CHF (congestive heart failure): Code(s): I50.9 - Heart failure, unspecified Status: Acute Assessment and Plan: * Ef noted to be around 20-25% systolic dysfunction. * Off dobutamine now. (4) Pulmonary edema: Qualifiers: Chronicity: acute Qualified Code(s): J81.0 - Acute pulmonary edema Code(s): J81.1 - Chronic pulmonary edema Status: Acute Assessment and Plan: * As detailed above. (5) Pneumonia: Qualifiers: Pneumonia type: due to unspecified organism Laterality: bilateral Lung location: lower lobe of lung Qualified Code(s): J18.9 - Pneumonia, unspecified organism Code(s): J18.9 - Pneumonia, unspecified organism Status: Acute Assessment and Plan: * On levofloxacin, cefepime and vancomycin. (6) Hemoptysis: Code(s): R04.2 - Hemoptysis Status: Acute Assessment and Plan: * This problem seems to be resolved now. * Pulmonary has been following. (7) Suspected COVID-19 virus infection: Code(s): Z20.828 - Contact with and (suspected) exposure to other viral communicable diseases Status: Acute Assessment and Plan: * Negative. (8) Chronic kidney disease, stage IV (severe): Code(s): N18.4 - Chronic kidney disease, stage 4 (severe) Status: Acute Assessment and Plan: * May have acute injury on CKD, likely ATN from cardiac arrest hypoperfusion, underlying infection. * Nephrology is following. Subjective Date/time seen: Extubated, not in distress but remains delirious. 10/18/19 14:41 Exam Const: General: no acute distress Neck: Neck: supple and no JVD Resp: Auscultation: rales Other: Decreased breath sounds on the left, rhonchi on the right. Cardio: Rate: regular rate Rhythm: regular rhythm Other: No bradycardia or tachycardia. GI: Auscultation: normal bowel sounds Urinary Catheter: Urinary Catheter: patent and draining Neuro: Motor exam (neuro): Normal motor muscle tone present throughout Other: Confused Extrem: General: edema Other: Non pitting edema in lower extremities. Objective Data Vital Signs Vital Signs: Vital Signs - 24 hr 10/17/19 15:19 10/17/19 15:30 10/17/19 16:00 Temperature 97.7 F Pulse Rate 79 80 90 Respiratory Rate 27 H 26 H 24 H Blood Pressure 162/69 H Pulse Oximetry 97 10/17/19 18:00 10/17/19 20:00 10/17/19 20:13 Temperature 98.4 F Pulse Rate 97 78 74 Respiratory Rate 21 H 25 H Blood Pressure 168/72 H 100/53 L 100/52 L Pulse Oximetry 97 95 10/17/19 21:08 10/17/19 21:09 10/17/19 21:20 Temp
--- NOTE | 2019-10-18 14:41 | PM.IMPN ---
Progress Note: A&P Assessment and Plan (1) Acute hypoxemic respiratory failure: Code(s): J96.01 - Acute respiratory failure with hypoxia Status: Acute Assessment and Plan: Likely due to pulmonary edema and PNA. He was extubated . Has possible mucus plug or atelectasis on the left hemithorax which looks much better on chest x ray today. (2) Shock: Code(s): R57.9 - Shock, unspecified Status: Acute Assessment and Plan: Possible cardiogenic and septic. Off dobutamine. On wide spectrum antibiotics for possible PNA. Blood pressure more stable, plans to transfer him out form the ICU. (3) Acute exacerbation of CHF (congestive heart failure): Code(s): I50.9 - Heart failure, unspecified Status: Acute Assessment and Plan: Ef noted to be around 20-25% systolic dysfunction. Off dobutamine now. (4) Pulmonary edema: Qualifiers: Chronicity: acute Qualified Code(s): J81.0 - Acute pulmonary edema Code(s): J81.1 - Chronic pulmonary edema Status: Acute Assessment and Plan: As detailed above. (5) Pneumonia: Qualifiers: Pneumonia type: due to unspecified organism Laterality: bilateral Lung location: lower lobe of lung Qualified Code(s): J18.9 - Pneumonia, unspecified organism Code(s): J18.9 - Pneumonia, unspecified organism Status: Acute Assessment and Plan: On levofloxacin, cefepime and vancomycin. (6) Hemoptysis: Code(s): R04.2 - Hemoptysis Status: Acute Assessment and Plan: This problem seems to be resolved now. Pulmonary has been following. (7) Suspected COVID-19 virus infection: Code(s): Z20.828 - Contact with and (suspected) exposure to other viral communicable diseases Status: Acute Assessment and Plan: Negative. (8) Chronic kidney disease, stage IV (severe): Code(s): N18.4 - Chronic kidney disease, stage 4 (severe) Status: Acute Assessment and Plan: May have acute injury on CKD, likely ATN from cardiac arrest hypoperfusion, underlying infection. Nephrology is following. Subjective Date/time seen: Extubated, not in distress but remains delirious. 10/18/19 14:41 Exam Const: General: no acute distress Neck: Neck: supple and no JVD Resp: Auscultation: rales Other: Decreased breath sounds on the left, rhonchi on the right. Cardio: Rate: regular rate Rhythm: regular rhythm Other: No bradycardia or tachycardia. GI: Auscultation: normal bowel sounds Urinary Catheter: Urinary Catheter: patent and draining Neuro: Motor exam (neuro): Normal motor muscle tone present throughout Other: Confused Extrem: General: edema Other: Non pitting edema in lower extremities. Objective Data Vital Signs Vital Signs: Vital Signs - 24 hr 10/17/19 15:19 10/17/19 15:30 10/17/19 16:00 Temperature 97.7 F Pulse Rate 79 80 90 Respiratory Rate 27 H 26 H 24 H Blood Pressure 162/69 H Pulse Oximetry 97 10/17/19 18:00 10/17/19 20:00 10/17/19 20:13 Temperature 98.4 F Pulse Rate 97 78 74 Respiratory Rate 21 H 25 H Blood Pressure 168/72 H 100/53 L 100/52 L Pulse Oximetry 97 95 10/17/19 21:08 10/17/19 21:09 10/17/19 21:20 Temperature Pulse Rate 86 86 Respiratory Rate 29 H 29 H Blood Pressure Pulse Oximetry 96 10/17/19 22:00 10/18/19 00:00 10/18/19 02:00 Temperature 98.1 F Pulse Rate 85 107 H 79 Respiratory Rate 30 H 20 18 Blood Pressure 139/85 165/78 H 177/69 H Pulse Oximetry 97 98 96 10/18/19 02:10 10/18/19 02:19 10/18/19 04:00 Temperature 98.5 F Pulse Rate 90 90 89 Respiratory Rate 29 H 29 H 23 H Blood Pressure 160/70 H Pulse Oximetry 96 10/18/19 06:00 10/18/19 08:00 10/18/19 09:50 Temperature 98 F Pulse Rate 74 84 74 Respiratory Rate 20 25 H 18 Blood Pressure 139/94 H 163/61 H Pulse Oximetry 100 97 95 10/18/19 10:00 10/18/19 10:15 10/18/19 11:09 Temper
--- NOTE | 2019-10-18 15:51 | PCSTNOTE ---
Attempted to see pt. for bedside swallow evaluation at 15:00 on 10/18/19. Per RN, pt. c/o significant pain. Pt. not appropriate for ST evaluation at this time. Will re-attempt when pt. is able.
[2019-10-18 17:47] LABS: Glucose Point of Care 298 (65-105)
[2019-10-18 20:26] LABS: Glucose Point of Care 291 (65-105)
[2019-10-19] VITALS (27 sets, daily range): BP systolic 132–149; BP diastolic 62–85; PULSE 71–107; RESP 20–34; TEMP 36.3–36.9; O2SAT 92–96
[2019-10-19 01:13] LABS: Glucose Point of Care 303 (65-105)
[2019-10-19] MEDS: INSULIN ASPART (*BKC) 100 UNITS/ML SUB-Q ×4 (01:16→17:09)
[2019-10-19] MEDS: IPRATROPIUM BR 0.02% INH SOLN 0.5 MG/2.5 ML VIAL INHALATION ×4 (02:12→21:10)
[2019-10-19] MEDS: ALBUTEROL SULFATE NEB 2.5 MG/0.5 ML INH INHALATION ×4 (02:12→21:09)
[2019-10-19] MEDS: DOBUTamine 250 MG/D5W 250 ML 250 MG/250 ML BAG 17.3 MG IV CONT ×2 (03:32→17:09)
[2019-10-19] MEDS: ACETYLCYSTEINE 20% INHAL SOLN 800 MG/4 ML VIAL 200 MG INHALATION ×4 (04:43→21:10)
[2019-10-19] MEDS: CENTRAL LINE FLUSH 10 ML IV PUSH ×5 (06:03→20:33)
[2019-10-19 06:12] LABS: Glucose Point of Care 266 (65-105)
[2019-10-19 06:24] LABS: Basophils Percent Auto 0.1 % (0.2-1.2); Eosinophils Percent Auto 0.2 % (0-4.4); Hematocrit 30.9 % (42.0-52.0); Hemoglobin 10.2 g/dL (14.0-18.0); Immature Granulocyte Absolute 0.18 K/mm3 (0.00-0.031); Immature Granulocyte Percent A 1.2 % (0-0.5); Lymphocytes Absolute Auto 0.78 K/mm3 (0.9-3.2); Lymphocytes Percent Auto 5.4 % (18.3-44.2); Mean Corpuscular Hemoglobin 31.3 pg (26-34); Mean Corpuscular Volume 94.8 fl (80-100); Mean Platelet Volume 10.6 fl (7.4-10.4); Monocytes Percent Auto 6.7 % (2.6-8.5); Neutrophils Absolute Auto 12.6 K/mm3 (1.3-6.7); Neutrophils Percent Auto 86.4 % (45.5-73.1); Platelet Count Result 188 k/mm3 (150-375); Red Blood Count 3.26 M/mm3 (4.6-6.20); Red Cell Distribution Width 13.8 % (11.5-14.5); White Blood Count 14.6 K/mm3 (4.5-10.0)
[2019-10-19 07:09] LABS: Anion Gap 7 mmol/L (8-16); Blood Urea Nitrogen 103 mg/dL (9-20); Calcium 9.3 mg/dL (8.4-10.2); Carbon Dioxide 25 mmol/L (22-30); Chloride 106 mmol/L (98-107); Estimated CRCL calculation 25 ml/min; Estimated Glomerular Filt Rate 24; Glucose 275 mg/dL (75-110); Magnesium 2.7 mg/dL (1.6-2.3); Phosphorus 3.6 mg/dL (2.5-4.5); Potassium 3.6 mmol/L (3.4-5.0); Sodium 138 mmol/L (137-145)
[2019-10-19] MEDS: DORNASE ALFA INH SOLN 1 MG/ML 2.5 ML AMP 2.5 MG INHALATION ×2 (08:22→21:09)
[2019-10-19] MEDS: TOLNAFTATE 1% POWDER 45 GM BTL 1 APPLIC TOPICAL ×2 (09:17→20:32)
[2019-10-19] MEDS: INSULIN DETEMIR 100 UNITS/ML SUB-Q ×2 (09:17→20:36)
--- NOTE | 2019-10-19 09:35 | PM.PNCARD ---
Progress Note: A&P Additional Plan follow-up visit in this elderly 84-year-old man with ischemic heart disease, obvious ischemic cardiomyopathy and congestive heart failure following admission apparently patient arrested in the emergency room on presentation. Primarily a respiratory event. He has been treated with low-dose dobutamine for inotropic support and has benefited well clinically he is not by physical exam significantly volume overloaded any longer although the chest x-ray still appears to be congested. Patient is not at all hypotensive medication for heart failure should be resumed at this time. Patient's renal insufficiency is at his baseline from what I can tell upon reviewing the chart. Will start back his carvedilol and will initiated CHF treatment with Entresto today as well. Long-term prognosis is obviously very guarded in this elderly gentleman with poor LV function Terry Saldivar MD [facility] Subjective Date/time seen: 10/19/19 09:35 Interval history: 84-year-old admitted for shortness of breath, hemoptysis , CHF. Status post arrest in ER Hemodynamically stable. Patient appears to be comfortable is not responding appropriately but appears to be in no distress. Exam Const: General: comfortable Other: Elderly gentleman in no distress but is arousable but does not respond appropriately. HENMT: Mouth: Yes dry mucous membranes Eyes: Sclera: sclerae normal Neck: Neck: supple and no JVD Other: Normal carotid upstrokes Resp: Effort & Inspection: normal respiratory effort Other: breath sounds relatively clear without anterior rales or wheezing. Cardio: Rate: regular rate Rhythm: regular rhythm Other: PMI is enlarged and laterally displaced GI: Auscultation: normal bowel sounds Skin: General skin exam: normal color Neuro: Cognition (Neuro): abnormal cognition Extrem: Other: no significant peripheral edema Objective Data Vital Signs Vital Signs: Vital Signs - 24 hr 10/18/19 09:50 10/18/19 10:00 10/18/19 10:15 Temperature Pulse Rate 74 74 89 Respiratory Rate 18 23 H 20 Blood Pressure 161/99 H Pulse Oximetry 95 100 10/18/19 11:09 10/18/19 12:00 10/18/19 14:00 Temperature Pulse Rate 81 101 H 90 Respiratory Rate 25 H Blood Pressure 144/66 H 159/73 H Pulse Oximetry 92 10/18/19 14:14 10/18/19 14:24 10/18/19 16:00 Temperature Pulse Rate 73 79 84 Respiratory Rate 22 H 21 H 25 H Blood Pressure 154/78 H Pulse Oximetry 94 10/18/19 18:00 10/18/19 20:00 10/18/19 21:06 Temperature 36.5 C Pulse Rate 78 83 90 Respiratory Rate 26 H 22 H Blood Pressure 149/64 H Pulse Oximetry 91 96 10/18/19 21:24 10/19/19 00:00 10/19/19 02:00 Temperature Pulse Rate 94 87 82 Respiratory Rate 24 H 26 H Blood Pressure 147/62 H Pulse Oximetry 93 10/19/19 02:12 10/19/19 02:25 10/19/19 04:00 Temperature 36.3 C L Pulse Rate 92 96 89 Respiratory Rate 25 H 26 H 24 H Blood Pressure 149/69 H Pulse Oximetry 94 10/19/19 04:50 10/19/19 06:00 10/19/19 07:43 Temperature 36.3 C L Pulse Rate 90 83 93 Respiratory Rate 30 H 28 H Blood Pressure 142/68 H Pulse Oximetry 94 10/19/19 08:00 10/19/19 08:22 10/19/19 08:25 Temperature Pulse Rate 82 79 102 H Respiratory Rate 20 21 H Blood Pressure Pulse Oximetry 95 10/19/19 08:39 Temperature Pulse Rate 90 Respiratory Rate 31 H Blood Pressure Pulse Oximetry Intake/Output Intake/Output: Intake & Output 10/16/19 10/17/19 10/18/19 10/19/19 23:59 23:59 23:59 23:59 Intake Total 1848.1 800 1245.0 297 Output Total 3600 3100 1650 800 Balance -1751.9 -2300 -405.0 -503 Meds/Results Medications: Active Medications Generic Name Dose Route Start Last Admin Trade Name Freq PRN Reason Stop Dose Admin Acetylcysteine 200 mg 10/17/19 14:00 10/19/19 08:21 Mucomyst 20% Inhal Soln INHALATION 200 mg Q6HRT ENRIQUETA Administration Albuterol 2.5 mg 10/17/19 14:00
[2019-10-19] MEDS: levoFLOXacin 250 MG/D5W 50 ML 250 MG/50 ML BAG 50 MG IVPB (09:49)
[2019-10-19] MEDS: ASPIRIN 81 MG ENTERIC TABLET PO (10:33)
[2019-10-19] MEDS: carvediloL 6.25 MG TABLET PO (10:33)
--- NOTE | 2019-10-19 11:04 | PCOTNOTE ---
Attempted OT evaluation this AM; per RN pt. is not following commands at this time. Not appropriate for therapy. Will attempt again tomorrow.
[2019-10-19 11:34] LABS: Glucose Point of Care 256 (65-105)
--- NOTE | 2019-10-19 11:34 | PCPTNOTE ---
Attempted PT evaluation this AM; pt is in ICU, discussed pt with LILI Ramirez. He stated pt is barely responding to his name and is not able to follow commands, lethargic and sleeping. HOLD PT evaluation this date.
--- NOTE | 2019-10-19 13:56 | PCSTNOTE ---
Evaluation unable to be completed due to patient condition; ST will attempt again for completion of BSS.
--- NOTE | 2019-10-19 15:42 | P.PNNP_ITS ---
Progress Note: A&P Assessment and Plan (1) IMER (acute kidney injury): Code(s): N17.9 - Acute kidney failure, unspecified Status: Acute Assessment and Plan: * multifactorial ATN due to: - cardiac arrest - respiratory arrest - hemodynamic instability (shock) - acute infection (pneumonia?) * this is further complicated by his cardio-renal syndrome/physiology * no critical electrolytes at this time * making good urine output with PRN IV diuretics and dobutamine gtt * follow repeat labs and UOP (2) Chronic kidney disease, stage 4 (severe): Code(s): N18.4 - Chronic kidney disease, stage 4 (severe) Status: Chronic Assessment and Plan: * baseline creatinine ~ 2.0 - 2.5mg/dl since as far back as 2017 * more recently, 2.4mg/dl as of August 2019 * due to DM, HTN, ANTHONY, vascular disease and likely chronic prerenal azotemia (from cardiorenal syndrome) (3) Acute hypoxemic respiratory failure: Code(s): J96.01 - Acute respiratory failure with hypoxia Status: Acute Assessment and Plan: * extubated * due to pneumonia +/- pulmonary edema * CT of chest results noted * Pulmonary following - may need bronchoscopy based on last imaging * on antibiotics * COVID-19 ruled out * continue diuretics (4) Cardiac arrest due to respiratory disorder: Code(s): J98.9 - Respiratory disorder, unspecified; I46.8 - Cardiac arrest due to other underlying condition Status: Acute Assessment and Plan: * presumably potentiated by respiratory failure * ROSC after ~ 5 minutes * continue supportive therapy (5) Acute exacerbation of CHF (congestive heart failure): Code(s): I50.9 - Heart failure, unspecified Status: Acute Assessment and Plan: * Echo results noted * on IV diuretics and dobutamine * follow I/Os and repeat labs * Cardiology following (6) Hemoptysis: Code(s): R04.2 - Hemoptysis Status: Acute Assessment and Plan: * due to edema and pneumonia * previous serological testing for CKD negative * appears to be clearing Will continue to follow. Subjective Date/time seen: 10/19/19 15:42 Respiratory status about the same; mental status seems to be fluctuating; cont inues to make reasonable urine output with current therapy; CXR results noted; remains hemodynamically stable. Exam Narrative: Exam Narrative: General: WD/WN male with on/off pain issues Heart: normal S1 and S2; no rub Lungs: coarse with bibasilar rhonchi Abdomen: soft, nontender, nondistended, positive bowel sounds Extremities: no cyanosis or clubbing; trace edema Skin: warm and intact Objective Data Vital Signs Vital Signs: Vital Signs Temp Pulse Resp BP Pulse Ox 10/19/19 14:06 107 H 34 H 10/19/19 13:58 84 34 H 10/19/19 13:56 81 10/19/19 12:00 72 10/19/19 11:37 36.6 C 71 20 135/85 96 10/19/19 10:33 75 10/19/19 10:00 104 H 10/19/19 08:39 90 31 H 10/19/19 08:25 102 H 21 H 95 10/19/19 08:22 79 20 10/19/19 08:00 82 10/19/19 07:43 36.3 C L 93 28 H 142/68 H 94 10/19/19 06:00 83 10/19/19 04:50 90 30 H 10/19/19 04:00 36.3 C L 89 24 H 149/69 H 94 10/19/19 02:25 96 26 H 10/19/19 02:12 92 25 H 10/19/19 02:00
--- NOTE | 2019-10-19 15:42 | PM.PNNEP ---
Progress Note: A&P Assessment and Plan (1) IMER (acute kidney injury): Code(s): N17.9 - Acute kidney failure, unspecified Status: Acute Assessment and Plan: multifactorial ATN due to: - cardiac arrest - respiratory arrest - hemodynamic instability (shock) - acute infection (pneumonia?) this is further complicated by his cardio-renal syndrome/physiology no critical electrolytes at this time making good urine output with PRN IV diuretics and dobutamine gtt follow repeat labs and UOP (2) Chronic kidney disease, stage 4 (severe): Code(s): N18.4 - Chronic kidney disease, stage 4 (severe) Status: Chronic Assessment and Plan: baseline creatinine ~ 2.0 - 2.5mg/dl since as far back as 2018 more recently, 2.4mg/dl as of August 2019 due to DM, HTN, ANTHONY, vascular disease and likely chronic prerenal azotemia (from cardiorenal syndrome) (3) Acute hypoxemic respiratory failure: Code(s): J96.01 - Acute respiratory failure with hypoxia Status: Acute Assessment and Plan: extubated due to pneumonia +/- pulmonary edema CT of chest results noted Pulmonary following - may need bronchoscopy based on last imaging on antibiotics COVID-19 ruled out continue diuretics (4) Cardiac arrest due to respiratory disorder: Code(s): J98.9 - Respiratory disorder, unspecified; I46.8 - Cardiac arrest due to other underlying condition Status: Acute Assessment and Plan: presumably potentiated by respiratory failure ROSC after ~ 5 minutes continue supportive therapy (5) Acute exacerbation of CHF (congestive heart failure): Code(s): I50.9 - Heart failure, unspecified Status: Acute Assessment and Plan: Echo results noted on IV diuretics and dobutamine follow I/Os and repeat labs Cardiology following (6) Hemoptysis: Code(s): R04.2 - Hemoptysis Status: Acute Assessment and Plan: due to edema and pneumonia previous serological testing for CKD negative appears to be clearing Will continue to follow. Subjective Date/time seen: 10/19/19 15:42 Respiratory status about the same; mental status seems to be fluctuating; continues to make reasonable urine output with current therapy; CXR results noted; remains hemodynamically stable. Exam Narrative: Exam Narrative: General: WD/WN male with on/off pain issues Heart: normal S1 and S2; no rub Lungs: coarse with bibasilar rhonchi Abdomen: soft, nontender, nondistended, positive bowel sounds Extremities: no cyanosis or clubbing; trace edema Skin: warm and intact Objective Data Vital Signs Vital Signs: Vital Signs Temp Pulse Resp BP Pulse Ox 10/19/19 14:06 107 H 34 H 10/19/19 13:58 84 34 H 10/19/19 13:56 81 10/19/19 12:00 72 10/19/19 11:37 36.6 C 71 20 135/85 96 10/19/19 10:33 75 10/19/19 10:00 104 H 10/19/19 08:39 90 31 H 10/19/19 08:25 102 H 21 H 95 10/19/19 08:22 79 20 10/19/19 08:00 82 10/19/19 07:43 36.3 C L 93 28 H 142/68 H 94 10/19/19 06:00 83 10/19/19 04:50 90 30 H 10/19/19 04:00 36.3 C L 89 24 H 149/69 H 94 10/19/19 02:25 96 26 H 10/19/19 02:12 92 25 H 10/19/19 02:00 82 10/19/19 00:00 87 26 H 147/62 H 93 10/18/19 21:24 94 24 H 10/18/19 21:06 90 22 H 96 10/18/19 20:00 36.5 C 83 26 H 149/64 H 91 10/18/19 18:00 78 10/18/19 16:00 84 25 H 154/78 H 94 Intake/Output Intake/Output: Intake & Output 10/16/19 10/17/19 10/18/19 10/19/19 23:59 23:59 23:59 23:59 Intake Total 1848.1 800 1245.0 497 Output Total 3600 3100 1650 800 Balance -1751.9 -2300 -405.0 -303 Meds/Results Medications: Active Medications Generic Name Dose Route Start Last Admin Trade Name Freq PRN Reason Stop Dose Admin Acetylcysteine 200 mg 10/17/19 14:00 10/19/19 13:55 Mucomyst 20% I
--- NOTE | 2019-10-19 16:57 | P.PNIM_ITS ---
Progress Note: A&P Assessment and Plan (1) Acute exacerbation of CHF (congestive heart failure): Code(s): I50.9 - Heart failure, unspecified Status: Acute Assessment and Plan: * Ef noted to be around 20-25% systolic dysfunction. * On dobutamine. * Renal function seems to be close to baseline we will resume lasix. * Yesterday his fluid balance was -405 cc (2) Acute hypoxemic respiratory failure: Code(s): J96.01 - Acute respiratory failure with hypoxia Status: Acute Assessment and Plan: * Likely due to pulmonary edema and PNA. * He was extubated . * Has possible mucus plug or atelectasis on the left hemithorax has resolved. (3) Pulmonary edema: Qualifiers: Chronicity: acute Qualified Code(s): J81.0 - Acute pulmonary edema Code(s): J81.1 - Chronic pulmonary edema Status: Acute Assessment and Plan: * As detailed above, we will resume lasix now that the blood pressure and the renal function seem stable. (4) Shock: Code(s): R57.9 - Shock, unspecified Status: Acute Assessment and Plan: * Possible cardiogenic and septic. * On wide spectrum antibiotics for possible PNA. * Blood pressure stable now. (5) Chronic kidney disease, stage IV (severe): Code(s): N18.4 - Chronic kidney disease, stage 4 (severe) Status: Acute Assessment and Plan: * May have acute injury on CKD, likely ATN from cardiac arrest hypoperfusion, underlying infection. * Nephrology is following. (6) Pneumonia: Qualifiers: Pneumonia type: due to unspecified organism Laterality: bilateral Lung location: lower lobe of lung Qualified Code(s): J18.9 - Pneumonia, unspecified organism Code(s): J18.9 - Pneumonia, unspecified organism Status: Acute Assessment and Plan: * On levofloxacin, cefepime and vancomycin. (7) Hemoptysis: Code(s): R04.2 - Hemoptysis Status: Acute Assessment and Plan: * This problem seems to be resolved now. * Pulmonary has been following. (8) Suspected COVID-19 virus infection: Code(s): Z20.828 - Contact with and (suspected) exposure to other viral communicable diseases Status: Acute Assessment and Plan: * Negative. Subjective Date/time seen: Not in distress but he remains delirious. 10/19/19 16:57 Exam Const: General: no acute distress Other: No dyspnea Neck: Neck: supple and no JVD Resp: Auscultation: rales Other: Decreased breath sounds and rhonchi. Cardio: Rate: regular rate Rhythm: regular rhythm Other: No bradycardia or tachycardia. GI: Auscultation: normal bowel sounds Urinary Catheter: Urinary Catheter: patent and draining Neuro: Motor exam (neuro): Normal motor muscle tone present throughout Other: Confused Extrem: General: edema Other: Non pitting edema in lower extremities. Objective Data Vital Signs Vital Signs: Vital Signs - 24 hr 10/18/19 18:00 10/18/19 20:00 10/18/19 21:06 Temperature 97.7 F Pulse Rate 78 83 90 Respiratory Rate 26 H 22 H Blood Pressure 149/64 H Pulse Oximetry 91 96 10/18/19 21:24 10/19/19 00:00 10/19/19 02:00 Temperature Pulse Rate 94 87 82 Respiratory Rate 24 H 26 H Blood Pressure 147/62 H Pulse Oximetry 93
--- NOTE | 2019-10-19 16:57 | PM.IMPN ---
Progress Note: A&P Assessment and Plan (1) Acute exacerbation of CHF (congestive heart failure): Code(s): I50.9 - Heart failure, unspecified Status: Acute Assessment and Plan: Ef noted to be around 20-25% systolic dysfunction. On dobutamine. Renal function seems to be close to baseline we will resume lasix. Yesterday his fluid balance was -405 cc (2) Acute hypoxemic respiratory failure: Code(s): J96.01 - Acute respiratory failure with hypoxia Status: Acute Assessment and Plan: Likely due to pulmonary edema and PNA. He was extubated . Has possible mucus plug or atelectasis on the left hemithorax has resolved. (3) Pulmonary edema: Qualifiers: Chronicity: acute Qualified Code(s): J81.0 - Acute pulmonary edema Code(s): J81.1 - Chronic pulmonary edema Status: Acute Assessment and Plan: As detailed above, we will resume lasix now that the blood pressure and the renal function seem stable. (4) Shock: Code(s): R57.9 - Shock, unspecified Status: Acute Assessment and Plan: Possible cardiogenic and septic. On wide spectrum antibiotics for possible PNA. Blood pressure stable now. (5) Chronic kidney disease, stage IV (severe): Code(s): N18.4 - Chronic kidney disease, stage 4 (severe) Status: Acute Assessment and Plan: May have acute injury on CKD, likely ATN from cardiac arrest hypoperfusion, underlying infection. Nephrology is following. (6) Pneumonia: Qualifiers: Pneumonia type: due to unspecified organism Laterality: bilateral Lung location: lower lobe of lung Qualified Code(s): J18.9 - Pneumonia, unspecified organism Code(s): J18.9 - Pneumonia, unspecified organism Status: Acute Assessment and Plan: On levofloxacin, cefepime and vancomycin. (7) Hemoptysis: Code(s): R04.2 - Hemoptysis Status: Acute Assessment and Plan: This problem seems to be resolved now. Pulmonary has been following. (8) Suspected COVID-19 virus infection: Code(s): Z20.828 - Contact with and (suspected) exposure to other viral communicable diseases Status: Acute Assessment and Plan: Negative. Subjective Date/time seen: Not in distress but he remains delirious. 10/19/19 16:57 Exam Const: General: no acute distress Other: No dyspnea Neck: Neck: supple and no JVD Resp: Auscultation: rales Other: Decreased breath sounds and rhonchi. Cardio: Rate: regular rate Rhythm: regular rhythm Other: No bradycardia or tachycardia. GI: Auscultation: normal bowel sounds Urinary Catheter: Urinary Catheter: patent and draining Neuro: Motor exam (neuro): Normal motor muscle tone present throughout Other: Confused Extrem: General: edema Other: Non pitting edema in lower extremities. Objective Data Vital Signs Vital Signs: Vital Signs - 24 hr 10/18/19 18:00 10/18/19 20:00 10/18/19 21:06 Temperature 97.7 F Pulse Rate 78 83 90 Respiratory Rate 26 H 22 H Blood Pressure 149/64 H Pulse Oximetry 91 96 10/18/19 21:24 10/19/19 00:00 10/19/19 02:00 Temperature Pulse Rate 94 87 82 Respiratory Rate 24 H 26 H Blood Pressure 147/62 H Pulse Oximetry 93 10/19/19 02:12 10/19/19 02:25 10/19/19 04:00 Temperature 97.4 F L Pulse Rate 92 96 89 Respiratory Rate 25 H 26 H 24 H Blood Pressure 149/69 H Pulse Oximetry 94 10/19/19 04:50 10/19/19 06:00 10/19/19 07:43 Temperature 97.4 F L Pulse Rate 90 83 93 Respiratory Rate 30 H 28 H Blood Pressure 142/68 H Pulse Oximetry 94 10/19/19 08:00 10/19/19 08:22 10/19/19 08:25 Temperature Pulse Rate 82 79 102 H Respiratory Rate 20 21 H Blood Pressure Pulse Oximetry 95 10/19/19 08:39 10/19/19 10:00 10/19/19 10:33 Temperature Pulse Rate 90 104 H 75 Respiratory Rate 31 H Blood Pressure Pulse Oximetry 10/19/19 11:37 10/19/19 12:0
[2019-10-19 17:02] LABS: Glucose Point of Care 240 (65-105)
--- NOTE | 2019-10-19 20:53 | PM.PNPUL ---
Progress Note: A&P Assessment and Plan (1) Acute hypoxemic respiratory failure: Code(s): J96.01 - Acute respiratory failure with hypoxia Status: Acute Assessment and Plan: Likely from bilateral pneumonia, probably aspiration in nature - broad spectrum antibiotics with Cefpime, Vancomcycin and Levaquin. - SARS-CoV-2 nasal swab negative -extubated, appears to be tolerating this, watching closely for any deterioration (2) Pneumonia: Qualifiers: Laterality: bilateral Lung location: lower lobe of lung Pneumonia type: due to unspecified organism Qualified Code(s): J18.9 - Pneumonia, unspecified organism Code(s): J18.9 - Pneumonia, unspecified organism Status: Acute Assessment and Plan: - stable pattern on CXR Subjective Date/time seen: 10/19/19 20:53 84 yo man is seen in follow up for acute respiratory failure due to hemoptysis, CHF, remains extubated, has not regained his cognitive baseline, appears to be comfortable. He is not speaking in full sentences or answering questions. Review of Systems Review of Systems: All systems reviewed & are unremarkable except as noted in HPI and below Exam Const: General: no acute distress Other: HENMT: Mouth: Yes moist mucous membranes Eyes: General: appearance normal, both eyes and all related structures Neck: Neck: supple and no JVD Resp: Auscultation: crackles (at bases ) bilateral Cardio: Rate: regular rate Rhythm: regular rhythm Heart sounds: no murmurs GI: Auscultation: normal bowel sounds Skin: General skin exam: normal color and no rashes or lesions noted Extrem: General: normal to inspection and edema (mild generalized edema) bilateral Objective Data Vital Signs Vital Signs: Vital Signs - 24 hr 10/18/19 21:06 10/18/19 21:24 10/19/19 00:00 Temperature Pulse Rate 90 94 87 Respiratory Rate 22 H 24 H 26 H Blood Pressure 147/62 H Pulse Oximetry 96 93 10/19/19 02:00 10/19/19 02:12 10/19/19 02:25 Temperature Pulse Rate 82 92 96 Respiratory Rate 25 H 26 H Blood Pressure Pulse Oximetry 10/19/19 04:00 10/19/19 04:50 10/19/19 06:00 Temperature 36.3 C L Pulse Rate 89 90 83 Respiratory Rate 24 H 30 H Blood Pressure 149/69 H Pulse Oximetry 94 10/19/19 07:43 10/19/19 08:00 10/19/19 08:22 Temperature 36.3 C L Pulse Rate 93 82 79 Respiratory Rate 28 H 20 Blood Pressure 142/68 H Pulse Oximetry 94 10/19/19 08:25 10/19/19 08:39 10/19/19 10:00 Temperature Pulse Rate 102 H 90 104 H Respiratory Rate 21 H 31 H Blood Pressure Pulse Oximetry 95 10/19/19 10:33 10/19/19 11:37 10/19/19 12:00 Temperature 36.6 C Pulse Rate 75 71 72 Respiratory Rate 20 Blood Pressure 135/85 Pulse Oximetry 96 10/19/19 13:56 10/19/19 13:58 10/19/19 14:06 Temperature Pulse Rate 81 84 107 H Respiratory Rate 34 H 34 H Blood Pressure Pulse Oximetry 10/19/19 15:58 10/19/19 17:09 10/19/19 18:00 Temperature 36.9 C Pulse Rate 72 74 74 Respiratory Rate 24 H Blood Pressure 148/75 H 148/75 H Pulse Oximetry 92 10/19/19 20:40 Temperature Pulse Rate 79 Respiratory Rate Blood Pressure Pulse Oximetry Intake/Output Intake/Output: Intake & Output 10/16/19 10/17/19 10/18/19 10/19/19 23:59 23:59 23:59 23:59 Intake Total 1848.1 800 1245.0 1365 Output Total 3600 3100 1650 1500 Balance -1751.9 -2300 -405.0 -135 Meds/Results Medications: Active Medications Generic Name Dose Route Start Last Admin Trade Name Freq PRN Reason Stop Dose Admin Acetylcysteine 200 mg 10/17/19 14:00 09/12/20 13:55 Mucomyst 20% Inhal Soln INHALATION 200 mg Q6HRT ENRIQUETA Administration Albuterol 2.5 mg 10/17/19 14:00 10/19/19 13:55 Albuterol Sulf Neb 2.5mg/0.5ml INHALATION 2.5 mg Q6HRT ENRIQUETA Administr
[2019-10-19 22:05] LABS: Glucose Point of Care 210 (65-105)
[2019-10-20] VITALS (25 sets, daily range): BP systolic 114–150; BP diastolic 59–90; PULSE 70–96; RESP 16–32; TEMP 35.8–36.5; O2SAT 93–97
[2019-10-20] MEDS: INSULIN ASPART (*BKC) 100 UNITS/ML SUB-Q ×4 (00:14→15:40)
[2019-10-20 00:16] LABS: Glucose Point of Care 247 (65-105)
[2019-10-20 00:37] LABS: Glucose Point of Care 292 (65-105)
[2019-10-20] MEDS: ALBUTEROL SULFATE NEB 2.5 MG/0.5 ML INH INHALATION ×4 (03:11→21:28)
[2019-10-20] MEDS: IPRATROPIUM BR 0.02% INH SOLN 0.5 MG/2.5 ML VIAL INHALATION ×4 (03:11→21:28)
[2019-10-20] MEDS: ACETYLCYSTEINE 20% INHAL SOLN 800 MG/4 ML VIAL 200 MG INHALATION ×3 (03:11→14:04)
--- NOTE | 2019-10-20 03:42 | PC.NURSE ---
This patient, Desean Montiel, was received from ICU 5 on 10/20/19 at 0018. Personal belongings list checked and signed. Patient/family oriented to unit policies and routines
[2019-10-20 05:26] LABS: Basophils Percent Auto 0.2 % (0.2-1.2); Eosinophils Absolute Auto 0.1 K/mm3 (0-0.3); Hematocrit 32.3 % (42.0-52.0); Hemoglobin 10.4 g/dL (14.0-18.0); Immature Granulocyte Absolute 0.29 K/mm3 (0.00-0.031); Immature Granulocyte Percent A 2.3 % (0-0.5); Lymphocytes Absolute Auto 1.07 K/mm3 (0.9-3.2); Lymphocytes Percent Auto 8.5 % (18.3-44.2); Mean Corpuscular HGB Conc 32.2 g/dl (32-36); Mean Corpuscular Hemoglobin 31.3 pg (26-34); Mean Corpuscular Volume 97.3 fl (80-100); Mean Platelet Volume 11.1 fl (7.4-10.4); Monocytes Absolute Auto 0.7 K/mm3 (0.1-0.6); Monocytes Percent Auto 5.9 % (2.6-8.5); Neutrophils Absolute Auto 10.4 K/mm3 (1.3-6.7); Neutrophils Percent Auto 82.1 % (45.5-73.1); Platelet Count Result 187 k/mm3 (150-375); Red Blood Count 3.32 M/mm3 (4.6-6.20); Red Cell Distribution Width 14.4 % (11.5-14.5); White Blood Count 12.6 K/mm3 (4.5-10.0)
[2019-10-20 05:37] LABS: Anion Gap 7 mmol/L (8-16); Blood Urea Nitrogen 107 mg/dL (9-20); Calcium 9.3 mg/dL (8.4-10.2); Carbon Dioxide 24 mmol/L (22-30); Chloride 108 mmol/L (98-107); Estimated CRCL calculation 25 ml/min; Estimated Glomerular Filt Rate 25; Glucose 237 mg/dL (75-110); Potassium 4.2 mmol/L (3.4-5.0); Sodium 139 mmol/L (137-145)
[2019-10-20] MEDS: CENTRAL LINE FLUSH 10 ML IV PUSH ×8 (06:42→21:41)
[2019-10-20 06:44] LABS: Glucose Point of Care 243 (65-105)
--- NOTE | 2019-10-20 07:42 | P.PNIM_ITS ---
Progress Note: A&P Assessment and Plan (1) Acute exacerbation of CHF (congestive heart failure): Code(s): I50.9 - Heart failure, unspecified Status: Acute Assessment and Plan: * Ef noted to be around 20-25% systolic dysfunction. * On dobutamine. * Renal function seems to be close to baseline we will increase lasix to q 8 HR.. * Yesterday his fluid balance was -272 ml (2) Acute hypoxemic respiratory failure: Code(s): J96.01 - Acute respiratory failure with hypoxia Status: Acute Assessment and Plan: * Likely due to pulmonary edema and PNA. * He was extubated . * Has possible mucus plug or atelectasis on the left hemithorax has resolved. (3) Delirium: Code(s): R41.0 - Disorientation, unspecified Status: Acute Assessment and Plan: * Most likely multifactorial due to hypoxia, PNA, ICU delirium. * Unclear what his baseline mental status is. I called the family with no answer yet, I will try to call again later. * Avoid medications with high anticholinergic burden. (4) Pulmonary edema: Qualifiers: Chronicity: acute Qualified Code(s): J81.0 - Acute pulmonary edema Code(s): J81.1 - Chronic pulmonary edema Status: Acute Assessment and Plan: * As detailed above, we will resume lasix and increase the dose now that the blood pressure and the renal function seem stable. (5) Type 2 diabetes mellitus: Code(s): E11.9 - Type 2 diabetes mellitus without complications Status: Acute Assessment and Plan: * Uncontrolled, we will modify the long acting insulin to 15 units daily . * Add 5 units of short acting insulin with meals plus correctional scale. (6) Shock: Code(s): R57.9 - Shock, unspecified Status: Acute Assessment and Plan: * Possible cardiogenic and septic. * On wide spectrum antibiotics for possible PNA. * Blood pressure stable now. (7) Chronic kidney disease, stage IV (severe): Code(s): N18.4 - Chronic kidney disease, stage 4 (severe) Status: Acute Assessment and Plan: * May have acute injury on CKD, likely ATN from cardiac arrest hypoperfusion, underlying infection. * Nephrology is following. (8) Pneumonia: Qualifiers: Pneumonia type: due to unspecified organism Laterality: bilateral Lung location: lower lobe of lung Qualified Code(s): J18.9 - Pneumonia, unspecified organism Code(s): J18.9 - Pneumonia, unspecified organism Status: Acute Assessment and Plan: * On levofloxacin, cefepime and vancomycin. (9) Hemoptysis: Code(s): R04.2 - Hemoptysis Status: Acute Assessment and Plan: * This problem seems to be resolved now. * Pulmonary has been following. (10) Suspected COVID-19 virus infection: Code(s): Z20.828 - Contact with and (suspected) exposure to other viral communicable diseases Status: Acute Assessment and Plan: * Negative. Subjective Date/time seen: He looks the same, not in distress but remains delirious. 10/20/19 07:42 Exam Const: General: no acute distress Other: No dyspnea Neck: Neck: supple and no JVD Resp: Auscultation: rales Other: Decreased breath sounds and rhonchi and rales. Cardio: Rate: regular rate Rhythm: regular rhythm Other: No bradycardia or tachycardia. GI: Auscultation: normal bowel sounds Urinary Catheter: Urinary Catheter: patent and draining Neuro: Motor exam (neuro): Normal motor mu
--- NOTE | 2019-10-20 07:42 | PM.IMPN ---
Progress Note: A&P Assessment and Plan (1) Acute exacerbation of CHF (congestive heart failure): Code(s): I50.9 - Heart failure, unspecified Status: Acute Assessment and Plan: Ef noted to be around 20-25% systolic dysfunction. On dobutamine. Renal function seems to be close to baseline we will increase lasix to q 8 HR.. Yesterday his fluid balance was -272 ml (2) Acute hypoxemic respiratory failure: Code(s): J96.01 - Acute respiratory failure with hypoxia Status: Acute Assessment and Plan: Likely due to pulmonary edema and PNA. He was extubated . Has possible mucus plug or atelectasis on the left hemithorax has resolved. (3) Delirium: Code(s): R41.0 - Disorientation, unspecified Status: Acute Assessment and Plan: Most likely multifactorial due to hypoxia, PNA, ICU delirium. Unclear what his baseline mental status is. I called the family with no answer yet, I will try to call again later. Avoid medications with high anticholinergic burden. (4) Pulmonary edema: Qualifiers: Chronicity: acute Qualified Code(s): J81.0 - Acute pulmonary edema Code(s): J81.1 - Chronic pulmonary edema Status: Acute Assessment and Plan: As detailed above, we will resume lasix and increase the dose now that the blood pressure and the renal function seem stable. (5) Type 2 diabetes mellitus: Code(s): E11.9 - Type 2 diabetes mellitus without complications Status: Acute Assessment and Plan: Uncontrolled, we will modify the long acting insulin to 15 units daily . Add 5 units of short acting insulin with meals plus correctional scale. (6) Shock: Code(s): R57.9 - Shock, unspecified Status: Acute Assessment and Plan: Possible cardiogenic and septic. On wide spectrum antibiotics for possible PNA. Blood pressure stable now. (7) Chronic kidney disease, stage IV (severe): Code(s): N18.4 - Chronic kidney disease, stage 4 (severe) Status: Acute Assessment and Plan: May have acute injury on CKD, likely ATN from cardiac arrest hypoperfusion, underlying infection. Nephrology is following. (8) Pneumonia: Qualifiers: Pneumonia type: due to unspecified organism Laterality: bilateral Lung location: lower lobe of lung Qualified Code(s): J18.9 - Pneumonia, unspecified organism Code(s): J18.9 - Pneumonia, unspecified organism Status: Acute Assessment and Plan: On levofloxacin, cefepime and vancomycin. (9) Hemoptysis: Code(s): R04.2 - Hemoptysis Status: Acute Assessment and Plan: This problem seems to be resolved now. Pulmonary has been following. (10) Suspected COVID-19 virus infection: Code(s): Z20.828 - Contact with and (suspected) exposure to other viral communicable diseases Status: Acute Assessment and Plan: Negative. Subjective Date/time seen: He looks the same, not in distress but remains delirious. 10/20/19 07:42 Exam Const: General: no acute distress Other: No dyspnea Neck: Neck: supple and no JVD Resp: Auscultation: rales Other: Decreased breath sounds and rhonchi and rales. Cardio: Rate: regular rate Rhythm: regular rhythm Other: No bradycardia or tachycardia. GI: Auscultation: normal bowel sounds Urinary Catheter: Urinary Catheter: patent and draining Neuro: Motor exam (neuro): Normal motor muscle tone present throughout Other: Confused Extrem: General: edema Other: Non pitting edema in lower extremities. Objective Data Vital Signs Vital Signs: Vital Signs - 24 hr 10/19/19 07:43 10/19/19 08:00 10/19/19 08:22 Temperature 97.4 F L Pulse Rate 93 82 79 Respiratory Rate 28 H 20 Blood Pressure 142/68 H Pulse Oximetry 94 10/19/19 08:25 10/19/19 08:39 10/19/19 10:00 Temperature Pulse Rate 102 H 90 104 H Respiratory Rate 21 H 31 H Blood Pressure Puls
[2019-10-20] MEDS: DORNASE ALFA INH SOLN 1 MG/ML 2.5 ML AMP 2.5 MG INHALATION ×2 (08:23→21:28)
[2019-10-20] MEDS: carvediloL 6.25 MG TABLET PO ×2 (09:47→21:40)
[2019-10-20] MEDS: SACUBITRIL/VALSARTAN 12-13 MG TABLET 1 TAB PO (09:47)
[2019-10-20] MEDS: ASPIRIN 81 MG ENTERIC TABLET PO (09:47)
[2019-10-20] MEDS: FUROSEMIDE INJ 40 MG/4 ML VIAL IV PUSH ×3 (09:49→21:40)
[2019-10-20] MEDS: LEVOTHYROXINE SODIUM 50 MCG TABLET PO (09:49)
[2019-10-20] MEDS: HEPARIN SODIUM 5,000 UNITS/ML VIAL 5000 UNITS SUB-Q ×2 (09:50→21:40)
[2019-10-20] MEDS: levoFLOXacin 250 MG/D5W 50 ML 250 MG/50 ML BAG 50 MG IVPB (09:50)
[2019-10-20] MEDS: INSULIN DETEMIR 100 UNITS/ML 15 UNITS SUB-Q (09:51)
[2019-10-20] MEDS: TOLNAFTATE 1% POWDER 45 GM BTL 1 APPLIC TOPICAL ×2 (09:51→21:42)
[2019-10-20] MEDS: TAMSULOSIN HCL 0.4 MG CAPSULE PO (09:51)
--- NOTE | 2019-10-20 10:35 | PCOTNOTE ---
Attempted OT evaluation this date; per RN pt. is not following commands at this time. Spoke with MD and agreed with HOLD order until he is medically stable and is able to follow commands.
--- NOTE | 2019-10-20 10:38 | PCPTNOTE ---
PT/OR order received days ago...patient has been delerious and unable to participate...spokle with covering MD and he will issue a HOLD PT/OR order until patient's medical situation improves and he is able to benefit from skilled therapy
--- NOTE | 2019-10-20 11:21 | PM.PNCARD ---
Progress Note: A&P Additional Plan Elderly gentleman with significant ischemic cardiomyopathy and CHF exacerbation. Respiratory arrest upon admission patient is now more stable hemodynamically a follow-up appears extremely weak. He has been on dobutamine now for almost a week I am going to stop that today. His blood pressure appears modestly elevated so I will continue to advance his heart failure medication and going to increase his Entresto dosage at this time. Long-term prognosis is very limited however Terry Saldivar MD [facility] Subjective Date/time seen: 10/20/19 11:21 Interval history: 84-year-old admitted for shortness of breath, hemoptysis , CHF. Status post arrest in ER Patient transferred out of ICU now on the floor. He is very weak but offers no cardiovascular complaints to denies any shortness of breath. Exam Const: General: comfortable and no acute distress Other: Very weak ill looking elderly man does respond when aroused but appears extremely weak HENMT: Mouth: Yes dry mucous membranes Eyes: Sclera: sclerae normal Pupils: Equal, round and reactive pupils present Neck: Neck: supple and no JVD Thyroid: thyroid normal Carotids: bruit Resp: Auscultation: clear to auscultation bilaterally and diminished lung sounds Other: Breath sounds are diminished but essentially clear Cardio: Rhythm: regular rhythm GI: Auscultation: normal bowel sounds Skin: General skin exam: normal color Neuro: Cognition (Neuro): abnormal cognition Objective Data Vital Signs Vital Signs: Vital Signs - 24 hr 10/19/19 11:37 10/19/19 12:00 10/19/19 13:56 Temperature 36.6 C Pulse Rate 71 72 81 Respiratory Rate 20 Blood Pressure 135/85 Pulse Oximetry 96 10/19/19 13:58 10/19/19 14:06 10/19/19 15:58 Temperature 36.9 C Pulse Rate 84 107 H 72 Respiratory Rate 34 H 34 H 24 H Blood Pressure 148/75 H Pulse Oximetry 92 10/19/19 17:09 10/19/19 18:00 10/19/19 20:00 Temperature 36.4 C L Pulse Rate 74 74 75 Respiratory Rate 24 H Blood Pressure 148/75 H 132/67 Pulse Oximetry 95 10/19/19 20:40 10/19/19 21:10 10/19/19 21:28 Temperature Pulse Rate 79 79 88 Respiratory Rate 22 H 22 H Blood Pressure Pulse Oximetry 10/19/19 22:00 10/20/19 00:28 10/20/19 00:29 Temperature 36.5 C Pulse Rate 77 70 83 Respiratory Rate 24 H Blood Pressure 146/79 H Pulse Oximetry 93 10/20/19 02:00 10/20/19 03:12 10/20/19 03:20 Temperature Pulse Rate 80 75 75 Respiratory Rate 20 20 Blood Pressure Pulse Oximetry 10/20/19 04:00 10/20/19 05:24 10/20/19 06:00 Temperature 36.5 C Pulse Rate 71 78 70 Respiratory Rate 20 Blood Pressure 150/65 H Pulse Oximetry 94 10/20/19 08:00 10/20/19 08:23 10/20/19 08:38 Temperature 35.9 C L Pulse Rate 74 74 76 Respiratory Rate 24 H 21 H 21 H Blood Pressure 144/66 H Pulse Oximetry 97 97 10/20/19 09:47 Temperature Pulse Rate 96 Respiratory Rate Blood Pressure Pulse Oximetry Intake/Output Intake/Output: Intake & Output 10/17/19 10/18/19 10/19/19 10/20/19 23:59 23:59 23:59 23:59 Intake Total 800 1245.0 1365 85 Output Total 3100 1650 1500 725 Balance -2300 -405.0 -135 -640 Meds/Results Medications: Active Medications Generic Name Dose Route Start Last Admin Trade Name Freq PRN Reason Stop Dose Admin Hydrocodone Bitart/Acetaminophen 1 tab 10/20/19 10:15 Maury 7.5-325 Mg PO Q4H PRN Pain Rated 4-6 Acetylcysteine 200 mg 10/17/19 14:00 10/20/19 08:23 Mucomyst 20% Inhal Soln INHALATION 200 mg Q6HRT ENRIQUETA Administration Albuterol 2.5 mg 10/17/19 14:00 10/20/19 08:23 Albuterol Sulf Neb 2.5mg/0.5ml INHALATION 2.5 mg Q6HRT ENRIQUETA Administration Aspirin 81 mg 10/15/19 09:00 10/20/19 09:47 Aspirin Ec PO 81 mg QAM ENRIQUETA Administration Carvedilol 6.25 mg 10/19/19 09:40 10/20/19 09:47 Coreg PO 6.25 mg Q12HR ENRIQUETA Administration Dextrose 12.
[2019-10-20 13:22] LABS: Glucose Point of Care 204 (65-105)
--- NOTE | 2019-10-20 17:31 | P.PNNP_ITS ---
Progress Note: A&P Assessment and Plan (1) IMER (acute kidney injury): Code(s): N17.9 - Acute kidney failure, unspecified Status: Acute Assessment and Plan: * multifactorial ATN due to: - cardiac arrest - respiratory arrest - hemodynamic instability (shock) - acute infection (pneumonia?) * this is further complicated by his cardio-renal syndrome/physiology * no critical electrolytes at this time but azotemia is noted * making good urine output (but now is off dobutamine gtt) * follow repeat labs and UOP (2) Chronic kidney disease, stage 4 (severe): Code(s): N18.4 - Chronic kidney disease, stage 4 (severe) Status: Chronic Assessment and Plan: * baseline creatinine ~ 2.0 - 2.5mg/dl since as far back as 2017 * more recently, 2.4mg/dl as of August 2019 * due to DM, HTN, ANTHONY, vascular disease and likely chronic prerenal azotemia (from cardiorenal syndrome) (3) Acute hypoxemic respiratory failure: Code(s): J96.01 - Acute respiratory failure with hypoxia Status: Acute Assessment and Plan: * resolving * extubated * due to pneumonia +/- pulmonary edema * CT of chest results noted * Pulmonary following * on antibiotics * COVID-19 ruled out * continue diuretics - consider decreasing frequency (4) Cardiac arrest due to respiratory disorder: Code(s): J98.9 - Respiratory disorder, unspecified; I46.8 - Cardiac arrest due to other underlying condition Status: Acute Assessment and Plan: * presumably potentiated by respiratory failure * ROSC after ~ 5 minutes * continue supportive therapy (5) Acute exacerbation of CHF (congestive heart failure): Code(s): I50.9 - Heart failure, unspecified Status: Acute Assessment and Plan: * Echo results noted * on IV diuretics and previously on dobutamine * follow I/Os and repeat labs * Cardiology following (6) Altered mental status: Code(s): R41.82 - Altered mental status, unspecified Status: Acute Assessment and Plan: * suspect delirium * however, given high BUN, cannot discount an element of uremia * follow mentation (7) Hemoptysis: Code(s): R04.2 - Hemoptysis Status: Acute Assessment and Plan: * due to edema and pneumonia * previous serological testing as part of CKD evaluation was negative * appears to be clearing Will continue to follow. Subjective Date/time seen: 10/20/19 17:31 He appears about the same as when I saw him yesterday -- mental status is not back to baseline as he remains quite confused; respiratory status appears stable. Exam Narrative: Exam Narrative: General: WD/WN male with on/off pain issues Heart: normal S1 and S2; no rub Lungs: coarse with bibasilar rhonchi Abdomen: soft, nontender, nondistended, positive bowel sounds Extremities: no cyanosis or clubbing; trace edema Skin: warm and dry Objective Data Vital Signs Vital Signs: Vital Signs Temp Pulse Resp BP Pulse Ox 10/20/19 14:15 77 16 10/20/19 14:04 76 16 10/20/19 14:00 75 10/20/19 12:00 36.2 C L 91 32 H 114/68 94 10/20/19 10:00 83 10/20/19 09:47 96 10/20/19 08:38 76 21 H 10/20/19 08:23 74 21 H 97 10/20/19 08:00 35.9 C L 72 24 H 144/66 H 97 10/20/19 06:00 70 10/20/19 05:24
--- NOTE | 2019-10-20 17:31 | PM.PNNEP ---
Progress Note: A&P Assessment and Plan (1) IMER (acute kidney injury): Code(s): N17.9 - Acute kidney failure, unspecified Status: Acute Assessment and Plan: multifactorial ATN due to: - cardiac arrest - respiratory arrest - hemodynamic instability (shock) - acute infection (pneumonia?) this is further complicated by his cardio-renal syndrome/physiology no critical electrolytes at this time but azotemia is noted making good urine output (but now is off dobutamine gtt) follow repeat labs and UOP (2) Chronic kidney disease, stage 4 (severe): Code(s): N18.4 - Chronic kidney disease, stage 4 (severe) Status: Chronic Assessment and Plan: baseline creatinine ~ 2.0 - 2.5mg/dl since as far back as 2017 more recently, 2.4mg/dl as of August 2019 due to DM, HTN, ANTHONY, vascular disease and likely chronic prerenal azotemia (from cardiorenal syndrome) (3) Acute hypoxemic respiratory failure: Code(s): J96.01 - Acute respiratory failure with hypoxia Status: Acute Assessment and Plan: resolving extubated due to pneumonia +/- pulmonary edema CT of chest results noted Pulmonary following on antibiotics COVID-19 ruled out continue diuretics - consider decreasing frequency (4) Cardiac arrest due to respiratory disorder: Code(s): J98.9 - Respiratory disorder, unspecified; I46.8 - Cardiac arrest due to other underlying condition Status: Acute Assessment and Plan: presumably potentiated by respiratory failure ROSC after ~ 5 minutes continue supportive therapy (5) Acute exacerbation of CHF (congestive heart failure): Code(s): I50.9 - Heart failure, unspecified Status: Acute Assessment and Plan: Echo results noted on IV diuretics and previously on dobutamine follow I/Os and repeat labs Cardiology following (6) Altered mental status: Code(s): R41.82 - Altered mental status, unspecified Status: Acute Assessment and Plan: suspect delirium however, given high BUN, cannot discount an element of uremia follow mentation (7) Hemoptysis: Code(s): R04.2 - Hemoptysis Status: Acute Assessment and Plan: due to edema and pneumonia previous serological testing as part of CKD evaluation was negative appears to be clearing Will continue to follow. Subjective Date/time seen: 10/20/19 17:31 He appears about the same as when I saw him yesterday -- mental status is not back to baseline as he remains quite confused; respiratory status appears stable. Exam Narrative: Exam Narrative: General: WD/WN male with on/off pain issues Heart: normal S1 and S2; no rub Lungs: coarse with bibasilar rhonchi Abdomen: soft, nontender, nondistended, positive bowel sounds Extremities: no cyanosis or clubbing; trace edema Skin: warm and dry Objective Data Vital Signs Vital Signs: Vital Signs Temp Pulse Resp BP Pulse Ox 10/20/19 14:15 77 16 10/20/19 14:04 76 16 10/20/19 14:00 75 10/20/19 12:00 36.2 C L 91 32 H 114/68 94 10/20/19 10:00 83 10/20/19 09:47 96 10/20/19 08:38 76 21 H 10/20/19 08:23 74 21 H 97 10/20/19 08:00 35.9 C L 72 24 H 144/66 H 97 10/20/19 06:00 70 10/20/19 05:24 78 10/20/19 04:00 36.5 C 71 20 150/65 H 94 10/20/19 03:20 75 20 10/20/19 03:12 75 20 10/20/19 02:00 80 10/20/19 00:29 83 10/20/19 00:28 36.5 C 70 24 H 146/79 H 93 10/19/19 22:00 77 10/19/19 21:28 88 22 H 10/19/19 21:10 79 22 H 10/19/19 20:40 79 10/19/19 20:00 36.4 C L 75 24 H 132/67 95 10/19/19 18:00 74 Intake/Output Intake/Output: Intake & Output 10/17/19 10/18/19 10/19/19 10/20/19 23:59 23:59 23:59 23:59 Intake Total 800 1245.0 1365 85 Output Total 3100 1650 1500 725 Balance -2120 -405.0 -135 -640 Meds/Results Medic
[2019-10-20 19:15] LABS: Glucose Point of Care 157 (65-105)
[2019-10-20] MEDS: SACUBITRIL/VALSARTAN 24-26 MG TABLET 1 TAB PO (21:40)
[2019-10-20 22:36] LABS: Vancomycin Trough 25.8 ug/mL (10.0-20.0)
[2019-10-21] VITALS (20 sets, daily range): BP systolic 104–150; BP diastolic 52–77; PULSE 67–89; RESP 18–32; TEMP 35.8–36.7; O2SAT 91–97
[2019-10-21 00:12] LABS: Glucose Point of Care 173 (65-105)
[2019-10-21] MEDS: ALBUTEROL SULFATE NEB 2.5 MG/0.5 ML INH INHALATION ×4 (03:03→19:18)
[2019-10-21] MEDS: IPRATROPIUM BR 0.02% INH SOLN 0.5 MG/2.5 ML VIAL INHALATION ×4 (03:03→19:18)
[2019-10-21] MEDS: FUROSEMIDE INJ 40 MG/4 ML VIAL IV PUSH ×3 (05:43→18:41)
[2019-10-21] MEDS: CENTRAL LINE FLUSH 10 ML IV PUSH ×8 (05:43→22:23)
[2019-10-21 06:07] LABS: Basophils Percent Auto 0.2 % (0.2-1.2); Eosinophils Absolute Auto 0.1 K/mm3 (0-0.3); Eosinophils Percent Auto 1.2 % (0-4.4); Hemoglobin 10.9 g/dL (14.0-18.0); Immature Granulocyte Absolute 0.16 K/mm3 (0.00-0.031); Immature Granulocyte Percent A 1.5 % (0-0.5); Lymphocytes Absolute Auto 1.09 K/mm3 (0.9-3.2); Lymphocytes Percent Auto 9.9 % (18.3-44.2); Mean Corpuscular HGB Conc 32.1 g/dl (32-36); Mean Corpuscular Volume 96.6 fl (80-100); Monocytes Absolute Auto 0.7 K/mm3 (0.1-0.6); Neutrophils Absolute Auto 8.9 K/mm3 (1.3-6.7); Neutrophils Percent Auto 81.2 % (45.5-73.1); Nucleated Red Blood Cells Perc 0.3 % (0.0-0.2); Platelet Count Result 220 k/mm3 (150-375); Red Blood Count 3.52 M/mm3 (4.6-6.20); Red Cell Distribution Width 14.3 % (11.5-14.5)
[2019-10-21 06:13] LABS: Anion Gap 11 mmol/L (8-16); Blood Urea Nitrogen 115 mg/dL (9-20); Calcium 9.1 mg/dL (8.4-10.2); Carbon Dioxide 24 mmol/L (22-30); Chloride 111 mmol/L (98-107); Estimated CRCL calculation 24 ml/min; Estimated Glomerular Filt Rate 23; Glucose 214 mg/dL (75-110); Potassium 3.8 mmol/L (3.4-5.0); Sodium 146 mmol/L (137-145)
--- NOTE | 2019-10-21 07:55 | P.PNIM_ITS ---
Progress Note: A&P Assessment and Plan (1) Acute exacerbation of CHF (congestive heart failure): Code(s): I50.9 - Heart failure, unspecified Status: Acute Assessment and Plan: * Ef noted to be around 20-25% systolic dysfunction. * Off dobutamine now. * Creatinine went up so we will decrease the lasix frequency to 40 mg BID. * Fluid balance was -2150 ml (2) Acute hypoxemic respiratory failure: Code(s): J96.01 - Acute respiratory failure with hypoxia Status: Acute Assessment and Plan: * Likely due to pulmonary edema and PNA. * He was extubated . * Has possible mucus plug or atelectasis on the left hemithorax has resolved. (3) Delirium: Code(s): R41.0 - Disorientation, unspecified Status: Acute Assessment and Plan: * Most likely multifactorial due to hypoxia, PNA, ICU delirium. * Unclear what his baseline mental status is. I called the family with no answer yet. * I will have a discussion with the about goals of care. * Ct of the head was negative for an acute process. * Avoid medications with high anticholinergic burden. (4) Pulmonary edema: Qualifiers: Chronicity: acute Qualified Code(s): J81.0 - Acute pulmonary edema Code(s): J81.1 - Chronic pulmonary edema Status: Acute Assessment and Plan: * As detailed above. (5) Type 2 diabetes mellitus: Code(s): E11.9 - Type 2 diabetes mellitus without complications Status: Acute Assessment and Plan: * Continue current management. * He is NPO due to delirium. (6) Shock: Code(s): R57.9 - Shock, unspecified Status: Acute Assessment and Plan: * Possible cardiogenic and septic. * On wide spectrum antibiotics for possible PNA. * Blood pressure stable now. (7) Chronic kidney disease, stage IV (severe): Code(s): N18.4 - Chronic kidney disease, stage 4 (severe) Status: Acute Assessment and Plan: * May have acute injury on CKD, likely ATN from cardiac arrest hypoperfusion, underlying infection. * Nephrology is following. (8) Pneumonia: Qualifiers: Pneumonia type: due to unspecified organism Laterality: bilateral Lung location: lower lobe of lung Qualified Code(s): J18.9 - Pneumonia, unspecified organism Code(s): J18.9 - Pneumonia, unspecified organism Status: Acute Assessment and Plan: * On levofloxacin, cefepime and vancomycin. (9) Hemoptysis: Code(s): R04.2 - Hemoptysis Status: Acute Assessment and Plan: * This problem seems to be resolved now. * Pulmonary has been following. (10) Suspected COVID-19 virus infection: Code(s): Z20.828 - Contact with and (suspected) exposure to other viral communicable diseases Status: Acute Assessment and Plan: * Negative. Subjective Date/time seen: Pt seen and examined, no change in clinical status, he seems in no distress but still having hypoactive delirium. 10/21/19 07:55 Exam Const: General: no acute distress Other: No dyspnea Neck: Neck: supple and no JVD Resp: Auscultation: rales Other: rhonchi and rales. Cardio: Rate: regular rate Rhythm: regular rhythm Other: No bradycardia or tachycardia. GI: Auscultation: normal bowel sounds Urinary Catheter: Urinary Catheter: patent and draining Neuro: Motor exam (neuro): Normal motor muscle tone present throughout Ot her: Confused, nodding yes or no with his head but unable to foll
--- NOTE | 2019-10-21 07:55 | PM.IMPN ---
Progress Note: A&P Assessment and Plan (1) Acute exacerbation of CHF (congestive heart failure): Code(s): I50.9 - Heart failure, unspecified Status: Acute Assessment and Plan: Ef noted to be around 20-25% systolic dysfunction. Off dobutamine now. Creatinine went up so we will decrease the lasix frequency to 40 mg BID. Fluid balance was -2150 ml (2) Acute hypoxemic respiratory failure: Code(s): J96.01 - Acute respiratory failure with hypoxia Status: Acute Assessment and Plan: Likely due to pulmonary edema and PNA. He was extubated . Has possible mucus plug or atelectasis on the left hemithorax has resolved. (3) Delirium: Code(s): R41.0 - Disorientation, unspecified Status: Acute Assessment and Plan: Most likely multifactorial due to hypoxia, PNA, ICU delirium. Unclear what his baseline mental status is. I called the family with no answer yet. I will have a discussion with the about goals of care. Ct of the head was negative for an acute process. Avoid medications with high anticholinergic burden. (4) Pulmonary edema: Qualifiers: Chronicity: acute Qualified Code(s): J81.0 - Acute pulmonary edema Code(s): J81.1 - Chronic pulmonary edema Status: Acute Assessment and Plan: As detailed above. (5) Type 2 diabetes mellitus: Code(s): E11.9 - Type 2 diabetes mellitus without complications Status: Acute Assessment and Plan: Continue current management. He is NPO due to delirium. (6) Shock: Code(s): R57.9 - Shock, unspecified Status: Acute Assessment and Plan: Possible cardiogenic and septic. On wide spectrum antibiotics for possible PNA. Blood pressure stable now. (7) Chronic kidney disease, stage IV (severe): Code(s): N18.4 - Chronic kidney disease, stage 4 (severe) Status: Acute Assessment and Plan: May have acute injury on CKD, likely ATN from cardiac arrest hypoperfusion, underlying infection. Nephrology is following. (8) Pneumonia: Qualifiers: Pneumonia type: due to unspecified organism Laterality: bilateral Lung location: lower lobe of lung Qualified Code(s): J18.9 - Pneumonia, unspecified organism Code(s): J18.9 - Pneumonia, unspecified organism Status: Acute Assessment and Plan: On levofloxacin, cefepime and vancomycin. (9) Hemoptysis: Code(s): R04.2 - Hemoptysis Status: Acute Assessment and Plan: This problem seems to be resolved now. Pulmonary has been following. (10) Suspected COVID-19 virus infection: Code(s): Z20.828 - Contact with and (suspected) exposure to other viral communicable diseases Status: Acute Assessment and Plan: Negative. Subjective Date/time seen: Pt seen and examined, no change in clinical status, he seems in no distress but still having hypoactive delirium. 10/21/19 07:55 Exam Const: General: no acute distress Other: No dyspnea Neck: Neck: supple and no JVD Resp: Auscultation: rales Other: rhonchi and rales. Cardio: Rate: regular rate Rhythm: regular rhythm Other: No bradycardia or tachycardia. GI: Auscultation: normal bowel sounds Urinary Catheter: Urinary Catheter: patent and draining Neuro: Motor exam (neuro): Normal motor muscle tone present throughout Other: Confused, nodding yes or no with his head but unable to follow more complicated commands. Extrem: General: edema Other: Non pitting edema in lower extremities. Objective Data Vital Signs Vital Signs: Vital Signs - 24 hr 10/20/19 08:00 10/20/19 08:23 10/20/19 08:38 Temperature 96.7 F L Pulse Rate 72 74 76 Respiratory Rate 24 H 21 H 21 H Blood Pressure 144/66 H Pulse Oximetry 97 97 10/20/19 09:47 10/20/19 10:00 10/20/19 12:00 Temperature 97.2 F L Pulse Rate 96 83 91 Respiratory Rate 32 H Blood Pressure 114/68 Pulse Oximetr
[2019-10-21] MEDS: TOLNAFTATE 1% POWDER 45 GM BTL 1 APPLIC TOPICAL ×2 (08:41→22:23)
[2019-10-21] MEDS: TAMSULOSIN HCL 0.4 MG CAPSULE PO (08:41)
[2019-10-21] MEDS: SACUBITRIL/VALSARTAN 24-26 MG TABLET 1 TAB PO (08:41)
[2019-10-21] MEDS: HEPARIN SODIUM 5,000 UNITS/ML VIAL 5000 UNITS SUB-Q ×2 (08:42→22:23)
[2019-10-21] MEDS: ASPIRIN 81 MG ENTERIC TABLET PO (08:42)
[2019-10-21] MEDS: carvediloL 6.25 MG TABLET PO (08:42)
[2019-10-21] MEDS: INSULIN DETEMIR 100 UNITS/ML 10 UNITS SUB-Q (09:03)
[2019-10-21] MEDS: DORNASE ALFA INH SOLN 1 MG/ML 2.5 ML AMP 2.5 MG INHALATION ×2 (09:05→19:18)
[2019-10-21] MEDS: levoFLOXacin 250 MG/D5W 50 ML 250 MG/50 ML BAG 50 MG IVPB (09:06)
[2019-10-21 10:45] LABS: Ammonia 11 umol/L (9-30)
--- NOTE | 2019-10-21 11:17 | WPDNEURCNPN ---
Assessment and Plan Assessment and plan (1) Altered mental status: Code(s): R41.82 - Altered mental status, unspecified Status: Acute (2) Delirium: Code(s): R41.0 - Disorientation, unspecified Status: Acute Additional Plan encephalopathy treatment needs to be continued as such further adjustment according Consult date: 10/21/19 Time Seen: 11:00 HPI: Desean Montiel is a 84 year old male admitted to the hospital through the emergency room for cough generalized weakness for oxygen saturations and in the emergency room the committing unconscious cyanotic for which required CPR subsequently blood pressure was stabilized but again dropped down. patient does have ongoing history of coronary artery disease, congestive heart failure, obstructive sleep apnea and chronic kidney disease stage 4 since admission head has been seen by the motorboat mechanic inboard as well for heart failure and medication have been adjusted. Head Wrestling Coach have also been involved for the acute hypoxemic respiratory failure attributed to bilateral pneumonia probably aspiration in nature pain at present being treated for the acute respiratory failure with hypoxia acute exacerbation of congestive heart failure possible COVID-19 ammonia level is 11 Review of Systems Review of Systems: All systems reviewed & are unremarkable except as noted in HPI and below PMFSH Past Medical History Medical History (Updated 10/20/19 @ 17:36 by Lisa Cody MD) Benign prostatic hyperplasia Chronic anemia Chronic kidney disease, stage 4 (severe) Baseline creatinine is around 2.40. Combined congestive systolic and diastolic heart failure With improved ejection fraction on echocardiogram in November 2014. Coronary artery disease With history of LA and multiple PCIs. Cyst of lateral meniscus DM w/o complication type II, uncontrolled Essential hypertension GI bleed (~04/2012) Due to internal hemorrhoid bleeding. Gout Hypothyroidism Male erectile disorder Mixed hyperlipidemia Obstructive sleep apnea on CPAP Paroxysmal atrial fibrillation Presence of biventricular cardiac pacemaker For symptomatic bradycardia. 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 Surgical History Surgical History History of appendectomy History of arthroplasty of right knee (~10/2011) History of cardiac catheterization With PTCA/ stent on multiple occasions. History of cardiac radiofrequency ablation History of cholecystectomy History of corneal transplant History of gastric bypass (~2006) History of surgery on arm Right arm ORIF after fracture. History of thoracotomy (~2008) Right-sided. Status post biventricular cardiac pacemaker insertion (~03/2012) For symptomatic bradycardia. Status post surgical removal of malignant neoplasm of skin Multiple excisions of squamous cell and basal cell carcinoma of the ears, face, and hand. Family History Family History Father Family history of elevated blood lipids Family history of cardiovascular disease Sibling Family history of cardiovascular disease, Onset Age: 48 Other Family history of arthritis Family history of congenital heart disease Family history of malignant neoplasm Social History Social History Social History: Surrogate decision maker: Claire, spouse. Code status: Full code Smoking packs per day: 2 Smoking cigarettes per day: 40.0 Years smoked: 18 Smoking pack-years: 36.00 Smoking status: Former smoker Tobacco type: cigarettes Smoking end date: 02/07/1968 Alcohol intake: never Substance use: never Additional living arrangements comments: Patient lives with his in
--- NOTE | 2019-10-21 11:25 | PM.PNPUL ---
Progress Note: A&P Assessment and Plan (1) Altered mental status: Qualifiers: Coma depth: Isha coma 9-12 Coma timing: unspecified coma timing Code(s): R41.82 - Altered mental status, unspecified Status: Acute Assessment and Plan: Being worked up. GCS is 10 [id number]. (2) Acute hypoxemic respiratory failure: Code(s): J96.01 - Acute respiratory failure with hypoxia Status: Acute Assessment and Plan: I've not seen the patient for many days. He's tachypnic and answers yes to dyspnea. He does not appear volume overloaded. CXR shows persistent bilateral airspace and interstial infiltrates. He's at high risk for respiratory failure, aspiration and sepsis. Continue to monitor closely. May need bronchscopy if he get's intubated. Subjective Date/time seen: 10/21/19 11:25 Interval history: Pt is tachpnic and opens eyes and squeeze my fingers to commands but not verbal when asked to produce his name. He is tachypnic into the 30's and appears short of breath. Review of Systems Review of Systems: All systems reviewed & are unremarkable except as noted in HPI and below Exam Const: General: in distress Other: tachpnic into 30's HENMT: Mouth: Yes moist mucous membranes Eyes: General: appearance normal, both eyes and all related structures Neck: Neck: supple and no JVD Resp: Auscultation: crackles (at bases ) bilateral Cardio: Rate: regular rate Rhythm: regular rhythm Heart sounds: no murmurs GI: Auscultation: normal bowel sounds Skin: General skin exam: normal color and no rashes or lesions noted Neuro: Speech: No normal speech Motor exam (neuro): Abnormal motor strength present Other: GCS is 10. Extrem: General: normal to inspection, no edema and no pedal edema Objective Data Vital Signs Vital Signs: Vital Signs - 24 hr 10/20/19 12:00 10/20/19 14:00 10/20/19 14:04 Temperature 36.2 C L Pulse Rate 91 75 76 Respiratory Rate 32 H 16 Blood Pressure 114/68 Pulse Oximetry 94 10/20/19 14:15 10/20/19 16:00 10/20/19 18:00 Temperature 35.8 C L Pulse Rate 77 71 77 Respiratory Rate 16 32 H Blood Pressure 133/59 L Pulse Oximetry 97 10/20/19 20:00 10/20/19 21:29 10/20/19 21:40 Temperature 36.2 C L Pulse Rate 74 75 88 Respiratory Rate 22 H 22 H Blood Pressure 145/90 H Pulse Oximetry 97 10/20/19 21:41 10/20/19 22:00 10/20/19 23:55 Temperature Pulse Rate 73 78 76 Respiratory Rate 22 H 22 H Blood Pressure Pulse Oximetry 97 10/21/19 00:00 10/21/19 02:00 10/21/19 03:03 Temperature 36.1 C L Pulse Rate 73 76 74 Respiratory Rate 22 H 20 Blood Pressure 133/68 Pulse Oximetry 96 10/21/19 03:10 10/21/19 04:00 10/21/19 06:00 Temperature 36.2 C L Pulse Rate 75 78 76 Respiratory Rate 20 22 H Blood Pressure 138/70 Pulse Oximetry 93 10/21/19 08:00 10/21/19 08:42 10/21/19 09:05 Temperature 35.8 C L Pulse Rate 67 74 74 Respiratory Rate 20 18 Blood Pressure 133/77 Pulse Oximetry 93 10/21/19 09:13 10/21/19 09:17 Temperature Pulse Rate 76 Respiratory Rate 18 Blood Pressure Pulse Oximetry 94 Intake/Output Intake/Output: Intake & Output 10/18/19 10/19/19 10/20/19 10/21/19 23:59 23:59 23:59 23:59 Intake Total 1245.0 1365 185 Output Total 1650 1500 2075 900 Balance -405.0 -135 -1890 -900 Meds/Results Medications: Active Medications Generic Name Dose Route Start Last Admin Trade Name Freq PRN Reason Stop Dose Admin Hydrocodone Bitart/Acetaminophen 1 tab 10/20/19 10:15 10/21/19 08:43 [place] 7.5-325 Mg PO 1 tab Q4H PRN Administration Pain Rated 4-6 Albuterol 2.5 mg 10/17/19 14:00 10/21/19 09:05 Albuterol Sulf Neb 2.5mg/0.5ml INHALATION 2.5 mg Q6HRT ENRIQUETA Administration Aspirin 81 mg 10/15/19 09:00 10/21/19 08:42 Aspirin Ec PO 81 mg QAM ENRIQUETA Administration Carvedilol 6.25 mg 10/19/19 09:40 09/14/20 08:42 Coreg PO 6
[2019-10-21 12:14] LABS: Glucose Point of Care 225 (65-105)
--- NOTE | 2019-10-21 13:11 | PM.PNCARD ---
Progress Note: A&P Additional Plan 84-year-old man with longstanding coronary disease, significant ischemic cardiomyopathy who had an arrest in the emergency room at the beginning of this hospitalization. He did not lose his rhythm appeared to be primarily a respiratory event. Following a prolonged ventilator run he is hemodynamically stable and is oxygenating but is clearly worse regarding his mental status and is not very responsive I know him see this man in my office for many years his mental status is usually normal. He has been placed on appropriate treatment for his ischemic myopathy his blood pressure has tolerated institution of metoprolol and advancement in his Entresto dosage. I do not believe any further medical adjustments are necessary today. It seems that his prognosis for good recovery is poor and family is understandably having difficulty deciding regarding hospice services as this gentleman was not in this condition before this hospitalization Terry Saldivar MD [facility] Subjective Date/time seen: Date of service: 10/21/19 13:11 Interval history: 84-year-old admitted for shortness of breath, hemoptysis , CHF. Status post arrest in ER Patient has been on the floor for the last couple of days. Does not offer any 6 complaints of shortness of breath upon arising but is lethargic and somewhat delusional and very difficult to arouse both yesterday and today. Apparently conversations have been a ongoing between hospitalist service and family regarding consideration of hospice services. Patient is tachypneic but is not reporting dyspnea Exam Const: General: no acute distress Other: Chronically ill elderly man semi responsive upon awakening a reports no distress but is very lethargic and somewhat delusional. HENMT: Mouth: Yes dry mucous membranes Eyes: Sclera: sclerae normal Neck: Neck: no JVD Other: No carotid bruits normal carotid pulses. Resp: Effort & Inspection: normal respiratory effort Auscultation: clear to auscultation bilaterally Other: Breath sounds are essentially clear anteriorly I do not hear any rales or rhonchi difficult to sit him up for posterior auscultation Cardio: Rate: regular rate Rhythm: regular rhythm Other: Paced rhythm GI: Auscultation: normal bowel sounds Skin: General skin exam: normal color Neuro: Cognition (Neuro): abnormal cognition Other: As stated above very poorly responsive and somewhat encephalopathic Extrem: Other: Modest chronic bipedal edema Objective Data Vital Signs Vital Signs: Vital Signs - 24 hr 10/20/19 14:00 10/20/19 14:04 10/20/19 14:15 Temperature Pulse Rate 75 76 77 Respiratory Rate 16 16 Blood Pressure Pulse Oximetry 10/20/19 16:00 10/20/19 18:00 10/20/19 20:00 Temperature 35.8 C L 36.2 C L Pulse Rate 71 77 74 Respiratory Rate 32 H 22 H Blood Pressure 133/59 L 145/90 H Pulse Oximetry 97 97 10/20/19 21:29 10/20/19 21:40 10/20/19 21:41 Temperature Pulse Rate 75 88 73 Respiratory Rate 22 H 22 H Blood Pressure Pulse Oximetry 10/20/19 22:00 10/20/19 23:55 10/21/19 00:00 Temperature 36.1 C L Pulse Rate 78 76 73 Respiratory Rate 22 H 22 H Blood Pressure 133/68 Pulse Oximetry 97 96 10/21/19 02:00 10/21/19 03:03 10/21/19 03:10 Temperature Pulse Rate 76 74 75 Respiratory Rate 20 20 Blood Pressure Pulse Oximetry 10/21/19 04:00 10/21/19 06:00 10/21/19 08:00 Temperature 36.2 C L 35.8 C L Pulse Rate 78 76 78 Respiratory Rate 22 H 20 Blood Pressure 138/70 133/77 Pulse Oximetry 93 93 10/21/19 08:42 10/21/19 09:05 10/21/19 09:13 Temperature Pulse Rate 74 74 Respiratory Rate 18 Blood Pressure Pulse Oximetry 94 10/21/19 09:17 10/21/19 10:00 10/21/19 12:00 Temperature 35.8 C L Pulse Rate 76 75 71 Respiratory Rate 18 20 Blood Pressure 138/76 Pulse Oximetry 94 Intake/Output Intake/Output: Intake & Output 10/18/19 10/19/19 10/20/19
--- NOTE | 2019-10-21 14:09 | PCDIET ---
Nutrition Follow-Up Complete: Nutrition Diagnosis: Inadequate oral intake related to oral intubation as evidenced by NPO status. Nutrition Goal: Patient to meet estimated nutritional needs. Goal not met. Patient remains NPO due to lethargy and delirium. MD discussing hospice with family. If aggressive nutritional therapy is desired, recommend feeding tube placement and initiation of enteral nutrition. In mean time, would consider IV hydration. Last recorded weight is 103.9 kg which is down from last review. Bowel Motility: Last documented BM on 10/14/19. If medically appropriate, would consider medication to promote BM. Labs Reviewed: Hgb (10.9), Hct (34.0), Glu (214), BUN (115), Cr (2.7), Cl (111), Na (146) Meds Noted: [place], Albuterol, Cefepime, Atrovent, Fentanyl, Lasix, Novolog, Levemir, Levaquin, Vancomycin Additional Notes: Bilateral groin macerated. Will continue to monitor with same goal. Nutrition Monitoring and Evaluation: Follow up every 3 days. Follow daily in ICU rounds.
[2019-10-21] MEDS: INSULIN ASPART (*BKC) 100 UNITS/ML SUB-Q ×3 (15:31→23:46)
--- NOTE | 2019-10-21 16:53 | P.PNNP_ITS ---
Progress Note: A&P Assessment and Plan (1) IMER (acute kidney injury): Code(s): N17.9 - Acute kidney failure, unspecified Status: Acute Assessment and Plan: * multifactorial ATN due to: - cardiac arrest - respiratory arrest - hemodynamic instability (shock) - acute infection (pneumonia?) * he has underlying chronic kidney disease due to cardiorenal syndrome * baseline creatinine seems to be about 2.5 or so. * he had a creatinine of 3.4 and has improved to almost baseline. * volume status always looks wet. balance the volume overload with uremia (2) Chronic kidney disease, stage 4 (severe): Code(s): N18.4 - Chronic kidney disease, stage 4 (severe) Status: Chronic Assessment and Plan: * baseline creatinine ~ 2.0 - 2.5mg/dl since as far back as 2017 * more recently, 2.4mg/dl as of August 2019 * due to DM, HTN, ANTHONY, vascular disease and likely chronic prerenal azotemia (from cardiorenal syndrome) (3) Acute hypoxemic respiratory failure: Code(s): J96.01 - Acute respiratory failure with hypoxia Status: Acute Assessment and Plan: * resolving * extubated * due to pneumonia +/- pulmonary edema * CT of chest results noted * Pulmonary following * on antibiotics * COVID-19 ruled out * continue diuretics - consider decreasing frequency (4) Cardiac arrest due to respiratory disorder: Code(s): J98.9 - Respiratory disorder, unspecified; I46.8 - Cardiac arrest due to other underlying condition Status: Acute Assessment and Plan: * presumably potentiated by respiratory failure * continue supportive therapy (5) Acute exacerbation of CHF (congestive heart failure): Code(s): I50.9 - Heart failure, unspecified Status: Acute Assessment and Plan: * Echo shows 20-25% ef and pulmonary hypertension * on IV furosemide bid * follow I/Os and repeat labs * Cardiology following (6) Altered mental status: Qualifiers: Coma depth: [place] coma 9-12 Coma timing: unspecified coma timing Code(s): R41.82 - Altered mental status, unspecified Status: Acute Assessment and Plan: * suspect delirium * however, given high BUN, cannot discount an element of uremia * follow mentation (7) Hemoptysis: Code(s): R04.2 - Hemoptysis Status: Acute Assessment and Plan: * due to edema and pneumonia * previous serological testing as part of CKD evaluation was negative * appears to be clearing Subjective Date/time seen: 10/21/19 16:53 Interval history: patient is weak and tired. in room. no cp or sob. not eating great. Review of Systems Cardiovascular: Cardiovascular: Reports no additional cardiovascular complaints Respiratory: Respiratory: Reports no additional respiratory complaints Gastrointestinal: Gastrointestinal: Reports no additional gastrointestinal complaints Genitourinary: Genitourinary: Reports no additional male genitourinary complaints Exam Narrative: Exam Narrative: WDWN in NAD weak looking overall skin no rash head ncat lungs clear cor reg no rub abd BS+ nontender and soft ext no edema. Objective Data Vital Signs Vital Signs: Vital Signs - 24 hr 10/20/19 18:00 10/20/19 20:00 10/20/19 21:29 Temperature 36.2 C L Pulse Rate 77 74 75 R
--- NOTE | 2019-10-21 16:53 | PM.PNNEP ---
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 he had a creatinine of 3.4 and has improved to almost baseline. volume status always looks wet. balance the volume overload with uremia (2) Chronic kidney disease, stage 4 (severe): Code(s): N18.4 - Chronic kidney disease, stage 4 (severe) Status: Chronic Assessment and Plan: baseline creatinine ~ 2.0 - 2.5mg/dl since as far back as 2017 more recently, 2.4mg/dl as of August 2019 due to DM, HTN, [place], vascular disease and likely chronic prerenal azotemia (from cardiorenal syndrome) (3) Acute hypoxemic respiratory failure: Code(s): J96.01 - Acute respiratory failure with hypoxia Status: Acute Assessment and Plan: resolving extubated due to pneumonia +/- pulmonary edema CT of chest results noted Pulmonary following on antibiotics COVID-19 ruled out continue diuretics - consider decreasing frequency (4) Cardiac arrest due to respiratory disorder: Code(s): J98.9 - Respiratory disorder, unspecified; I46.8 - Cardiac arrest due to other underlying condition Status: Acute Assessment and Plan: presumably potentiated by respiratory failure continue supportive therapy (5) Acute exacerbation of CHF (congestive heart failure): Code(s): I50.9 - Heart failure, unspecified Status: Acute Assessment and Plan: Echo shows 20-25% ef and pulmonary hypertension on IV furosemide bid follow I/Os and repeat labs Cardiology following (6) Altered mental status: Qualifiers: Coma depth: [place] coma 9-12 Coma timing: unspecified coma timing Code(s): R41.82 - Altered mental status, unspecified Status: Acute Assessment and Plan: suspect delirium however, given high BUN, cannot discount an element of uremia follow mentation (7) Hemoptysis: Code(s): R04.2 - Hemoptysis Status: Acute Assessment and Plan: due to edema and pneumonia previous serological testing as part of CKD evaluation was negative appears to be clearing Subjective Date/time seen: 10/21/19 16:53 Interval history: patient is weak and tired. in room. no cp or sob. not eating great. Review of Systems Cardiovascular: Cardiovascular: Reports no additional cardiovascular complaints Respiratory: Respiratory: Reports no additional respiratory complaints Gastrointestinal: Gastrointestinal: Reports no additional gastrointestinal complaints Genitourinary: Genitourinary: Reports no additional male genitourinary complaints Exam Narrative: Exam Narrative: WDWN in NAD weak looking overall skin no rash head ncat lungs clear cor reg no rub abd BS+ nontender and soft ext no edema. Objective Data Vital Signs Vital Signs: Vital Signs - 24 hr 10/20/19 18:00 10/20/19 20:00 10/20/19 21:29 Temperature 36.2 C L Pulse Rate 77 74 75 Respiratory Rate 22 H 22 H Blood Pressure 145/90 H Pulse Oximetry 97 10/20/19 21:40 10/20/19 21:41 10/20/19 22:00 Temperature Pulse Rate 88 73 78 Respiratory Rate 22 H Blood Pressure Pulse Oximetry 10/20/19 23:55 10/21/19 00:00 10/21/19 02:00 Temperature 36.1 C L Pulse Rate 76 73 76 Respiratory Rate 22 H 22 H Blood Pressure 133/68 Pulse Oximetry 97 96 10/21/19 03:03 10/21/19 03:10 10/21/19 04:00 Temperature 36.2 C L Pulse Rate 74 75 78 Respiratory Rate 20 20 22 H Blood Pressure 138/70 Pulse Oximetry 93 10/21/19 06:00 10/21/19 08:00 10/21/19 08:42 [place]
[2019-10-21 18:12] LABS: Glucose Point of Care 235 (65-105)
[2019-10-21 23:39] LABS: Glucose Point of Care 240 (65-105)
[2019-10-22] VITALS (16 sets, daily range): BP systolic 101–135; BP diastolic 55–91; PULSE 69–83; RESP 16–36; TEMP 36.6–37.1; O2SAT 91–97
[2019-10-22] MEDS: IPRATROPIUM BR 0.02% INH SOLN 0.5 MG/2.5 ML VIAL INHALATION ×2 (02:01→09:06)
[2019-10-22] MEDS: ALBUTEROL SULFATE NEB 2.5 MG/0.5 ML INH INHALATION ×4 (02:02→20:11)
[2019-10-22 04:29] LABS: Basophils Percent Auto 0.2 % (0.2-1.2); Eosinophils Percent Auto 0.1 % (0-4.4); Hematocrit 37.8 % (42.0-52.0); Hemoglobin 11.9 g/dL (14.0-18.0); Immature Granulocyte Percent A 1.3 % (0-0.5); Lymphocytes Absolute Auto 1.44 K/mm3 (0.9-3.2); Lymphocytes Percent Auto 9.6 % (18.3-44.2); Mean Corpuscular HGB Conc 31.5 g/dl (32-36); Mean Corpuscular Hemoglobin 31.2 pg (26-34); Mean Platelet Volume 11.1 fl (7.4-10.4); Monocytes Percent Auto 6.4 % (2.6-8.5); Neutrophils Absolute Auto 12.3 K/mm3 (1.3-6.7); Neutrophils Percent Auto 82.4 % (45.5-73.1); Nucleated Red Blood Cells Perc 0.3 % (0.0-0.2); Platelet Count Result 267 k/mm3 (150-375); Red Blood Count 3.82 M/mm3 (4.6-6.20); Red Cell Distribution Width 14.6 % (11.5-14.5)
[2019-10-22 04:44] LABS: Anion Gap 8 mmol/L (8-16); Calcium 9.2 mg/dL (8.4-10.2); Carbon Dioxide 25 mmol/L (22-30); Chloride 116 mmol/L (98-107); Estimated CRCL calculation 18 ml/min; Estimated Glomerular Filt Rate 17; Glucose 188 mg/dL (75-110); Potassium 4.3 mmol/L (3.4-5.0); Sodium 149 mmol/L (137-145)
[2019-10-22 04:50] LABS: Blood Urea Nitrogen 141 mg/dL (9-20)
[2019-10-22] MEDS: CENTRAL LINE FLUSH 10 ML IV PUSH ×6 (05:48→20:49)
--- NOTE | 2019-10-22 07:44 | P.PNNP_ITS ---
Progress Note: A&P Assessment and Plan (1) IMER (acute kidney injury): Code(s): N17.9 - Acute kidney failure, unspecified Status: Acute Assessment and Plan: * multifactorial ATN due to: - cardiac arrest - respiratory arrest - hemodynamic instability (shock) - acute infection (pneumonia?) * he has underlying chronic kidney disease due to cardiorenal syndrome, diabetes, hypertension, sleep apnea, vascular disease. * baseline creatinine seems to be about 2.5 or so. * he had a creatinine of 3.4 and Was improving however it has risen back to 3.5. His BUN is 141. * volume status always looks wet. However his sodium level is high and his BUN and creatinine are on the rise with the diuretics. * Will hold diuretics and give D5W to try to improve electrolytes. * He will probably need dialysis to sort this all out. However family is thinking hospice. Will try fluids and holding Lasix for now and let family decide about aggressiveness of care. (2) Chronic kidney disease, stage 4 (severe): Code(s): N18.4 - Chronic kidney disease, stage 4 (severe) Status: Chronic Assessment and Plan: * baseline creatinine ~ 2.0 - 2.5mg/dl since as far back as 2018 * more recently, 2.4mg/dl as of August 2019 * due to DM, HTN, [place], vascular disease and likely chronic prerenal azotemia (from cardiorenal syndrome) (3) Acute hypoxemic respiratory failure: Code(s): J96.01 - Acute respiratory failure with hypoxia Status: Acute Assessment and Plan: * resolving * extubated * due to pneumonia +/- pulmonary edema * CT of chest results noted * Pulmonary following * on antibiotics * COVID-19 ruled out * On no oxygen right now. Holding diuretics for now. (4) Cardiac arrest due to respiratory disorder: Code(s): J98.9 - Respiratory disorder, unspecified; I46.8 - Cardiac arrest due to other underlying condition Status: Acute Assessment and Plan: * presumably potentiated by respiratory failure * continue supportive therapy (5) Acute exacerbation of CHF (congestive heart failure): Code(s): I50.9 - Heart failure, unspecified Status: Acute Assessment and Plan: * Echo shows 20-25% ef and pulmonary hypertension * follow I/Os and repeat labs * Cardiology following (6) Altered mental status: Qualifiers: Coma depth: [place] coma 9-12 Coma timing: unspecified coma timing Code(s): R41.82 - Altered mental status, unspecified Status: Acute Assessment and Plan: * suspect delirium * however, given high BUN, cannot discount an element of uremia * His sodium level is also high which is possibly contributing. (7) Hemoptysis: Code(s): R04.2 - Hemoptysis Status: Acute Assessment and Plan: * due to edema and pneumonia * previous serological testing as part of CKD evaluation was negative * appears to be clearing Subjective Date/time seen: 10/22/19 07:44 Interval history: patient is weak and tired. Not very interactive. was talking to the nurse about considering hospice. Review of Systems Review of Systems: ROS unobtainable: Yes unobtainable due to medical condition Exam Narrative: Exam Narrative: . Well developed sleepy gentleman in no acute distress lungs are clear. Some decreased breath sounds at the bases. Heart regular rate and rhythm no rub Abdomen bowel sounds positive soft nontender
--- NOTE | 2019-10-22 07:44 | PM.PNNEP ---
Progress Note: A&P Assessment and Plan (1) IMER (acute kidney injury): Code(s): N17.9 - Acute kidney failure, unspecified Status: Acute Assessment and Plan: multifactorial ATN due to: - cardiac arrest - respiratory arrest - hemodynamic instability (shock) - acute infection (pneumonia?) he has underlying chronic kidney disease due to cardiorenal syndrome, diabetes, hypertension, sleep apnea, vascular disease. baseline creatinine seems to be about 2.5 or so. he had a creatinine of 3.4 and Was improving however it has risen back to 3.5. His BUN is 141. volume status always looks wet. However his sodium level is high and his BUN and creatinine are on the rise with the diuretics. Will hold diuretics and give D5W to try to improve electrolytes. He will probably need dialysis to sort this all out. However family is thinking hospice. Will try fluids and holding Lasix for now and let family decide about aggressiveness of care. (2) Chronic kidney disease, stage 4 (severe): Code(s): N18.4 - Chronic kidney disease, stage 4 (severe) Status: Chronic Assessment and Plan: baseline creatinine ~ 2.0 - 2.5mg/dl since as far back as 2018 more recently, 2.4mg/dl as of August 2019 due to DM, HTN, [place], vascular disease and likely chronic prerenal azotemia (from cardiorenal syndrome) (3) Acute hypoxemic respiratory failure: Code(s): J96.01 - Acute respiratory failure with hypoxia Status: Acute Assessment and Plan: resolving extubated due to pneumonia +/- pulmonary edema CT of chest results noted Pulmonary following on antibiotics COVID-19 ruled out On no oxygen right now. Holding diuretics for now. (4) Cardiac arrest due to respiratory disorder: Code(s): J98.9 - Respiratory disorder, unspecified; I46.8 - Cardiac arrest due to other underlying condition Status: Acute Assessment and Plan: presumably potentiated by respiratory failure continue supportive therapy (5) Acute exacerbation of CHF (congestive heart failure): Code(s): I50.9 - Heart failure, unspecified Status: Acute Assessment and Plan: Echo shows 20-25% ef and pulmonary hypertension follow I/Os and repeat labs Cardiology following (6) Altered mental status: Qualifiers: Coma depth: [place] coma 9-12 Coma timing: unspecified coma timing Code(s): R41.82 - Altered mental status, unspecified Status: Acute Assessment and Plan: suspect delirium however, given high BUN, cannot discount an element of uremia His sodium level is also high which is possibly contributing. (7) Hemoptysis: Code(s): R04.2 - Hemoptysis Status: Acute Assessment and Plan: due to edema and pneumonia previous serological testing as part of CKD evaluation was negative appears to be clearing Subjective Date/time seen: 10/22/19 07:44 Interval history: patient is weak and tired. Not very interactive. was talking to the nurse about considering hospice. Review of Systems Review of Systems: ROS unobtainable: Yes unobtainable due to medical condition Exam Narrative: Exam Narrative: . Well developed sleepy gentleman in no acute distress lungs are clear. Some decreased breath sounds at the bases. Heart regular rate and rhythm no rub Abdomen bowel sounds positive soft nontender Extremities 1+ edema Skin no rash Objective Data Vital Signs Vital Signs: Vital Signs - 24 hr 10/21/19 08:00 10/21/19 08:42 10/21/19 09:05 Temperature 35.8 C L Pulse Rate 78 74 74 Respiratory Rate 20 18 Blood Pressure 133/77 Pulse Oximetry 93 10/21/19 09:13 10/21/19 09:17 10/21/19 10:00 Temperature Pulse Rate 76 75 Respiratory Rate 18 Blood Pressure Pulse Oximetry 94 10/21/19 12:00 10/21/19 13:45 10/21/19 13:57 Temperature 35.8 C L Pulse R
[2019-10-22] MEDS: DEXTROSE 5% 1,000 ML 1,000 ML 100 ML IV CONT (09:33)
[2019-10-22] MEDS: TAMSULOSIN HCL 0.4 MG CAPSULE PO (09:34)
[2019-10-22] MEDS: carvediloL 6.25 MG TABLET PO (09:34)
[2019-10-22] MEDS: TOLNAFTATE 1% POWDER 45 GM BTL 1 APPLIC TOPICAL ×2 (09:34→20:50)
[2019-10-22] MEDS: ASPIRIN 81 MG ENTERIC TABLET PO (09:35)
[2019-10-22] MEDS: HEPARIN SODIUM 5,000 UNITS/ML VIAL 5000 UNITS SUB-Q ×2 (09:35→20:49)
[2019-10-22 09:40] LABS: Glucose Point of Care 236 (65-105)
[2019-10-22] MEDS: levoFLOXacin 250 MG/D5W 50 ML 250 MG/50 ML BAG 50 MG IVPB (09:42)
[2019-10-22] MEDS: INSULIN DETEMIR 100 UNITS/ML 10 UNITS SUB-Q (09:44)
--- NOTE | 2019-10-22 10:02 | PC.NURSE ---
Repetitively attempted to assist patient with swallowing crushed medications. Patient able to swallow about 505 of the applesauce mixed with the medications. Morning Entresto dose was not on floor during time of AM Medication administration. Informed of patient condition at 1001 and inquired about switching all medications to PO or holding them all, until further notice or patient condition improvement. Will non-administer morning Entresto until otherwise instructed by physician. Will continue to monitor.
[2019-10-22] MEDS: DORNASE ALFA INH SOLN 1 MG/ML 2.5 ML AMP 2.5 MG INHALATION ×2 (10:03→20:13)
--- NOTE | 2019-10-22 10:22 | PM.PNPUL ---
Progress Note: A&P Assessment and Plan (1) Altered mental status: Qualifiers: Coma depth: [place] coma 9-12 Coma timing: unspecified coma timing Code(s): R41.82 - Altered mental status, unspecified Status: Acute Assessment and Plan: Being worked up. GCS is 10 [id number]. Query stroke during this admission. Not sure what his baseline is prior to this admission (2) Acute hypoxemic respiratory failure: Code(s): J96.01 - Acute respiratory failure with hypoxia Status: Acute Assessment and Plan: - suspected ongoing aspiration, pneumonia - has received adequate course of broad spectrum antibiotics - continue duonebs Q6h scheduled - will add pulmicrot 0. 5mg bid - high risk for respiratory failure and reintubation, prognosis is poor and descaltion of therapy is appropriate. Subjective Date/time seen: 10/22/19 10:22 Interval history: Still doing poorly, aphasic. tachypnic at times. More awake today. on room air. Signs of intravascular volume depletion are present Review of Systems Review of Systems: All systems reviewed & are unremarkable except as noted in HPI and below Exam Const: General: in distress Other: tachpnic into 30's HENMT: Mouth: Yes moist mucous membranes Eyes: General: appearance normal, both eyes and all related structures Neck: Neck: supple and no JVD Resp: Auscultation: crackles (at bases ) bilateral Cardio: Rate: regular rate Rhythm: regular rhythm Heart sounds: no murmurs GI: Auscultation: normal bowel sounds Skin: General skin exam: normal color and no rashes or lesions noted Neuro: Speech: No normal speech Motor exam (neuro): Abnormal motor strength present Other: GCS is 10. Extrem: General: normal to inspection, no edema and no pedal edema Objective Data Vital Signs Vital Signs: Vital Signs - 24 hr 10/21/19 12:00 10/21/19 13:45 10/21/19 13:57 Temperature 35.8 C L Pulse Rate 75 69 89 Respiratory Rate 20 22 H 20 Blood Pressure 138/76 Pulse Oximetry 94 10/21/19 16:00 10/21/19 19:19 10/21/19 19:31 Temperature 36.1 C L Pulse Rate 80 68 71 Respiratory Rate 20 32 H 32 H Blood Pressure 146/74 H Pulse Oximetry 95 91 10/21/19 20:00 10/21/19 23:45 10/22/19 00:00 Temperature 36.6 C 36.7 C Pulse Rate 76 70 78 Respiratory Rate 20 20 Blood Pressure 104/52 L 150/56 H Pulse Oximetry 97 95 10/22/19 02:02 10/22/19 02:13 10/22/19 04:00 Temperature 36.6 C Pulse Rate 75 83 75 Respiratory Rate 34 H 34 H 20 Blood Pressure 135/76 Pulse Oximetry 97 10/22/19 08:00 10/22/19 09:34 10/22/19 09:50 Temperature 37.0 C Pulse Rate 73 71 Respiratory Rate 18 Blood Pressure 112/91 H Pulse Oximetry 95 94 10/22/19 09:55 10/22/19 10:04 Temperature Pulse Rate 78 77 Respiratory Rate 24 H 24 H Blood Pressure Pulse Oximetry Intake/Output Intake/Output: Intake & Output 10/19/19 10/20/19 10/21/19 10/22/19 23:59 23:59 23:59 23:59 Intake Total 1365 185 160 0 Output Total 1500 1645 900 650 Balance -753 -1890 -740 -650 Meds/Results Medications: Active Medications Generic Name Dose Route Start Last Admin Trade Name Freq PRN Reason Stop Dose Admin Hydrocodone Bitart/Acetaminophen 1 tab 10/20/19 10:15 10/22/19 09:33 [place] 7.5-325 Mg PO 1 tab Q4H PRN Administration Pain Rated 4-6 Albuterol 2.5 mg 10/17/19 14:00 10/22/19 09:06 Albuterol Sulf Neb 2.5mg/0.5ml INHALATION 2.5 mg Q6HRT ENRIQUETA Administration Aspirin 81 mg 10/15/19 09:00 10/22/19 09:35 Aspirin Ec PO 81 mg QAM ENRIQUETA Administration Carvedilol 6.25 mg 10/19/19 09:40 10/22/19 09:34 Coreg PO 6.25 mg Q12HR ENRIQUETA Administration Dextrose 12.5 gm 10/14/19 12:04 Dextrose 50% Syringe IV PUSH PRN PRN Hypoglycemia Protocol Dornase Oleksandr 2.5 mg 10/16/19 10:50 10/22/19 10:03 Pulmozyme INHALATION 2.5 mg Q12HRT ENRIQUETA Administration Fentanyl Citrate 12.5 mcg
--- NOTE | 2019-10-22 10:31 | PM.PNCARD ---
Progress Note: A&P Assessment and Plan (1) Elevated troponin: Code(s): R79.89 - Other specified abnormal findings of blood chemistry Status: Acute Assessment and Plan: thought most likely type 2 infarction rather than related to acute plaque rupture. continue supportive care. Known underlying CAD. (2) Coronary artery disease: Code(s): I25.10 - Atherosclerotic heart disease of [place] coronary artery without angina pectoris Status: Acute Assessment and Plan: known history of multiple stents. Continue aspirin 81 mg p.o. daily the hold Plavix for now given hemoptysis (3) Cardiac arrest due to respiratory disorder: Code(s): J98.9 - Respiratory disorder, unspecified; I46.8 - Cardiac arrest due to other underlying condition Status: Acute Assessment and Plan: Stable, extubated. Continue supportive care. Chest physiotherapy, resp status improving. Per Critical Care Prognosis is poor, unfortunately. (4) Pulmonary edema: Qualifiers: Chronicity: acute Qualified Code(s): J81.0 - Acute pulmonary edema Code(s): J81.1 - Chronic pulmonary edema Status: Acute Assessment and Plan: COVID Negative. Diuresis held today. P.r.n. diuresis for now, but he will require moving forward. (5) Acute exacerbation of CHF (congestive heart failure): Code(s): I50.9 - Heart failure, unspecified Status: Acute Assessment and Plan: continue dobutamine for management of heart failure, maintaining negative fluid balance on Dobutamine. Will reassess tomorrow if able to discontinue. Monitor for tachyarrhythmias on dobutamine. Monitor and replete electrolytes as appropriate. Continue for another 24 hours. Attempt to discontinue Monday or Monday. (6) Acute on chronic renal failure: Code(s): N17.9 - Acute kidney failure, unspecified; N18.9 - Chronic kidney disease, unspecified Status: Acute Assessment and Plan: on dobutamine, very slow improvement in renal function high BUN persists. Urine output stable. (7) Shock: Code(s): R57.9 - Shock, unspecified Status: Acute Assessment and Plan: Resolved, off pressors. Extubated. EF 20-25%. Additional Plan 84-year-old man with longstanding coronary disease, significant ischemic cardiomyopathy who had an arrest in the emergency room at the beginning of this hospitalization. He did not lose his rhythm appeared to be primarily a respiratory event. Following a prolonged ventilator run he is hemodynamically stable and is oxygenating but is clearly worse regarding his mental status and is not very responsive I know him see this man in my office for many years his mental status is usually normal. He has been placed on appropriate treatment for his ischemic myopathy his blood pressure has tolerated institution of metoprolol and advancement in his Entresto dosage. I do not believe any further medical adjustments are necessary today. It seems that his prognosis for good recovery is poor and family is understandably having difficulty deciding regarding hospice services as this gentleman was not in this condition before this hospitalization Terry Saldivar MD [facility] Subjective Date/time seen: 10/22/19 10:31 Interval history: 84-year-old admitted for shortness of breath, hemoptysis , CHF. Status post arrest in ER Patient has been on the floor for the last couple of days. Does not offer any 6 complaints of shortness of breath upon arising but is lethargic and somewhat delusional and very difficult to arouse both yesterday and today. Apparently conversations have been a ongoing between hospitalist service and family regarding consideration of hospice services. Patient is tachypneic but is not reporting dyspnea Objective Data Vital Signs Vital Signs: Vital Signs - 24 hr 10/21/19 12:00 10/21/19 13:45 10/21/19 13:57 Temperature 96.5 F L Pulse Rate 75 69
--- NOTE | 2019-10-22 10:36 | PM.PNCARD ---
Progress Note: A&P Assessment and Plan (1) Acute exacerbation of CHF (congestive heart failure): Code(s): I50.9 - Heart failure, unspecified Status: Acute Assessment and Plan: Admitted with CHF which resulted in a respiratory arrest. Was intubated in transiently on dobutamine. Known cardiomyopathy, EF 20-25%. Chest x-ray yesterday showed no change compared to October 18 with CHF and pulmonary edema possible pneumonia. Diuretics are being held because of worsening kidney disease , and he is being given IV fluids. Continue carvedilol, Entresto. (2) Coronary artery disease: Code(s): I25.10 - Atherosclerotic heart disease of [place] coronary artery without angina pectoris Status: Acute Assessment and Plan: History of CAD and stents, admitted with elevated troponin thought to be a type 2 [place]. Coronary disease appears stable. (3) Acute hypoxemic respiratory failure: Code(s): J96.01 - Acute respiratory failure with hypoxia Status: Acute Assessment and Plan: Improved, currently on room air, O2 sats in the mid 90s. Still on antibiotics for possible pneumonia. (4) Acute on chronic renal failure: Code(s): N17.9 - Acute kidney failure, unspecified; N18.9 - Chronic kidney disease, unspecified Status: Acute Assessment and Plan: Started on D5W by Dr. Krishnamurthy for worsening kidney disease, and hypernatremia. (5) Delirium: Code(s): R41.0 - Disorientation, unspecified Status: Acute Assessment and Plan: Remains lethargic. Prognosis thought to be poor. Family may consider hospice if there has been no significant improvement in the next couple of days. Subjective Date/time seen: 10/22/19 10:36 FU CHF. Patient with longstanding CAD and history of stents, significant ischemic cardiomyopathy and pacemaker followed by DR. Saldivar who came to the emergency room with a CHF exacerbation and had a respiratory arrest in the emergency room and was on the ventilator a prolonged period of time. Mental status has been poor, with the patient being lethargic and somewhat delusional. Acute renal failure on chronic kidney disease. He has been having CHF and diuresed, metoprolol added and Entresto advanced. Prognosis has been poor and family is deciding if he should go on hospice. Date of service: 10/22/2019 Patient is lethargic today. Dr. Krishnamurthy recommended D5 W at 100 cc an hour for his worsening renal function and electrolytes. Patient's I's and O's yesterday were 160 in and 900 out. Vital signs have been stable. Telemetry continues to show questionable AFib, intermittently paced rhythm with frequent PVCs and nonsustained ventricular tachycardia. Review of Systems Review of Systems: ROS unobtainable: Yes unobtainable due to mental status (lethargic) Constitutional: Constitutional: Reports weakness Eyes: Eyes: Reports no additional eye complaints ENT: Denies epistaxis Cardiovascular: Cardiovascular: Denies chest pain and Denies leg edema Respiratory: Respiratory: Reports chest congestion and Reports cough Gastrointestinal: Gastrointestinal: Denies abdominal pain Genitourinary: Genitourinary: Denies hematuria Musculoskeletal: Musculoskeletal: Reports no additional musculoskeletal complaints Integumentary/Breasts: Skin/Breast: Denies rash Neurologic: Reports confusion Psychiatric: Psychiatric: Reports confusion Exam Const: General: comfortable and no acute distress Other: Elderly male who appears chronically ill, eyes open but not following commands, slightly tachypneic, not clearing upper respiratory secretions well. HENMT: Mouth: Yes dry mucous membranes Eyes: EOM: EOMs intact bilaterally Neck: Neck: supple Thyroid: thyroid normal Resp: Auscultation: not clear to
[2019-10-22 12:41] LABS: Glucose Point of Care 249 (65-105)
[2019-10-22] MEDS: INSULIN ASPART (*BKC) 100 UNITS/ML SUB-Q (13:24)
--- NOTE | 2019-10-22 14:34 | PCSTNOTE ---
The patient treatment was not able to be completed on 10/22/19 due to not arousing to verbalization or touch by this therapist. Patient is not safe to attempt oral feedings and unable to complete exercises. Will plan to continue treatment per plan of care.
--- NOTE | 2019-10-22 17:16 | P.PNIM_ITS ---
Progress Note: A&P Assessment and Plan (1) Acute exacerbation of CHF (congestive heart failure): Code(s): I50.9 - Heart failure, unspecified Status: Acute Assessment and Plan: * Ef noted to be around 20-25% systolic dysfunction. * Off dobutamine now. * Creatinine went up so we will decrease the lasix frequency to 40 mg BID. * Fluid balance was -2150 ml 10/22/19 17:16 patient with severe cardiomyopathy off dobutamine drip, very somnolent unable to provide any review of symptoms, prognosis is very poor I met with the patient family and they have decided to withdraw the care and place the patient under hospice, will discharge the patient tomorrow. (2) Acute hypoxemic respiratory failure: Code(s): J96.01 - Acute respiratory failure with hypoxia Status: Acute Assessment and Plan: * Likely due to pulmonary edema and PNA. * He was extubated . * Has possible mucus plug or atelectasis on the left hemithorax has resolved. (3) Delirium: Code(s): R41.0 - Disorientation, unspecified Status: Acute Assessment and Plan: * Most likely multifactorial due to hypoxia, PNA, ICU delirium. * Unclear what his baseline mental status is. I called the family with no answer yet. * I will have a discussion with the about goals of care. * Ct of the head was negative for an acute process. * Avoid medications with high anticholinergic burden. (4) Pulmonary edema: Qualifiers: Chronicity: acute Qualified Code(s): J81.0 - Acute pulmonary edema Code(s): J81.1 - Chronic pulmonary edema Status: Acute Assessment and Plan: * As detailed above. (5) Type 2 diabetes mellitus: Code(s): E11.9 - Type 2 diabetes mellitus without complications Status: Acute Assessment and Plan: * Continue current management. * He is NPO due to delirium. (6) Shock: Code(s): R57.9 - Shock, unspecified Status: Acute Assessment and Plan: * Possible cardiogenic and septic. * On wide spectrum antibiotics for possible PNA. * Blood pressure stable now. (7) Chronic kidney disease, stage IV (severe): Code(s): N18.4 - Chronic kidney disease, stage 4 (severe) Status: Acute Assessment and Plan: * May have acute injury on CKD, likely ATN from cardiac arrest hypoperfusion, underlying infection. * Nephrology is following. (8) Pneumonia: Qualifiers: Laterality: bilateral Lung location: lower lobe of lung Pneumonia type: due to unspecified organism Qualified Code(s): J18.9 - Pneumonia, unspecified organism Code(s): J18.9 - Pneumonia, unspecified organism Status: Acute Assessment and Plan: * On levofloxacin, cefepime and vancomycin. (9) Hemoptysis: Code(s): R04.2 - Hemoptysis Status: Acute Assessment and Plan: * This problem seems to be resolved now. * Pulmonary has been following. (10) Suspected COVID-19 virus infection: Code(s): Z20.828 - Contact with and (suspected) exposure to other viral communicable diseases Status: Acute Assessment and Plan: * Negative. Subjective Date/time seen: 10/22/19 17:16 patient with severe cardiomyopathy off dobutamine drip, very somnolent unable to provide any review of symptoms, prognosis is very poor I met with the patient family and they have decided to withdraw the care and place the patient under hospice, will discharge the patient tomorrow. Review of Systems Review of Systems: ROS unobtainable: Yes unobtainable
--- NOTE | 2019-10-22 17:16 | PM.IMPN ---
Progress Note: A&P Assessment and Plan (1) Acute exacerbation of CHF (congestive heart failure): Code(s): I50.9 - Heart failure, unspecified Status: Acute Assessment and Plan: Ef noted to be around 20-25% systolic dysfunction. Off dobutamine now. Creatinine went up so we will decrease the lasix frequency to 40 mg BID. Fluid balance was -2150 ml 10/22/19 17:16 patient with severe cardiomyopathy off dobutamine drip, very somnolent unable to provide any review of symptoms, prognosis is very poor I met with the patient family and they have decided to withdraw the care and place the patient under hospice, will discharge the patient tomorrow. (2) Acute hypoxemic respiratory failure: Code(s): J96.01 - Acute respiratory failure with hypoxia Status: Acute Assessment and Plan: Likely due to pulmonary edema and PNA. He was extubated . Has possible mucus plug or atelectasis on the left hemithorax has resolved. (3) Delirium: Code(s): R41.0 - Disorientation, unspecified Status: Acute Assessment and Plan: Most likely multifactorial due to hypoxia, PNA, ICU delirium. Unclear what his baseline mental status is. I called the family with no answer yet. I will have a discussion with the about goals of care. Ct of the head was negative for an acute process. Avoid medications with high anticholinergic burden. (4) Pulmonary edema: Qualifiers: Chronicity: acute Qualified Code(s): J81.0 - Acute pulmonary edema Code(s): J81.1 - Chronic pulmonary edema Status: Acute Assessment and Plan: As detailed above. (5) Type 2 diabetes mellitus: Code(s): E11.9 - Type 2 diabetes mellitus without complications Status: Acute Assessment and Plan: Continue current management. He is NPO due to delirium. (6) Shock: Code(s): R57.9 - Shock, unspecified Status: Acute Assessment and Plan: Possible cardiogenic and septic. On wide spectrum antibiotics for possible PNA. Blood pressure stable now. (7) Chronic kidney disease, stage IV (severe): Code(s): N18.4 - Chronic kidney disease, stage 4 (severe) Status: Acute Assessment and Plan: May have acute injury on CKD, likely ATN from cardiac arrest hypoperfusion, underlying infection. Nephrology is following. (8) Pneumonia: Qualifiers: Laterality: bilateral Lung location: lower lobe of lung Pneumonia type: due to unspecified organism Qualified Code(s): J18.9 - Pneumonia, unspecified organism Code(s): J18.9 - Pneumonia, unspecified organism Status: Acute Assessment and Plan: On levofloxacin, cefepime and vancomycin. (9) Hemoptysis: Code(s): R04.2 - Hemoptysis Status: Acute Assessment and Plan: This problem seems to be resolved now. Pulmonary has been following. (10) Suspected COVID-19 virus infection: Code(s): Z20.828 - Contact with and (suspected) exposure to other viral communicable diseases Status: Acute Assessment and Plan: Negative. Subjective Date/time seen: 10/22/19 17:16 patient with severe cardiomyopathy off dobutamine drip, very somnolent unable to provide any review of symptoms, prognosis is very poor I met with the patient family and they have decided to withdraw the care and place the patient under hospice, will discharge the patient tomorrow. Review of Systems Review of Systems: ROS unobtainable: Yes unobtainable due to medical condition Exam Const: General: comfortable and no acute distress HENMT: General nose exam: Normal nares present Eyes: Sclera: sclerae normal Neck: Neck: supple Resp: Other: bilateral poor air entry Cardio: Rate: regular rate Rhythm: regular rhythm Skin: General skin exam: normal color Neuro: Other: patient is quite somnolent Extrem: General: normal to inspection Psych: Other: patient is qu
--- NOTE | 2019-10-22 19:53 | PC.NURSE ---
LATE ENTRY This note is being entered to document information to the patient's record. The following information was omitted on [10/13/19], by [Emmanuel Carter]. 10/13/19 - 50 Restraint Interventions: comfort addressed, toileting addressed, fluid offered/IVF, circulation check, Pt/family educated, release/massage/ROM extremity, oral care, nutrition addressed.
[2019-10-22] MEDS: BUDESONIDE RESPULE NEB 0.5 MG/2 ML AMP INHALATION (20:11)
[2019-10-23] VITALS (8 sets, daily range): PULSE 68–78; RESP 22–36; O2SAT 91
[2019-10-23] MEDS: ALBUTEROL SULFATE NEB 2.5 MG/0.5 ML INH INHALATION ×3 (01:52→13:20)
[2019-10-23] MEDS: CENTRAL LINE FLUSH 10 ML IV PUSH ×2 (05:37)
[2019-10-23] MEDS: DORNASE ALFA INH SOLN 1 MG/ML 2.5 ML AMP 2.5 MG INHALATION (08:46)
[2019-10-23] MEDS: BUDESONIDE RESPULE NEB 0.5 MG/2 ML AMP INHALATION (08:46)
--- NOTE | 2019-10-23 10:20 | P.DS_ITS ---
DS: Admitting Diagnosis Admitting Diagnosis Admitting Diagnosis: Respiratory arrest,CHF Exacerbation,Elevated trop DS: Discharge Diagnosis Discharge Diagnosis (1) Acute exacerbation of CHF (congestive heart failure): Code(s): I50.9 - Heart failure, unspecified Status: Acute Assessment and Plan: * Ef noted to be around 20-25% systolic dysfunction. * Off dobutamine now. * Creatinine went up so we will decrease the lasix frequency to 40 mg BID. * Fluid balance was -2150 ml 10/22/19 17:16 patient with severe cardiomyopathy off dobutamine drip, very somnolent unable to provide any review of symptoms, prognosis is very poor I met with the patient family and they have decided to withdraw the care and place the patient under hospice, will discharge the patient tomorrow. (2) Acute hypoxemic respiratory failure: Code(s): J96.01 - Acute respiratory failure with hypoxia Status: Acute Assessment and Plan: * Likely due to pulmonary edema and PNA. * He was extubated . * Has possible mucus plug or atelectasis on the left hemithorax has resolved. (3) Delirium: Code(s): R41.0 - Disorientation, unspecified Status: Acute Assessment and Plan: * Most likely multifactorial due to hypoxia, PNA, ICU delirium. * Unclear what his baseline mental status is. I called the family with no answer yet. * I will have a discussion with the about goals of care. * Ct of the head was negative for an acute process. * Avoid medications with high anticholinergic burden. (4) Pulmonary edema: Qualifiers: Chronicity: acute Qualified Code(s): J81.0 - Acute pulmonary edema Code(s): J81.1 - Chronic pulmonary edema Status: Acute Assessment and Plan: * As detailed above. (5) Type 2 diabetes mellitus: Code(s): E11.9 - Type 2 diabetes mellitus without complications Status: Acute Assessment and Plan: * Continue current management. * He is NPO due to delirium. (6) Shock: Code(s): R57.9 - Shock, unspecified Status: Acute Assessment and Plan: * Possible cardiogenic and septic. * On wide spectrum antibiotics for possible PNA. * Blood pressure stable now. (7) Chronic kidney disease, stage IV (severe): Code(s): N18.4 - Chronic kidney disease, stage 4 (severe) Status: Acute Assessment and Plan: * May have acute injury on CKD, likely ATN from cardiac arrest hypoperfusion, underlying infection. * Nephrology is following. (8) Pneumonia: Qualifiers: Pneumonia type: due to unspecified organism Laterality: bilateral Lung location: lower lobe of lung Qualified Code(s): J18.9 - Pneumonia, unspecified organism Code(s): J18.9 - Pneumonia, unspecified organism Status: Acute Assessment and Plan: * On levofloxacin, cefepime and vancomycin. (9) Hemoptysis: Code(s): R04.2 - Hemoptysis Status: Acute Assessment and Plan: * This problem seems to be resolved now. * Pulmonary has been following. (10) Suspected COVID-19 virus infection: Code(s): Z20.828 - Contact with and (suspected) exposure to other viral communicable diseases Status: Acute Assessment and Plan: * Negative. DS: Summary Hospital Course Reason for hospitalization: Chief complaint: Coughing up blood Narrative: The patient was seen and examined well still down in the ER. Desean Montiel is a 84 year old male With a past medical history of coronary artery disease, CHF, obstructive
--- NOTE | 2019-10-23 10:20 | PM.DS ---
DS: Admitting Diagnosis Admitting Diagnosis Admitting Diagnosis: Respiratory arrest,CHF Exacerbation,Elevated trop DS: Discharge Diagnosis Discharge Diagnosis (1) Acute exacerbation of CHF (congestive heart failure): Code(s): I50.9 - Heart failure, unspecified Status: Acute Assessment and Plan: Ef noted to be around 20-25% systolic dysfunction. Off dobutamine now. Creatinine went up so we will decrease the lasix frequency to 40 mg BID. Fluid balance was -2150 ml 10/22/19 17:16 patient with severe cardiomyopathy off dobutamine drip, very somnolent unable to provide any review of symptoms, prognosis is very poor I met with the patient family and they have decided to withdraw the care and place the patient under hospice, will discharge the patient tomorrow. (2) Acute hypoxemic respiratory failure: Code(s): J96.01 - Acute respiratory failure with hypoxia Status: Acute Assessment and Plan: Likely due to pulmonary edema and PNA. He was extubated . Has possible mucus plug or atelectasis on the left hemithorax has resolved. (3) Delirium: Code(s): R41.0 - Disorientation, unspecified Status: Acute Assessment and Plan: Most likely multifactorial due to hypoxia, PNA, ICU delirium. Unclear what his baseline mental status is. I called the family with no answer yet. I will have a discussion with the about goals of care. Ct of the head was negative for an acute process. Avoid medications with high anticholinergic burden. (4) Pulmonary edema: Qualifiers: Chronicity: acute Qualified Code(s): J81.0 - Acute pulmonary edema Code(s): J81.1 - Chronic pulmonary edema Status: Acute Assessment and Plan: As detailed above. (5) Type 2 diabetes mellitus: Code(s): E11.9 - Type 2 diabetes mellitus without complications Status: Acute Assessment and Plan: Continue current management. He is NPO due to delirium. (6) Shock: Code(s): R57.9 - Shock, unspecified Status: Acute Assessment and Plan: Possible cardiogenic and septic. On wide spectrum antibiotics for possible PNA. Blood pressure stable now. (7) Chronic kidney disease, stage IV (severe): Code(s): N18.4 - Chronic kidney disease, stage 4 (severe) Status: Acute Assessment and Plan: May have acute injury on CKD, likely ATN from cardiac arrest hypoperfusion, underlying infection. Nephrology is following. (8) Pneumonia: Qualifiers: Pneumonia type: due to unspecified organism Laterality: bilateral Lung location: lower lobe of lung Qualified Code(s): J18.9 - Pneumonia, unspecified organism Code(s): J18.9 - Pneumonia, unspecified organism Status: Acute Assessment and Plan: On levofloxacin, cefepime and vancomycin. (9) Hemoptysis: Code(s): R04.2 - Hemoptysis Status: Acute Assessment and Plan: This problem seems to be resolved now. Pulmonary has been following. (10) Suspected COVID-19 virus infection: Code(s): Z20.828 - Contact with and (suspected) exposure to other viral communicable diseases Status: Acute Assessment and Plan: Negative. DS: Summary Hospital Course Reason for hospitalization: Chief complaint: Coughing up blood Narrative: The patient was seen and examined well still down in the ER. Desean Montiel is a 84 year old male With a past medical history of coronary artery disease, CHF, obstructive sleep apnea and chronic kidney disease stage 4 presented to the ER via EMS due to coughing up bloody sputum for 24 hours. Patient has had weakness since last week after helping his into the house. He spent 3 days in bed after that. He has had no complaints of chest pain per family. upon EMS arrival the patient was noted to have low oxygen saturations down in the 70s. They have some passive breaths with BVM. Patient was awake
[2019-10-23] MEDS: NEOMYCIN/POLYMYXIN/BACITRACIN OINTMENT PACKET 1 PACKET TOPICAL (12:55)
--- NOTE | 2019-10-23 14:06 | PCSTNOTE ---
Patient not seen for skilled ST tx this date secondary to being discharged to home on hospice per RN.
== END 2019-10-23 14:05 | disposition hospice, home (50) | DRG 871 ==
LOC: ANHED 04:53 → ANHICU 06:22 → ANHIMU 10-23 10:20 → ANHICU 10-24 10:58 → ANHIMU 10-24 10:58
PROVIDERS: Hospitalist; Internal Medicine; Internal Medicine Cardiovascular Disease; Internal Medicine Critical Care Medicine; Admitting Provider Internal Medicine; Emergency Provider Emergency Medicine; PCP Family Medicine; Visit Provider Family Medicine
DX: A41.9 Sepsis, unspecified organism (principal); J18.9 Pneumonia, unspecified organism; J96.01 Acute respiratory failure with hypoxia; N17.0 Acute kidney failure with tubular necrosis; R65.21 Severe sepsis with septic shock; R57.0 Cardiogenic shock; I50.43 Acute on chronic combined systolic (congestive) and diastolic (congestive) heart failure; I46.8 Cardiac arrest due to other underlying condition; I21.A1 Myocardial infarction type 2; J69.0 Pneumonitis due to inhalation of food and vomit; I13.0 Hypertensive heart and chronic kidney disease with heart failure and stage 1 through stage 4 chronic kidney disease, or unspecified chronic kidney disease; N18.4 Chronic kidney disease, stage 4 (severe); J98.11 Atelectasis; R04.2 Hemoptysis; Z20.828 Contact with and (suspected) exposure to other viral communicable diseases; E11.22 Type 2 diabetes mellitus with diabetic chronic kidney disease; I25.10 Atherosclerotic heart disease of native coronary artery without angina pectoris; G47.33 Obstructive sleep apnea (adult) (pediatric); N40.0 Benign prostatic hyperplasia without lower urinary tract symptoms; E11.42 Type 2 diabetes mellitus with diabetic polyneuropathy; E78.2 Mixed hyperlipidemia; E11.21 Type 2 diabetes mellitus with diabetic nephropathy; M10.9 Gout, unspecified; E11.319 Type 2 diabetes mellitus with unspecified diabetic retinopathy without macular edema; I48.0 Paroxysmal atrial fibrillation; E03.9 Hypothyroidism, unspecified; D63.1 Anemia in chronic kidney disease; Z96.651 Presence of right artificial knee joint; I25.5 Ischemic cardiomyopathy; Z79.02 Long term (current) use of antithrombotics/antiplatelets; Z95.0 Presence of cardiac pacemaker; R41.0 Disorientation, unspecified; Z85.828 Personal history of other malignant neoplasm of skin; Z95.5 Presence of coronary angioplasty implant and graft; I25.2 Old myocardial infarction; Z90.49 Acquired absence of other specified parts of digestive tract; Z98.84 Bariatric surgery status; Z87.891 Personal history of nicotine dependence
CPT/HCPCS: 31500; 36415; 36556; 36569; 36600; 51702; 70450; 71045; 71250; 80048; 80053; 80202; 82140; 82375; 82805; 83050; 83605; 83735; 83880; 84100; 84132; 84484; 85025; 85027; 85610; 85730; 87040; 87070; 87205; 87635; 92526; 92610; 93005; 93306; 93970; 94003; 94640; 94667; 94669; 96365; 96366; 96367; 96368; 96375; 99291; A9270; C1751; C9803; G0378; J0131; J0171; J0360; J0692; J1100; J1250; J1644; J1815; J1940; J1956; J2250; J2370; J3010; J3370; J7030; J7040; J7060; J7070; U0003